=== PATIENT | female | born 1930 | race Caucasian/White ===

== ENCOUNTER 2018-03-22 00:31 | Inpatient (IN) | payer MEDICARE ==
[2018-03-22] MEDS ORDERED: NS 0.9% 1000 ML* 1,000 ML IV ONE (01:37)
--- NOTE | 2018-03-22 01:42 | ED ---
Abdominal Pain/Female - HPI Summary HPI Summary: The pt is a 87 y.o female who is presenting to the [facility] with a chief complaint of RUQ pain s/p fall. As per triage note, the pt has had multiple falls and left her stove on. The pt arrived via ambulance after alert was received upon fall. The Pt is responsive, alert to her name, the month as well as her address. She states she lives alone. She denies LOC. She receives assistance with a walker in order to ambulate. Pt also reports back pain and head injury s/p fall. - History of Current Complaint Chief Complaint: EDHipPelvisInjury Stated Complaint: FALL Time Seen by Provider: 03/22/18 01:18 Hx Obtained From: Patient, EMS Hx Last Menstrual Period: n/a Onset/Duration: Sudden Onset Timing: Constant Severity Initially: Severe Severity Currently: Severe Pain Intensity: 8 Pain Scale Used: 0-10 Numeric Location: Discrete At: RUQ Aggravating Factor(s): Nothing Alleviating Factor(s): Nothing Associated Signs and Symptoms: Positive: Back Pain, Other: - Head injury; Negative LOC Allergies/Adverse Reactions: Allergies Allergy/AdvReac Type Severity Reaction Status Date / Time Adhesive Tape [Plastic Tape] Allergy See Comment Verified 12/24/13 16:52 levofloxacin Allergy See Comment Verified 03/22/18 04:53 PMH/Surg Hx/FS Hx/Imm Hx Cardiovascular History: Reports: Hx Hypertension Sensory History: Denies: Hx Deafness Opthamlomology History: Denies: Hx Legally Blind - Surgical History Surgery Procedure, Year, and Place: bladder, B/L hip, appy, cholecystectomy, tubal ligatiion, hysterectomy Infectious Disease History: Yes Infectious Disease History: Denies: Traveled Outside the [place] in Last 30 Days - Family History Family History: Reviewed and Noncontributory - Social History Occupation: Retired Lives: Alone Alcohol Use: Occasionally Substance Use Type: Reports: None, Prescribed Review of Systems Constitutional: Negative Eyes: Negative ENT: Negative Cardiovascular: Negative Respiratory: Negative Positive: Abdominal Pain - RUQ Genitourinary: Negative Musculoskeletal: Other - Back pain Skin: Negative Neurological: Other - Head injury Negative: Syncope Psychological: Normal All Other Systems Reviewed And Are Negative: Yes Physical Exam - Summary Physical Exam Summary: VITAL SIGNS: Reviewed. GENERAL: Patient is a well-developed and nourished (FEMALE) who is lying comfortable in the stretcher. Patient is not in any acute respiratory distress. HEAD AND FACE: No signs of trauma. No ecchymosis, hematomas or skull depressions. No sinus tenderness. EYES: PERRLA, EOMI x 2, No injected conjunctiva, no nystagmus. EARS: Hearing grossly intact. Ear canals and tympanic membranes are within normal limits. MOUTH: Oropharynx within normal limits. NECK: Supple, trachea is midline, no adenopathy, no JVD, no carotid bruit, no c- spine tenderness, neck with full ROM. CHEST: Symmetric, no tenderness at palpation LUNGS: Clear to auscultation bilaterally. No wheezing or crackles. CVS: Regular rate and rhythm, S1 and S2 present, no murmurs or gallops appreciated. ABDOMEN: RUQ Tenderness EXTREMITIES: FROM in all major joints, no edema, no cyanosis or clubbing. NEURO: Alert and oriented x 3. No acute neurological deficits. Speech is normal and follows commands. SKIN: Dry and warm Triage Information Reviewed: Yes Vital Signs On Initial Exam: Initial Vitals Temp Pulse Resp BP Pulse Ox 97.4 F 59 20 143/65 90 03/22/18 01:04 03/22/18 01:04 03/22/18 01:04 03/22/18 01:04 03/22/18 01:04 Vital Signs Reviewed: Yes Diagnostics - Vital Signs Vital Signs Temp Pulse Resp BP Pulse Ox 03/22/18 01:04 97.4 F 59 20 143/65 90 - Laboratory Result Diagrams: 03/22/18 02:05 03/22/18 02:05 Lab Statement: Any lab studies that have been ordered have been reviewed, and results considered in the medical decision making process. - CT CT C-spine CT Interpretation Completed By: Radiologist - As per radiologist, the CT C- spine reveals no acute findings. The ED Physician has reviewed this radiology report. CT Brain CT Interpretation Completed By: Radiologist - As per radiologist, the CT Brain reveals no acute findings. The ED Physician has reviewed this radiology report. - EKG 0115 EKG Rhythm: Sinus Bradycardia - [address] Segment: Non-Specific EKG Interpretation: Normal axis, and normal intervals at 0115 Abdominal Pain Fem Course/Dx - Course Course Of Treatment: The pt is a 87 y/o female with a chief complaint of RUQ pain s/p falls. She reportedly fell multiple times as per EMS and triage notes. The pt will be signed out to Dr. Balderrama pending disposition and Ct Chest/Abd/ Pelvis results. The dx will be fall and right sided abd pain. - Diagnoses Provider Diagnoses: Right sided abdominal pain, Fall Discharge - Sign-Out/Discharge Documenting (check all that apply): Sign-Out Patient Signing out patient TO: Shmuel Balderrama - Pending disposition and CT Chest/Abd/ Pelvis - Discharge Plan Condition: Stable Referrals: Renato Solomon MD [Primary Care Provider] - - Attestation Statements Document Initiated by Scribe: Yes Documenting Scribe: Jim Figueroa Provider For Whom Scribe is Documenting (Include Credential): Dr. Jung Rivera Scribe Attestation: Jim Reyna, scribed for Dr. Jung Rivera on 03/22/18 at 0657.
[2018-03-22 02:22] LABS: ABS Basophils 0 10^3/ul (0-0.2); ABS Eosinophils 0.1 10^3/ul (0-0.6); ABS Lymphocytes 2.1 10^3/ul (1.0-4.8); ABS Monocytes 0.5 10^3/ul (0-0.8); ABS Neutrophils 4.3 10^3/ul (1.5-7.7); ABS Nucleated RBC 0 10^3/ul; Eosinophil % 1.3 % (0-6); Hematocrit 40 % (35-47); Hemoglobin 13.4 g/dl (12.0-16.0); Lymphocyte % 29.5 % (25-47); Mean Corpuscular HGB Conc 34 g/dl (31-36); Mean Corpuscular Hemoglobin 31 pg (27-31); Mean Corpuscular Volume 91 fL (80-97); Mean Platelet Volume 6.7 um3 (7.4-10.4); Nucleated Red Blood Cells % 0; Platelet Count 229 10^3/ul (150-450); Red Blood Count 4.36 10^6/ul (4.00-5.40); Red Cell Distribution Width 14 % (10.5-15)
[2018-03-22 02:30] LABS: INR 0.88 (0.77-1.02)
[2018-03-22 02:37] LABS: EGFR Non-African American 46.7 (>60)
[2018-03-22] MEDS ORDERED: Iodixanol* (CONTRAST) 320 MG/ML 100 ML SDV IV ONE (02:55)
--- NOTE | 2018-03-22 05:00 | RAD ---
EXAM: CT Head Without Intravenous Contrast CLINICAL HISTORY: 87 years old, female; Injury or trauma; Fall TECHNIQUE: Axial computed tomography images of the head/brain without intravenous contrast. All CT scans at this facility use at least one of these dose optimization techniques: automated exposure control; mA and/or kV adjustment per patient size (includes targeted exams where dose is matched to clinical indication); or iterative reconstruction. COMPARISON: No relevant prior studies available. FINDINGS: Brain: There is moderate diffuse cerebral atrophy present, consistent with this patient's age. There is moderate diffuse heterogeneity of the white matter attenuation, consistent with chronic white matter ischemic changes. No hemorrhage. Ventricles: Unremarkable. No ventriculomegaly. Bones/joints: Unremarkable. No acute fracture. Soft tissues: Unremarkable. Sinuses: Unremarkable as visualized. No acute sinusitis. Mastoid air cells: Unremarkable as visualized. No mastoid effusion. IMPRESSION: No acute findings.
--- NOTE | 2018-03-22 05:07 | RAD ---
EXAM: CT Cervical Spine Without Intravenous Contrast CLINICAL HISTORY: 87 years old, female; Injury or trauma; Fall; Initial encounter; Abrasion TECHNIQUE: Axial computed tomography images of the cervical spine without intravenous contrast. All CT scans at this facility use at least one of these dose optimization techniques: automated exposure control; mA and/or kV adjustment per patient size (includes targeted exams where dose is matched to clinical indication); or iterative reconstruction. COMPARISON: DX LSP SP LUMBARSACRAL 4+ VWS 08/19/2016 12:10 PM FINDINGS: Vertebrae: Unremarkable. No acute fracture. Discs/spinal canal/neural foramina: The cervical spine demonstrates moderate degenerative changes at multiple levels. No spinal canal stenosis. Soft tissues: Unremarkable. Lung apices: Unremarkable as visualized. IMPRESSION: No acute findings.
--- NOTE | 2018-03-22 07:12 | RAD ---
EXAM: CT Abdomen and Pelvis Without Intravenous Contrast CLINICAL HISTORY: 87 years old, female; Injury or trauma; Fall; Initial encounter; Abrasion TECHNIQUE: Axial computed tomography images of the abdomen and pelvis without intravenous contrast. All CT scans at this facility use at least one of these dose optimization techniques: automated exposure control; mA and/or kV adjustment per patient size (includes targeted exams where dose is matched to clinical indication); or iterative reconstruction. Coronal and sagittal reformatted images were created and reviewed. COMPARISON: No relevant prior studies available. FINDINGS: Lung bases: Unremarkable. No mass. No consolidation. ABDOMEN: Liver: Unremarkable. Gallbladder and bile ducts: Cholecystectomy. No ductal dilation. Pancreas: Unremarkable. No ductal dilation. Spleen: Unremarkable. No splenomegaly. Adrenals: Unremarkable. No mass. Kidneys and ureters: Moderate dilatation of the collecting system the right kidney with dilatation of an extrarenal pelvis. Moderate dilatation of the left ureter down to level of the pelvis. No calcified intraluminal stone. There is a calcified stone in a renal calyx which is nonobstructing. Right renal cortical cysts measuring 2.5 cm in diameter. The left kidney is of normal size and appearance. No hydronephrosis. Stomach and bowel: Surgical weston are in a segment of small bowel. No bowel obstruction. No bowel wall thickening. No free abdominal fluid or air. There are some diverticular changes in the area of the descending colon sigmoid colon. No evidence of acute diverticulitis. PELVIS: Appendix: No findings to suggest acute appendicitis. Bladder: Distended bladder. No intraluminal bladder stone. Reproductive: Unremarkable as visualized. ABDOMEN and PELVIS: Intraperitoneal space: Unremarkable. No free air. No significant fluid collection. Bones/joints: Bilateral hip arthroplasty. This obscures portions of the pelvis. No acute fracture. No dislocation. Soft tissues: Unremarkable. Vasculature: Unremarkable. No abdominal aortic aneurysm. Lymph nodes: Unremarkable. No enlarged lymph nodes. IMPRESSION: 1. Right-sided hydronephrosis with distention of the right ureter down to level of the pelvis. No calcified intraluminal stone. Suggest consideration of an CT urogram or possibly a retrograde study to assess the etiology of the distal renal ureter stenosis. No obvious mass lesion is demonstrated. EXAM: CT Chest Without Intravenous Contrast CLINICAL HISTORY: 87 years old, female; Injury or trauma; Fall; Initial encounter; Abrasion TECHNIQUE: Axial computed tomography images of the chest without intravenous contrast. All CT scans at this facility use at least one of these dose optimization techniques: automated exposure control; mA and/or kV adjustment per patient size (includes targeted exams where dose is matched to clinical indication); or iterative reconstruction. Coronal and sagittal reformatted images were created and reviewed. COMPARISON: OT HIP RT HIP RIGHT 2 VIEWS AND PELVIS 08/19/2016 12:10 PM FINDINGS: Lungs: Linear opacities looking lung bases which may represent areas of atelectasis. No traumatic bone or contusion. No traumatic pneumatocele. Pleural space: No pleural effusion or pneumothorax. Heart: Moderate coronary calcification. No pericardial thickening or effusion. Thyroid: Hypodense lesion involving the posterior medial aspect of the right thyroid lobe. This measures approximately 2 cm in AP length and 8 mm in width. Bones/joints: Acute fractures of the right 10th to 12th ribs. The 11th and 12th rib fractures has overlapping fracture fragments. Old fracture of the right 8th lateral rib fracture. Old fracture of the of the left 10th and 11th ribs. Anterior wedged compression fracture of T12 with loss of anterior height by about 60-70 %. Retropulsion of the posterior aspect of the T12 vertebral body into the spinal canal causing mild to moderate central canal stenosis. No perivertebral hematoma is seen. No dislocation. Soft tissues: Unremarkable. Vasculature: Calcification in the wall involving the thoracic aorta. No aneurysmal dilatation. Lymph nodes: No mediastinal adenopathy. IMPRESSION: 1. Multiple fractures of the right inferior rib cage. Approximately the right 10th to 12th ribs are involved. Overlapping fractures of the right 11th and 12th ribs. No associated pneumothorax or hemothorax. No traumatic pulmonary contusion or pneumatocele. Linear opacities in the lung bases which may represent areas of platelike atelectasis and/or scarring. 2. Anterior wedge compression fracture of T12 with loss of anterior height by about 60-70%. Slight retropulsion of the posterior aspect of the body of the T12 vertebral body into the spinal canal causing moderate central canal stenosis.
--- NOTE | 2018-03-22 07:27 | ED ---
Progress - Progress Note Progress Note: SIGN-OUT RECEIVED FROM DR. RIVERA AT SHIFT CHANGE PENDING IMAGING RESULTS AND DISPO. An 87 y/o F presents to ED s/p fall with c/o RUQ pain. At 0731: ED provider at bedside Discussing img results and plans to admit. - Results/Orders Results/Orders: CHEST/ABD/PELVIS CT as read by radiologist: IMPRESSION: 1. Right-sided hydronephrosis with distention of the right ureter down to level of the pelvis. No calcified intraluminal stone. Suggest consideration of an CT urogram or possibly a retrograde study to assess the etiology of the distal renal ureter stenosis. No obvious mass lesion is demonstrated. ED provider has reviewed this report. Course/Dx - Course Course Of Treatment: Ms. Deras was signed out to me at change of shift from Dr. Rivera. She apparently fell in the wee hours of the night and it sounds like she fell asleep with food still cooking on the stove. He had obtained a CT scan of her head and neck and she was complaining of right flank and chest pain and therefore a CT of her chest abdomen pelvis was pending. CT returned showing a right hydronephrosis, acute rib fractures laterally on the right 10- 12 and a T12 compression fracture with a small retropulsed fragment. Dr. Christianson was contacted about the T12 fracture and recommended bed rest until further evaluation with MR could be obtained although he thinks this is likely all old. Dr. Torres was contacted for the hospitalist and agreed to admit the patient. - Diagnoses Provider Diagnoses: Multiple rib fractures, Hydronephrosis, Compression fracture of T12 vertebra - Provider Notifications Discussed Care Of Patient With: Jazlyn Torres - Hospitalist Time Discussed With Above Provider: 07:25 Instructed by Provider To: Admit As Inpatient Discharge - Sign-Out/Discharge Documenting (check all that apply): Patient Departure - ADM, Receiving Sign-Out Receiving patient FROM: Leonel Rivera - Discharge Plan Condition: Stable Disposition: ADMITTED TO [facility] - Billing Disposition and Condition Condition: STABLE Disposition: Admitted to [facility] - Attestation Statements Document Initiated by Scribe: Yes Documenting Scribe: Gayle Johnson Provider For Whom Scribe is Documenting (Include Credential): Dr. Shmuel Balderrama MD Scribe Attestation: I, Gayle Johnson, scribed for Dr. Shmuel Balderrama MD on 03/22/18 at 0924. Scribe Documentation Reviewed: Yes Provider Attestation: The documentation as recorded by the saeibe, Gayle Johnson accurately reflects the service I personally performed and the decisions made by me, Dr. Shmuel Balderrama MD Consult Consult: AT 0728: Consult with Dr. Woody, neuro surgery Recommends bed rest and MRI.
--- NOTE | 2018-03-22 08:11 | RAD ---
Indication: Back pain. CT of the lumbar spine was obtained in the axial plane. Sagittal and coronal reconstructed images were obtained. The vertebral bodies appear normal in height. There is 50% compression of the T12 vertebra which was present on prior radiograph dated August 19, 2016 and are likely old. Degenerative disc disease at L5-S1, L4-L5, L3-L4, L2-L3 and L1-L2 is noted. There is minimal grade 1 spondylolisthesis of L4 on 5 and L5 on S1. Spinal canal is intact. No fracture is identified. Sacroiliac joint is intact. IMPRESSION: Approximately 50% compression of T12 which was present on prior radiographs dated August 19, 2016. Multilevel degenerative disc disease is noted without evidence of fracture.
[2018-03-22] MEDS ORDERED: Morphine VIAL* 4 MG/ML VIAL (1 ml vial) IV PRN (08:15)
[2018-03-22] MEDS ORDERED: Ondansetron ODT TAB* 4 MG PO PRN (08:15)
[2018-03-22] MEDS ORDERED: Acetaminophen TAB* 325 MG PO PRN (08:15)
[2018-03-22] MEDS ORDERED: ALPRAZolam TAB* 0.5 MG PO PRN (08:27)
[2018-03-22] MEDS ORDERED: Cyclobenzaprine TAB* 10 MG PO PRN (08:28)
[2018-03-22 08:50] LABS: Urine Appearance Cloudy; Urine Blood Negative (Negative); Urine Color Yellow; Urine Ketones Negative (Negative); Urine Protein Negative (Negative); Urine Specific Gravity 1.008 (1.010-1.030); Urine Urobilinogen Negative (Negative)
[2018-03-22] MEDS ORDERED: Vitamin THERAPEUTIC TAB PO SCH (09:00)
[2018-03-22] MEDS: HYDROcodone/ACETAMIN 5-325 MG* 1 TAB PO PRN (09:37)
[2018-03-22] MEDS: Aspirin 81 mg CHEW TAB* 81 MG TAB.CHEW PO SCH (10:36)
[2018-03-22] MEDS: DULoxetine DR CAP* 30 MG CAP.DR PO SCH (10:37)
[2018-03-22] MEDS: Losartan TAB* 25 MG PO SCH (10:37)
[2018-03-22] MEDS: Diltiazem CD CAP* 120 MG PO SCH ×2 (10:38→21:20)
[2018-03-22] MEDS: Omeprazole CAP* 20 MG PO SCH ×2 (10:38→21:20)
[2018-03-22] MEDS: Heparin VIAL(*) 5000 UNITS/ML VIAL (FIVE THOUSAND) SUBCUT SCH ×2 (14:07→21:21)
[2018-03-22] MEDS: NS 0.9% 1000 ML* 1,000 ML IV SCH (16:22)
--- NOTE | 2018-03-22 17:07 | RAD ---
Indication: Compression fracture with retropulsion. Sagittal T1, T2, STIR, axial T2 and T1-weighted images of the lumbar spine and thoracolumbar spine was obtained. There is marked compression of the T12 vertebra. No evidence of bone marrow edema to suggest a recent injury is noted. There is mild retropulsion of the superior posterior endplate. There is flattening the thecal sac without definite evidence of spinal CORD impingement. The conus medullaris ends at approximately L1-L2 level. The remainder of the vertebral bodies appear normal in height. At L2-L3 broad-based protrusion flattens the thecal sac. At L3-L4 broad-based protrusion flattens the thecal sac. At L4-L5 broad-based protrusion and facet arthropathy is noted. IMPRESSION: Old compression fracture of T12 with no bone marrow edema. Mild retropulsion of the superior posterior endplate is noted without definite evidence of cord compression. There is retropulsion of approximately 4 mm.
--- NOTE | 2018-03-22 19:50 | HP ---
CC: Dr. Kong * HISTORY AND PHYSICAL: DATE OF ADMISSION: 03/22/18 PRIMARY CARE PROVIDER: Dr. Kong. CHIEF COMPLAINT: Fall and right flank pain. HISTORY OF PRESENT ILLNESS: Ms. Deras is an 87-year-old female who has a history of hypertension, hyperlipidemia, osteoporosis, coronary artery disease, and history of kidney stones, who presents to the emergency room with complaints of fall with subsequent right flank pain. The patient states she was getting up to start moving about when she suddenly lost her balance and fell backwards. She states that she hit the floor. EMS was contacted via her Life Alert button and they helped her up. The patient states that she then was getting up again and again fell backwards necessitating EMS to return and this time she was brought to the emergency room for evaluation. Since the fall, the patient has had pain in her right flank. She describes this more towards the right hip. The patient states that the pain has been somewhat intermittent and grabbing at times. She has no other complaints at this point. PAST MEDICAL HISTORY: 1. Hypertension. 2. Hyperlipidemia. 3. GERD. 4. History of kidney stones. 5. Osteoporosis. 6. Osteoarthritis. 7. Coronary artery disease. PAST SURGICAL HISTORY: 1. Bilateral hip replacements. 2. Hysterectomy. 3. Lithotripsy x2. 4. Bilateral cataract extraction. 5. Cholecystectomy. 6. Appendectomy. MEDICATIONS: 1. Cymbalta 60 mg p.o. daily. 2. Simvastatin 40 mg p.o. q.h.s. 3. Multivitamin with iron 1 tab p.o. daily. 4. Gabapentin 300 mg p.o. at bedtime. 5. Aspirin 81 mg p.o. daily. 6. Xanax 0.5 mg p.o. b.i.d. p.r.n. anxiety. 7. Tylenol 650 mg p.o. q.4 hours p.r.n. pain. 8. Omeprazole 40 mg p.o. b.i.d. 9. Losartan 100 mg p.o. daily. 10. Diltiazem CD 120 mg p.o. b.i.d. 11. Alendronate 70 mg p.o. weekly. ALLERGIES: LEVAQUIN and PLASTIC TAPE. FAMILY HISTORY: Mom of heart disease. Dad due to stabbing. SOCIAL HISTORY: The patient does not smoke. She drinks alcohol rarely. 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 She is . She has 2 children. She indicates that her daughter, Lakisha Chapman, will be her health care proxy. REVIEW OF SYSTEMS: The patient denies any fevers, chills, or anorexia. No chest pain. She does admit to chronic lower extremity edema. No cough. She has had some intermittent shortness of breath though none currently. She has had some intermittent nausea over the last couple of weeks. No diarrhea, no abdominal pain, no hematuria, no dysuria, no focal weakness or sensory loss. No sudden changes in vision. No dysphagia. She does complain of pain around the right hip area. No rashes. She also admits to mild depression. PHYSICAL EXAMINATION GENERAL: The patient is a well-developed, elderly female seen lying flat in the stretcher, in no acute distress. VITAL SIGNS: Blood pressure 154/68, pulse 62, respirations 21, temp 97.4, O2 sat 93% on room air. HEENT: Pupils are equal and round. Extraocular muscles are intact. Oropharynx is clear. Oral mucosa is dry. The patient is edentulous. There is no submandibular, cervical, or supraclavicular adenopathy. Thyroid is not enlarged. No thyroid nodules noted. PULMONARY: Lungs are clear anteriorly and at the lateral bases. The patient does splint while taking a deep breath. CARDIAC: Normal S1 and S2. Regular rate and rhythm. I do not appreciate any murmurs. There is no lower extremity edema. ABDOMEN: Bowel sounds present. Abdomen is soft, nontender, and nondistended. MUSCULOSKELETAL: There is no cyanosis or clubbing of the digits. There is full active range of motion of all 4 extremities. NEURO: Cranial nerves II through XII are grossly intact. Sensation is intact to light touch throughout. Strength is 5/5 and symmetric in both upper and lower extremities bilaterally. PSYCH: The patient is alert, she is oriented x3. Affect appears appropriate. SKIN: Warm and dry. There are no rashes. DIAGNOSTIC STUDIES/LAB DATA: WBC 7.0, hemoglobin 13.4, hematocrit 40, platelets 229. INR 0.88. Sodium 134, potassium 3.6, chloride 101, CO2 of 25, BUN 19, creatinine 1.11, glucose 131, lactic acid 1.6, calcium 10.3. Bilirubin 0.5, AST 18, ALT 11, alk phos 62. CPK 144. Albumin 4.0, amylase 20. Urinalysis reveals cloudy urine with a specific gravity of 1.008 and otherwise no signs of infection. CT brain: No acute findings. CT cervical spine: No acute findings. CT chest, abdomen, and pelvis: Reveals right-sided hydronephrosis with distention of the ureter down to the level of the pelvis. No calcified intraluminal stone is noted. Suggests consideration of a CT urogram or possibly a retrograde study to assess the etiology of the distal renal ureteral stenosis. No obvious mass lesion is demonstrated. Multiple fractures of the right inferior rib cage are noted. Approximately the right 10th through the 12th ribs are involved. Overlapping fractures of the 11th and 12th ribs are noted. There is no associated pneumothorax or hemothorax. No traumatic pulmonary contusion or pneumatocele is noted. Linear opacities in the lung bases which may represent areas of plaque-like atelectasis and/or scarring is noted. There is also an anterior wedge compression fracture of T12 with a loss of anterior height by about 60% to 70%. Slight retropulsion of the posterior aspect of the body of the T12 vertebra into the spinal canal casing moderate central canal stenosis. Lumbar spine CT approximately 50% compression of T12, which was present on prior radiograph dated 08/19/16. Multilevel degenerative disk disease is noted without evidence of fracture. EKG reveals sinus bradycardia without any acute ST or T-wave abnormalities, though there are nonspecific T-wave abnormalities in the lateral leads. ASSESSMENT AND PLAN: Ms. Deras is an 87-year-old female with a history of osteoporosis, osteoarthritis, hypertension, hyperlipidemia, and coronary artery disease, who had been in her usual state of health until she fell due to loss of balance once requiring help to get up and the second time, at which point, she was brought to the emergency room and subsequently identified to have right- sided rib fractures and right-sided hydronephrosis in addition to a T12 compression fracture that has now been identified to be probably old. 1. Fall. This sounds to be secondary to loss of balance. The patient denied any dizziness or lightheadedness associated with this. She had no loss of consciousness. The patient will need a PT evaluation once she is off bedrest for evaluation of the possible retropulsion of the T12 vertebral body. The patient herself states that she was beginning to think that she could no longer manage at home in her senior apartment and was thinking about looking into getting into a senior living. At this point, she will likely need subacute rehab which will be a gateway into long-term care. 2. Right-sided 10 through 12 rib fractures. The patient will have pain control as well as Flexeril for muscle spasms. We will order incentive spirometry. Encouraged the patient to take deep breaths to prevent atelectasis and possible pneumonia. The patient will have Tylenol, Climax, and morphine as escalating levels of pain control. 3. T12 compression fracture. Dedicated lumbar spine CT from reconstructed images indicates that this is likely 50%. No retropulsion was noted on that imaging study. The ER provider did speak with Dr. Woody, who recommended getting an MRI of the lumbar spine. This has been ordered. The patient will remain on bedrest for now though she has no changes in sensation in her legs or weakness in her legs. After the MRI is completed and is evaluated by Dr. Woody, the patient can likely come off bedrest and start with physical therapy. 4. Right-sided hydronephrosis. The patient has a history of kidney stones in the past requiring lithotripsy. The patient herself did not remember this; however, it was identified in a history and physical from 8 to 9 years ago. I will speak to Urology about the next appropriate step in evaluating this. 5. Hypertension. The patient will be maintained on her usual doses of losartan and diltiazem CD. 6. Hyperlipidemia. Will continue statin. 7. Gastroesophageal reflux disease. Continue twice daily omeprazole. 8. Coronary artery disease. The patient was previously identified to have diffuse mild coronary artery disease on a distant catheterization. The patient has no complaints of chest pain. For now, she will continue on her aspirin and statin. 9. DVT prophylaxis. According to the Adult Thrombosis Prophylaxis Risk Factor Assessment Guide, the patient has a total risk factor score of 4 making her high risk. She will be placed on heparin 5000 units subcutaneous q.8 hours. 10. Code status is DNR. TIME SPENT: Sixty-five minutes was spent admitting this patient. [id number]/[facility] #: [id number] MARK
--- NOTE | 2018-03-22 20:20 | RAD ---
EXAM: US Retroperitoneal Limited, Renal CLINICAL HISTORY: 87 years old, female; Condition or disease; Kidney or ureter condition; Hydronephrosis; Additional info: Eval r hydronephrosis, eval for ureteral jet TECHNIQUE: Real-time ultrasound of the retroperitoneum (limited) with image documentation. COMPARISON: C/A/P WO CT CHEST/ABD/PEL W/O 03/22/2018 5:25 AM FINDINGS: Right kidney: As seen on the prior CT, there appears to be mild hydronephrosis on the current exam. The right ovary measures 9.2 x 5.0 x 4.6 cm. As seen on a prior CT, there is a simple appearing cyst in the interpolar region of the right kidney measuring a maximum of 2.2 cm. No visible right renal calculi. Left kidney: The left kidney was not evaluated. Bladder: A Waller catheter is in place with the urinary bladder empty of urine. No ureteral jets were visualized. IMPRESSION: 1. A Waller catheter is in place with the urinary bladder empty of urine. No ureteral jets were visualized. 2. As seen on the prior CT, there appears to be mild hydronephrosis on the current exam.
[2018-03-22] MEDS: Atorvastatin* 20 MG TAB PO SCH (21:20)
[2018-03-22] MEDS: Gabapentin CAP(*) 300 MG PO SCH (21:21)
--- NOTE | 2018-03-22 23:11 | CONS ---
CONSULTATION REPORT: DATE OF CONSULT: 03/22/18 HISTORY OF PRESENT ILLNESS: The patient is a very pleasant 87-year-old female with history of hypertension, hyperlipidemia, osteoporosis, and coronary artery disease, kidney stones, who presented to the emergency room after a fall with right flank pain. The patient was diagnosed with right T11 and T12 rib fractures and T12 vertebral body by CT of the chest, abdomen and pelvis. Requested to see the patient by ED physician regarding T12 fracture. The patient is a poor historian and she reports that she lost her balance and fell backwards when she was trying to sit on a chair. She did not lose her consciousness. She denies any weakness, numbness, or tingling of the extremities. Denies any back or neck pain. Denies urinary or GI incontinence. History is somewhat limited because of the patient's cooperation. PAST MEDICAL HISTORY: Hypertension, hyperlipidemia, GERD, history of kidney stones, osteoporosis, osteoarthritis, coronary artery disease. PAST SURGICAL HISTORY: Bilateral hip replacement, hysterectomy, lithotripsy, bilateral cataract extraction, cholecystectomy, appendectomy. MEDICATIONS: The patient is on: 1. Cymbalta. 2. Simvastatin. 3. Multivitamin. 4. Gabapentin. 5. Aspirin. 6. Xanax. 7. Tylenol. 8. Omeprazole. 9. Losartan. 10. Diltiazem. 11. Alendronate. ALLERGIES: LEVAQUIN and PLASTIC TAPE. FAMILY HISTORY: Heart disease. SOCIAL HISTORY: Tobacco negative. Alcohol occasionally. Recreational drug use negative. 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 She is a and she has 2 children. PHYSICAL EXAM: The patient is not in acute distress. She is awake, alert, and appropriate. Unfortunately, exam was somewhat limited because of her difficulty with hearing. She answers questions appropriately and she is oriented to herself. Her pupils are equal and reactive. Cranial nerves II through XII grossly intact. She does have bilateral decreased hearing. Motor is 4 to 5/5 in all extremities. Sensory grossly intact to light touch. Deep tendon reflexes +1 bilaterally. No clonus, no Babinski. Mcintosh's negative. Straight leg raise negative in sitting position. No pain to palpation of cervical, thoracic, and lumbar spine. She has free range of motion of the cervical spine. DIAGNOSTIC STUDIES/LAB DATA: The patient had a CT scan of the brain that did not reveal any acute findings. The patient had a CT scan of the cervical spine that did not reveal any evidence of fracture. The patient had the CT scan of the chest, abdomen and pelvis that revealed right T10 and T11 rib fracture and possible chronic T12 compression fracture with mild retropulsion. CT of the lumbar spine revealed similar findings with chronic T12 compression fracture with mild retropulsion that has sclerotic edges, which was present in the previous x-ray of her lumbar spine in 08/19/16. MRI of her lumbar spine revealed degenerative disk disease with chronic T12 fracture without evidence of history of changes. ASSESSMENT: The patient is a very pleasant 87-year-old female with multiple medical problems with history of a fall and rib fractures with chronic T12 compression fracture. PLAN: The patient at this point is resting comfortably. No surgical intervention is indicated at this time for her compression fracture. The patient was kindly admitted by internal medicine. From our standpoint, she can be out of bed as tolerated regarding her thoracic T12 fracture. We will be available as needed. Thank you for allowing us to participate in the care of this patient. Please do not hesitate to contact our office in case you have any further questions or concerns regarding the care of this patient. [id number]/[facility] #: [id number] MARK
[2018-03-23] MEDS: NS 0.9% 1000 ML* 1,000 ML IV SCH ×3 (04:03→13:50)
[2018-03-23] MEDS: Heparin VIAL(*) 5000 UNITS/ML VIAL (FIVE THOUSAND) SUBCUT SCH ×3 (05:08→20:26)
[2018-03-23] MEDS: DULoxetine DR CAP* 30 MG CAP.DR PO SCH (09:52)
[2018-03-23] MEDS: Diltiazem CD CAP* 120 MG PO SCH ×2 (09:52→20:26)
[2018-03-23] MEDS: Omeprazole CAP* 20 MG PO SCH ×2 (09:53→20:25)
[2018-03-23] MEDS: Losartan TAB* 25 MG PO SCH (09:54)
[2018-03-23] MEDS: Aspirin 81 mg CHEW TAB* 81 MG TAB.CHEW PO SCH (09:55)
[2018-03-23] MEDS: Multivitamins/Minerals TAB PO SCH (09:55)
--- NOTE | 2018-03-23 12:52 | PN ---
Subjective Date of Service: 03/23/18 Interval History: SOme pain with moving. Appetite OK. Objective Active Medications: Acetaminophen (Tylenol Tab*) 650 mg PO Q4H PRN PRN Reason: PAIN Last Admin: 03/23/18 09:53 Dose: 650 mg Hydrocodone Bitart/Acetaminophen ([place] 5-325 Tab*) 1 tab PO Q6H PRN PRN Reason: PAIN Last Admin: 03/22/18 09:37 Dose: 1 tab Alprazolam (Xanax Tab*) 0.5 mg PO BID PRN PRN Reason: ANXIETY Last Admin: 03/22/18 10:38 Dose: 0.5 mg Aspirin (Aspirin 81 Mg Chew Tab*) 81 mg PO DAILY [facility] Last Admin: 03/23/18 09:55 Dose: 81 mg Atorvastatin Calcium (Lipitor*) 20 mg PO BEDTIME [facility] Last Admin: 03/22/18 21:20 Dose: 20 mg Cyclobenzaprine HCl (Flexeril Tab*) 5 mg PO TID PRN PRN Reason: SPASMS Last Admin: 03/22/18 10:38 Dose: 5 mg Diltiazem HCl (Cardizem Cd Cap*) 120 mg PO BID [facility] Last Admin: 03/23/18 09:52 Dose: 120 mg Duloxetine HCl (Cymbalta Cap*) 60 mg PO DAILY [facility] Last Admin: 03/23/18 09:52 Dose: 60 mg Gabapentin (Neurontin Cap(*)) 300 mg PO BEDTIME [facility] Last Admin: 03/22/18 21:21 Dose: 300 mg Heparin Sodium (Porcine) (Heparin Vial(*)) 5,000 units SUBCUT Q8HR [facility] Last Admin: 03/23/18 05:08 Dose: 5,000 units Heparin Sodium (Porcine) (Heparin Flush Picc/Ml/Cvc(*)) 1 - 3 ml FLUSH 0600, 1800 [facility]; Protocol Last Admin: 03/23/18 05:08 Dose: 1 ml Sodium Chloride (Ns 0.9% 1000 Ml*) 1,000 mls @ 100 mls/hr IV PER RATE [facility] Last Admin: 03/23/18 04:05 Dose: 100 mls/hr Losartan Potassium (Cozaar Tab*) 100 mg PO DAILY [facility] Last Admin: 03/23/18 09:54 Dose: 100 mg Morphine Sulfate (Morphine Vial*) 2 mg IV Q4H PRN PRN Reason: PAIN - MILD Multivitamins/Minerals (Theragran/Minerals Tab*) 1 tab PO DAILY [facility] Last Admin: 03/23/18 09:55 Dose: 1 tab Omeprazole (Prilosec Cap*) 40 mg PO BID [facility] Last Admin: 03/23/18 09:53 Dose: 40 mg Ondansetron HCl (Zofran Odt Tab*) 4 mg PO Q6H PRN PRN Reason: NAUSEA Vital Signs - 8 hr 03/23/18 07:28 Temperature 98.5 F Pulse Rate 80 Respiratory 20 Rate Blood Pressure 122/59 (mmHg) O2 Sat by Pulse 91 Oximetry Oxygen Devices in Use Now: None Appearance: Alert, partly up in bed. Neutral affect. Looks comfortable at rest. Eyes: No Scleral Icterus Respiratory: Symmetrical Chest Expansion and Respiratory Effort, Clear to Auscultation, Clear to Percussion, - - Very tender R lateral ribs Extremities: No Edema, No Clubbing, Cyanosis, - Skin: No Rash or Ulcers, No Nodules or Sclerosis, - Neurological: Alert and Oriented x 3, NL Sensation Result Diagrams: 03/22/18 02:05 03/22/18 02:05 Assess/Plan/Problems-Billing Assessment: - Patient Problems (1) Rib fracture Current Visit: Yes Status: Acute Code(s): S22.39XA - FRACTURE OF ONE RIB, UNSP SIDE, INIT FOR CLOS FX SNOMED Code(s): 54674173 Comment: May impair her mobility. PT eval pending. Scheduled and PRN APAP ordered. (2) HTN (hypertension) Current Visit: Yes Status: Acute Code(s): I10 - ESSENTIAL (PRIMARY) HYPERTENSION SNOMED Code(s): 59819257 Comment: Reduce losartan to 50 mg daily start 03/24 in view of fall and low diastolic BP. Continue diltiazem. (3) Hyperlipidemia Current Visit: Yes Status: Acute Code(s): E78.5 - HYPERLIPIDEMIA, UNSPECIFIED SNOMED Code(s): 74507634 Comment: Continue statin. (4) Chronic GERD Current Visit: Yes Status: Acute Code(s): K21.9 - GASTRO-ESOPHAGEAL REFLUX DISEASE WITHOUT ESOPHAGITIS SNOMED Code(s): 737501047 Comment: Continue omeprazole.
[2018-03-23] MEDS: Acetaminophen TAB* 325 MG PO SCH ×3 (13:53→20:26)
[2018-03-23] MEDS: HYDROcodone/ACETAMIN 5-325 MG* 1 TAB PO PRN (20:25)
[2018-03-23] MEDS: Atorvastatin* 20 MG TAB PO SCH (20:25)
[2018-03-23] MEDS: Gabapentin CAP(*) 300 MG PO SCH (20:26)
[2018-03-24] MEDS: NS 0.9% 1000 ML* 1,000 ML IV SCH ×2 (01:27→14:07)
[2018-03-24] MEDS: Heparin VIAL(*) 5000 UNITS/ML VIAL (FIVE THOUSAND) SUBCUT SCH ×3 (05:47→21:07)
[2018-03-24] MEDS: Aspirin 81 mg CHEW TAB* 81 MG TAB.CHEW PO SCH (08:50)
[2018-03-24] MEDS: Multivitamins/Minerals TAB PO SCH (08:51)
[2018-03-24] MEDS: DULoxetine DR CAP* 30 MG CAP.DR PO SCH (08:51)
[2018-03-24] MEDS: Losartan TAB* 25 MG PO SCH (08:51)
[2018-03-24] MEDS: Omeprazole CAP* 20 MG PO SCH ×2 (08:52→21:09)
[2018-03-24] MEDS: Diltiazem CD CAP* 120 MG PO SCH ×2 (08:52→21:11)
[2018-03-24] MEDS: Acetaminophen TAB* 325 MG PO SCH ×4 (08:52→21:08)
--- NOTE | 2018-03-24 09:49 | PN ---
Subjective Date of Service: 03/24/18 Interval History: Pain control OK. Slept well last night. Appetite OK. No new c/o. Objective Active Medications: Acetaminophen (Tylenol Tab*) 650 mg PO Q4H PRN PRN Reason: PAIN Last Admin: 03/23/18 09:53 Dose: 650 mg Acetaminophen (Tylenol Tab*) 650 mg PO QID [facility] Last Admin: 03/24/18 08:52 Dose: 650 mg Hydrocodone Bitart/Acetaminophen ([place] 5-325 Tab*) 1 tab PO Q6H PRN PRN Reason: PAIN Last Admin: 03/23/18 20:25 Dose: 1 tab Alprazolam (Xanax Tab*) 0.5 mg PO BID PRN PRN Reason: ANXIETY Last Admin: 03/22/18 10:38 Dose: 0.5 mg Aspirin (Aspirin 81 Mg Chew Tab*) 81 mg PO DAILY [facility] Last Admin: 03/24/18 08:50 Dose: 81 mg Atorvastatin Calcium (Lipitor*) 20 mg PO BEDTIME [facility] Last Admin: 03/23/18 20:25 Dose: 20 mg Diltiazem HCl (Cardizem Cd Cap*) 120 mg PO BID [facility] Last Admin: 03/24/18 08:52 Dose: 120 mg Duloxetine HCl (Cymbalta Cap*) 30 mg PO DAILY [facility] Last Admin: 03/24/18 08:51 Dose: 30 mg Gabapentin (Neurontin Cap(*)) 300 mg PO BEDTIME [facility] Last Admin: 03/23/18 20:26 Dose: 300 mg Heparin Sodium (Porcine) (Heparin Vial(*)) 5,000 units SUBCUT Q8HR [facility] Last Admin: 03/24/18 05:47 Dose: 5,000 units Heparin Sodium (Porcine) (Heparin Flush Picc/Ml/Cvc(*)) 1 - 3 ml FLUSH 0600, 1800 [facility]; Protocol Last Admin: 03/24/18 05:47 Dose: 1 ml Sodium Chloride (Ns 0.9% 1000 Ml*) 1,000 mls @ 100 mls/hr IV PER RATE [facility] Last Admin: 03/24/18 01:27 Dose: 100 mls/hr Losartan Potassium (Cozaar Tab*) 50 mg PO DAILY [facility] Morphine Sulfate (Morphine Vial*) 2 mg IV Q4H PRN PRN Reason: PAIN - MILD Multivitamins/Minerals (Theragran/Minerals Tab*) 1 tab PO DAILY [facility] Last Admin: 03/24/18 08:51 Dose: 1 tab Omeprazole (Prilosec Cap*) 40 mg PO BID [facility] Last Admin: 03/24/18 08:52 Dose: 40 mg Ondansetron HCl (Zofran Odt Tab*) 4 mg PO Q6H PRN PRN Reason: NAUSEA Vital Signs - 8 hr 03/24/18 03/24/18 03/24/18 03:23 07:57 08:00 Temperature 98.2 F 97.9 F Pulse Rate 59 65 Respiratory 20 20 20 Rate Blood Pressure 135/64 148/65 (mmHg) O2 Sat by Pulse 91 92 Oximetry Oxygen Devices in Use Now: None Appearance: Alert, sitting up in bed. In good spirits. Looks comfortable at rest. Eyes: No Scleral Icterus Respiratory: Symmetrical Chest Expansion and Respiratory Effort, Clear to Auscultation, Clear to Percussion Cardiovascular: NL Sounds; No Murmurs; No JVD, RRR, No Edema, - Extremities: No Edema, No Clubbing, Cyanosis, - Skin: No Rash or Ulcers, No Nodules or Sclerosis, - Neurological: Alert and Oriented x 3, NL Sensation Result Diagrams: 03/22/18 02:05 03/22/18 02:05 Microbiology and Other Data: Microbiology 03/24/18 01:30 Nasal Screen MRSA (PCR) - Final Nasal Mrsa Not Detected Assess/Plan/Problems-Billing Assessment: - Patient Problems (1) Rib fracture Current Visit: Yes Status: Acute Code(s): S22.39XA - FRACTURE OF ONE RIB, UNSP SIDE, INIT FOR CLOS FX SNOMED Code(s): 65773264 Comment: Mix of new and old rib fx's, also some spinal stenosis on CT scan. May impair her mobility. PT eval pending. Continue scheduled and PRN APAP. (2) HTN (hypertension) Current Visit: Yes Status: Acute Code(s): I10 - ESSENTIAL (PRIMARY) HYPERTENSION SNOMED Code(s): 00655584 Comment: Reduce losartan to 50 mg daily start 03/25 in view of fall and low diastolic BP. Continue diltiazem. (3) Hyperlipidemia Current Visit: Yes Status: Acute Code(s): E78.5 - HYPERLIPIDEMIA, UNSPECIFIED SNOMED Code(s): 16244223 Comment: Continue statin. (4) Chronic GERD Current Visit: Yes Status: Acute Code(s): K21.9 - GASTRO-ESOPHAGEAL REFLUX DISEASE WITHOUT ESOPHAGITIS SNOMED Code(s): 929566490 Comment: Continue omeprazole.
[2018-03-24] MEDS: Gabapentin CAP(*) 300 MG PO SCH (21:08)
[2018-03-24] MEDS: Atorvastatin* 20 MG TAB PO SCH (21:11)
[2018-03-25] MEDS: Heparin VIAL(*) 5000 UNITS/ML VIAL (FIVE THOUSAND) SUBCUT SCH ×3 (05:26→22:53)
[2018-03-25] MEDS: NS 0.9% 1000 ML* 1,000 ML IV SCH ×2 (05:26→15:07)
[2018-03-25] MEDS: Acetaminophen TAB* 325 MG PO SCH ×4 (10:24→20:44)
[2018-03-25] MEDS: Losartan TAB* 25 MG PO SCH (10:25)
[2018-03-25] MEDS: Aspirin 81 mg CHEW TAB* 81 MG TAB.CHEW PO SCH (10:26)
[2018-03-25] MEDS: Omeprazole CAP* 20 MG PO SCH ×2 (10:26→20:47)
[2018-03-25] MEDS: Diltiazem CD CAP* 120 MG PO SCH ×2 (10:26→20:46)
[2018-03-25] MEDS: DULoxetine DR CAP* 30 MG CAP.DR PO SCH (10:27)
[2018-03-25] MEDS: Multivitamins/Minerals TAB PO SCH (10:27)
[2018-03-25] MEDS ORDERED: Cyclobenzaprine TAB* 10 MG PO PRN (14:41)
--- NOTE | 2018-03-25 14:44 | PN ---
Subjective Date of Service: 03/25/18 Interval History: Pt states she is doing ok. She has pain mostly with moving but does every once in a while get grabbing pain. At one point she states she has pain on the left and other times states the pain is on the R. She has been able to ambulate some. She is ok with going to rehab. Objective Active Medications: Acetaminophen (Tylenol Tab*) 650 mg PO Q4H PRN PRN Reason: PAIN Last Admin: 03/23/18 09:53 Dose: 650 mg Acetaminophen (Tylenol Tab*) 650 mg PO QID [facility] Last Admin: 03/25/18 10:24 Dose: 650 mg Hydrocodone Bitart/Acetaminophen ([place] 5-325 Tab*) 1 tab PO Q6H PRN PRN Reason: PAIN Last Admin: 03/23/18 20:25 Dose: 1 tab Alprazolam (Xanax Tab*) 0.5 mg PO BID PRN PRN Reason: ANXIETY Last Admin: 03/22/18 10:38 Dose: 0.5 mg Aspirin (Aspirin 81 Mg Chew Tab*) 81 mg PO DAILY [facility] Last Admin: 03/25/18 10:26 Dose: 81 mg Atorvastatin Calcium (Lipitor*) 20 mg PO BEDTIME [facility] Last Admin: 03/24/18 21:11 Dose: 20 mg Diltiazem HCl (Cardizem Cd Cap*) 120 mg PO BID [facility] Last Admin: 03/25/18 10:26 Dose: 120 mg Duloxetine HCl (Cymbalta Cap*) 30 mg PO DAILY [facility] Last Admin: 03/25/18 10:27 Dose: 30 mg Gabapentin (Neurontin Cap(*)) 300 mg PO BEDTIME [facility] Last Admin: 03/24/18 21:08 Dose: 300 mg Heparin Sodium (Porcine) (Heparin Vial(*)) 5,000 units SUBCUT Q8HR [facility] Last Admin: 03/25/18 05:26 Dose: 5,000 units Heparin Sodium (Porcine) (Heparin Flush Picc/Ml/Cvc(*)) 1 - 3 ml FLUSH 0600, 1800 [facility]; Protocol Last Admin: 03/25/18 05:26 Dose: 1 ml Sodium Chloride (Ns 0.9% 1000 Ml*) 1,000 mls @ 100 mls/hr IV PER RATE [facility] Last Admin: 03/25/18 05:26 Dose: 100 mls/hr Losartan Potassium (Cozaar Tab*) 50 mg PO DAILY [facility] Last Admin: 03/25/18 10:25 Dose: 50 mg Morphine Sulfate (Morphine Vial*) 2 mg IV Q4H PRN PRN Reason: PAIN - MILD Multivitamins/Minerals (Theragran/Minerals Tab*) 1 tab PO DAILY [facility] Last Admin: 03/25/18 10:27 Dose: 1 tab Omeprazole (Prilosec Cap*) 40 mg PO BID [facility] Last Admin: 03/25/18 10:26 Dose: 40 mg Ondansetron HCl (Zofran Odt Tab*) 4 mg PO Q6H PRN PRN Reason: NAUSEA Vital Signs - 8 hr 03/25/18 03/25/18 08:00 08:46 Temperature 98.5 F Pulse Rate 70 Respiratory 18 18 Rate Blood Pressure 153/67 (mmHg) O2 Sat by Pulse 96 Oximetry Oxygen Devices in Use Now: None Appearance: Elderly female lying in bed, NAD Eyes: No Scleral Icterus Ears/Nose/Mouth/Throat: Mucous Membranes Moist Respiratory: Symmetrical Chest Expansion and Respiratory Effort, Clear to Auscultation - anteriorly Cardiovascular: NL Sounds; No Murmurs; No JVD, RRR, No Edema Abdominal: NL Sounds; No Tenderness; No Distention Extremities: No Clubbing, Cyanosis Skin: No Nodules or Sclerosis Neurological: - - pleasantly confused Result Diagrams: 03/22/18 02:05 03/22/18 02:05 Microbiology and Other Data: Microbiology 03/24/18 01:30 Nasal Screen MRSA (PCR) - Final Nasal Mrsa Not Detected Assess/Plan/Problems-Billing Assessment: - Patient Problems (1) Rib fracture Current Visit: Yes Status: Acute Code(s): S22.39XA - FRACTURE OF ONE RIB, UNSP SIDE, INIT FOR CLOS FX SNOMED Code(s): 68962954 Comment: Continue pain control with tylenol and add prn flexeril for spasms. Will need STR on d/c. Await rehab bed offer. (2) HTN (hypertension) Current Visit: Yes Status: Acute Code(s): I10 - ESSENTIAL (PRIMARY) HYPERTENSION SNOMED Code(s): 15149594 Comment: BP is under fair control on the reduced dose of losartan. Continue diltiazem at home dose. Monitor BP. (3) Chronic GERD Current Visit: Yes Status: Acute Code(s): K21.9 - GASTRO-ESOPHAGEAL REFLUX DISEASE WITHOUT ESOPHAGITIS SNOMED Code(s): 400461708 Comment: Continue omeprazole. (4) Hyperlipidemia Current Visit: Yes Status: Acute Code(s): E78.5 - HYPERLIPIDEMIA, UNSPECIFIED SNOMED Code(s): 37812899 Comment: Continue statin. (5) DVT prophylaxis Current Visit: Yes Status: Acute Code(s): UDT2671 - SNOMED Code(s): 358971167 Comment: SQ heparin (6) DNR (do not resuscitate) Current Visit: Yes Status: Acute
[2018-03-25] MEDS: Atorvastatin* 20 MG TAB PO SCH (20:46)
[2018-03-25] MEDS: Gabapentin CAP(*) 300 MG PO SCH (20:47)
[2018-03-25] MEDS: HYDROcodone/ACETAMIN 5-325 MG* 1 TAB PO PRN (20:50)
[2018-03-26] MEDS: NS 0.9% 1000 ML* 1,000 ML IV SCH (03:07)
[2018-03-26] MEDS: HYDROcodone/ACETAMIN 5-325 MG* 1 TAB PO PRN (04:46)
[2018-03-26] MEDS: Heparin VIAL(*) 5000 UNITS/ML VIAL (FIVE THOUSAND) SUBCUT SCH ×2 (04:47→12:43)
[2018-03-26 07:14] LABS: EGFR Non-African American 82.2 (>60)
[2018-03-26 07:39] VITALS: BP 153/67
[2018-03-26] MEDS: Omeprazole CAP* 20 MG PO SCH (09:06)
[2018-03-26] MEDS: DULoxetine DR CAP* 30 MG CAP.DR PO SCH (09:07)
[2018-03-26] MEDS: Diltiazem CD CAP* 120 MG PO SCH (09:07)
[2018-03-26] MEDS: Aspirin 81 mg CHEW TAB* 81 MG TAB.CHEW PO SCH (09:07)
[2018-03-26] MEDS: Multivitamins/Minerals TAB PO SCH (09:09)
[2018-03-26] MEDS: Acetaminophen TAB* 325 MG PO SCH ×2 (09:09→12:41)
[2018-03-26] MEDS: Losartan TAB* 25 MG PO SCH (09:09)
--- NOTE | 2018-03-26 11:54 | PN ---
Progress Note - Progress Note Date of Service: 03/26/18 Note: Time spent on discharge 40 minutes, including exam o fpatient, discussion with patient, aide, nurse, CM, review of EMR and ISTOP and preparation of discharge documents.
--- NOTE | 2018-03-26 11:56 | PN ---
"Progress Note - Progress Note Date of Service: 03/26/18 Note: This report was requested by: Atul Hernandez | Reference #: [id number] Others' Prescriptions Patient Name: Fariba Méndez Date: 1930 Address: [address] [place] [address] Sex: Female Rx Written Rx Dispensed Drug Quantity Days Supply Prescriber Name 02/02/2018 02/08/2018 alprazolam 0.5 mg tablet 60 30 Hawk Schwartz 02/02/2018 02/08/2018 tramadol hcl 50 mg tablet 60 30 Hawk Schwartz Bridger 11/22/2017 11/23/2017 alprazolam 0.5 mg tablet 60 30 Renato Solomon MD 11/22/2017 11/23/2017 tramadol hcl 50 mg tablet 60 30 Renato Solomon MD Patient Name: Fariba Méndez Date: 1930 Address: [address] [place] [address] Sex: Female Rx Written Rx Dispensed Drug Quantity Days Supply Prescriber Name 08/04/2017 08/10/2017 tramadol hcl 50 mg tablet 60 30 Renato Solomon MD 08/04/2017 08/10/2017 alprazolam 0.5 mg tablet 60 30 Renato Solomon MD 05/16/2017 05/19/2017 tramadol hcl 50 mg tablet 60 30 Renato Solomon MD 04/13/2017 04/13/2017 tramadol hcl 50 mg tablet 60 30 Renato Solomon MD"
--- NOTE | 2018-03-26 12:43 | TRS ---
CC: Dr. Solomon * TRANSFER SUMMARY: DATE OF ADMISSION: DATE OF TRANSFER: 03/26/18 HISTORY: This 87-year-old woman presented after a fall. She had a right flank pain. She was found to have rib fractures. There were some old rib fractures as well as some new rib fractures. There was T12 compression fracture; this did not require any surgical or other procedural intervention. There was no retropulsion noted on lumbar spine CT. She was evaluated by Dr. Woody, her neurosurgeon. She has right-sided hydronephrosis which is likely chronic. She did well in hospital but still was having trouble with ambulation. She has had a little pain in her shoulder on the day of discharge probably from using the walker a lot but she was able to get around some with the walker. FINAL DIAGNOSES: 1. Rib fractures. 2. Hypertension. 3. Hyperlipidemia. 4. Chronic gastroesophageal reflux disease. DISCHARGE MEDICATIONS: 1. Hydrocodone/acetaminophen 5/325 one every 6 hours p.r.n. 2. Multivitamin with iron daily. 3. Aspirin 81 mg daily. 4. Simvastatin 40 mg h.s. 5. Acetaminophen 650 mg every 4 hours p.r.n. 6. Omeprazole 40 mg b.i.d. 7. Losartan 100 mg daily. 8. Gabapentin 300 mg h.s. 9. Diltiazem 120 mg b.i.d. 10. Alendronate 70 mg weekly. 11. Alprazolam 0.5 mg b.i.d. p.r.n. 12. Duloxetine 60 mg daily. CONDITION ON DISCHARGE: Stable. DISPOSITION: Transferred to [facility]. [id number]/[facility] #: [id number] [facility]
== END 2018-03-26 13:45 | DRG 184 ==
LOC: ED 00:31 → MED 09:02
PROVIDERS: ADMIT Hospitalist; ATTEND Internal Medicine
PROC: 02HV33Z Insertion of Infusion Device into Superior Vena Cava, Percutaneous Approach (ICD-10-PCS; principal; 2018-03-22)
DX: S22.41XA Multiple fractures of ribs, right side, initial encounter for closed fracture (principal); N13.30 Unspecified hydronephrosis; M48.54XA Collapsed vertebra, not elsewhere classified, thoracic region, initial encounter for fracture; I10 Essential (primary) hypertension; E78.5 Hyperlipidemia, unspecified; M81.0 Age-related osteoporosis without current pathological fracture; I25.10 Atherosclerotic heart disease of native coronary artery without angina pectoris; K21.9 Gastro-esophageal reflux disease without esophagitis; M19.90 Unspecified osteoarthritis, unspecified site; Z96.643 Presence of artificial hip joint, bilateral; Z66 Do not resuscitate; S09.90XA Unspecified injury of head, initial encounter; M25.519 Pain in unspecified shoulder; M51.34 Other intervertebral disc degeneration, thoracic region; W18.39XA Other fall on same level, initial encounter; Y92.9 Unspecified place or not applicable; Z98.51 Tubal ligation status; Z87.442 Personal history of urinary calculi; Z90.710 Acquired absence of both cervix and uterus; Z98.42 Cataract extraction status, left eye; Z98.41 Cataract extraction status, right eye; Z90.49 Acquired absence of other specified parts of digestive tract; Z88.1 Allergy status to other antibiotic agents; Z91.048 Other nonmedicinal substance allergy status; Z82.49 Family history of ischemic heart disease and other diseases of the circulatory system; Z72.89 Other problems related to lifestyle; Z79.82 Long term (current) use of aspirin; R60.0 Localized edema; F32.9 Major depressive disorder, single episode, unspecified; M48.00 Spinal stenosis, site unspecified
CPT/HCPCS: 36415; 70450; 71250; 72125; 72131; 72148; 74176; 76775; 80048; 80053; 81003; 82150; 82550; 83605; 85025; 85610; 85730; 87641; 93005; 99284; A9270-GY; C1751; G8978-GP-CK; G8979-GP-CJ; J1644

== ENCOUNTER 2018-04-14 19:18 | Emergency (ER) | payer MEDICARE ==
--- NOTE | 2018-04-14 19:54 | ED ---
Abdominal Pain/Female - HPI Summary HPI Summary: 87 year old F BIB EMS to [facility] with a chief complaint of RLQ abdominal pain that radiates to her right-sided back since "a while now," but worse since today. The patient rates the pain 6/10 in severity. Symptoms aggravated by talking and movement. Symptoms alleviated by nothing. Patient additionally complains of right-sided rib pain. Patient recently discharged from rehab for rib fractures and said the pain feels similar to pain from her rib fracture. She was not given pain medication. 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 - History of Current Complaint Chief Complaint: EDAbdPain Stated Complaint: ABD PAIN Time Seen by Provider: 04/14/18 19:42 Hx Obtained From: Patient Hx Last Menstrual Period: n/a Onset/Duration: Gradual Onset, Lasting Weeks - "a while now", Still Present, Worse Since - today Severity Initially: Mild Severity Currently: Moderate Pain Intensity: 6 Pain Scale Used: 0-10 Numeric Location: Discrete At: RLQ Radiates: Yes Radiates to: Back - right side Aggravating Factor(s): Movement, Other: - Talking Alleviating Factor(s): Nothing Associated Signs and Symptoms: Positive: Other: - right-sided rib pain Allergies/Adverse Reactions: Allergies Allergy/AdvReac Type Severity Reaction Status Date / Time Adhesive Tape [Plastic Tape] Allergy See Comment Verified 12/24/13 16:52 levofloxacin Allergy See Comment Verified 03/22/18 04:53 Home Medications: Home Medications Alendronate Sodium 70 mg PO WEEKLY 04/14/18 [History Confirmed 04/14/18] Meloxicam 7.5 mg PO BID 04/14/18 [History Confirmed 04/14/18] PMH/Surg Hx/FS Hx/Imm Hx Previously Healthy: No Cardiovascular History: Reports: Hx Hypertension Denies: Hx Pacemaker/ICD Musculoskeletal History: Reports: Hx of Fracture(s) - ribs Sensory History: Reports: Hx Contacts or Glasses Denies: Hx Legally Blind, Hx Deafness, Hx Hearing Aid Opthamlomology History: Reports: Hx Contacts or Glasses Denies: Hx Legally Blind Psychiatric History: Denies: Hx Panic Disorder - Surgical History Surgery Procedure, Year, and Place: gallbladder, B/L hip, appy, cholecystectomy , tubal ligatiion, hysterectomy Infectious Disease History: No Infectious Disease History: Denies: Traveled Outside the [place] in Last 30 Days - Family History Family History: Reviewed and Noncontributory - Social History Alcohol Use: None Substance Use Type: Reports: None, Prescribed Smoking Status (MU): Unknown if Ever Smoked Review of Systems Positive: Abdominal Pain - RLQ Positive: Other - right-sided rib pain All Other Systems Reviewed And Are Negative: Yes Physical Exam - Summary Physical Exam Summary: GENERAL: Patient is a well-developed and nourished F who is lying comfortable in the stretcher. Patient is not in any acute respiratory distress. HEAD AND FACE: Normocephalic EYES: PERRLA, EOMI x 2. EARS: Hearing grossly intact. MOUTH: Oropharynx within normal limits. NECK: Supple, trachea is midline, no adenopathy, no JVD, no carotid bruit. CHEST: Symmetric, no tenderness at palpation LUNGS: Clear to auscultation bilaterally. No wheezing or crackles. CVS: Regular rate and rhythm, S1 and S2 present, no murmurs or gallops appreciated. ABDOMEN: Tenderness to palpation to the right side of the abdomen. No rebound guarding. EXTREMITIES: Full ROM in all major joints, no edema, no cyanosis or clubbing. NEURO: Alert and oriented x 3. No acute neurological deficits. Speech is normal and follows commands. SKIN: Dry and warm Triage Information Reviewed: Yes Vital Signs On Initial Exam: Initial Vitals Temp Pulse Resp BP Pulse Ox 98.6 F 62 20 150/71 94 04/14/18 19:23 04/14/18 19:23 04/14/18 19:23 04/14/18 19:23 04/14/18 19:23 Vital Signs Reviewed: Yes Diagnostics - Vital Signs Vital Signs Temp Pulse Resp BP Pulse Ox 04/14/18 19:23 98.6 F 62 20 150/71 94 - Laboratory Result Diagrams: 04/14/18 20:11 04/14/18 20:11 Lab Statement: Any lab studies that have been ordered have been reviewed, and results considered in the medical decision making process. - CT Abd/Pel CT Interpretation Completed By: Radiologist - Moderate right sided hydronephrosis with distention of the extrarenal pelvis and moderate dilatation of the right ureter. No calcified stone within the right ureter or within the bladder. Small stone located in the collecting system of the inferior pole of the right kidney which is nonobstructing. These were noted on the prior CT study of 03/22/2018 and are unchanged. Suggest further evaluation of the right kidney to assess for that possibility of a distal ureteral obstruction. However a mass is noted evident. The patient may have reflux and cannot exclude the possibility of a urinary tract infection. ED physician has reviewed this report. Abdominal Pain Fem Course/Dx - Course Course Of Treatment: 87 year old F BIB EMS to [facility] with a chief complaint of RLQ abdominal pain that radiates to her right-sided back since "a while now," but worse since today. Workup is remarkable for sodium 130. UA shows slight evidence of UTI even though sample was contaminated. CT Abd/Pel shows right- sided hydronephrosis, which is not new compared to previous CT Abd/Pel. Patient was given a dose of Rocephin IM and subsequently discharged home on Klefex. I discussed results with patient and the patient reports feeling better. The patient is hemodynamically stable and safe for discharge. Strict return precautions given and the patient will otherwise follow up with follow up with primary care provider and urology. - Diagnoses Provider Diagnoses: Hydronephrosis, UTI (urinary tract infection) Discharge - Sign-Out/Discharge Documenting (check all that apply): Patient Departure - Discharge - Discharge Plan Condition: Stable Disposition: HOME Prescriptions: Cephalexin CAP* [Keflex CAP*] 500 mg PO QID 7 Days #28 cap Patient Education Materials: Urinary Tract Infection in Women (ED), Hydronephrosis (ED) Referrals: Renato Solomon MD [Primary Care Provider] - 3 Days Eduardo Martinez MD [Medical Doctor] - 3 Days Additional Instructions: Follow up with your primary care physician, Dr. Solomon, in 1-3 days. Also, follow up with Dr. Martinez, urology, in 1-3 days. RETURN TO THE EMERGENCY DEPARTMENT FOR CHANGING OR WORSENING SYMPTOMS. - Billing Disposition and Condition Condition: STABLE Disposition: Home - Attestation Statements Document Initiated by Scribe: Yes Documenting Scribe: Maddison Lam Provider For Whom Scribe is Documenting (Include Credential): Cathie Silveira MD Scribe Attestation: Maddison Reyna, scribed for Cathie Silveira MD on 04/15/18 at 2154. Scribe Documentation Reviewed: Yes Provider Attestation: The documentation as recorded by the scribeMaddison accurately reflects the service I personally performed and the decisions made by me, Cathie Silveira MD
[2018-04-14] MEDS ORDERED: NS 0.9% 1000 ML* 1,000 ML IV ONE (20:01)
[2018-04-14] MEDS ORDERED: Ondansetron INJ* 2 MG/ML VIAL IV ONE (20:03)
[2018-04-14] MEDS ORDERED: Ketorolac INJ* 30 MG/ML 1 ML VIAL IV PUSH ONE (20:03)
[2018-04-14 20:22] LABS: ABS Basophils 0 10^3/ul (0-0.2); ABS Eosinophils 0 10^3/ul (0-0.6); ABS Lymphocytes 2.5 10^3/ul (1.0-4.8); ABS Monocytes 0.5 10^3/ul (0-0.8); ABS Neutrophils 3.7 10^3/ul (1.5-7.7); ABS Nucleated RBC 0 10^3/ul; Eosinophil % 0.6 % (0-6); Hematocrit 38 % (35-47); Hemoglobin 12.8 g/dl (12.0-16.0); Lymphocyte % 36.8 % (25-47); Mean Corpuscular HGB Conc 34 g/dl (31-36); Mean Corpuscular Hemoglobin 31 pg (27-31); Mean Corpuscular Volume 90 fL (80-97); Nucleated Red Blood Cells % 0; Platelet Count 270 10^3/ul (150-450); Red Blood Count 4.14 10^6/ul (4.00-5.40); Red Cell Distribution Width 14 % (10.5-15); White Blood Count 6.8 10^3/ul (3.5-10.8)
[2018-04-14 20:31] LABS: INR 0.92 (0.77-1.02)
[2018-04-14 20:44] LABS: EGFR Non-African American 65.3 (>60)
[2018-04-14] MEDS ORDERED: Iohexol 300* (CONTRAST) 10 ML SDV IV ONE (22:10)
--- NOTE | 2018-04-15 00:34 | RAD ---
EXAM: CT Abdomen and Pelvis Without Intravenous Contrast EXAM DATE/TIME: 04/14/2018 11:46 PM CLINICAL HISTORY: 87 years old, female; Pain; Abdominal pain; Flank; Right; Additional info: Right sided abdominal pain TECHNIQUE: Axial computed tomography images of the abdomen and pelvis without intravenous contrast. All CT scans at this facility use at least one of these dose optimization techniques: automated exposure control; mA and/or kV adjustment per patient size (includes targeted exams where dose is matched to clinical indication); or iterative reconstruction. Coronal and sagittal reformatted images were created and reviewed. COMPARISON: C/A/P WO CT CHEST/ABD/PEL W/O 03/22/2018 5:25 AM FINDINGS: Lower thorax: Linear opacities located in the lung bases which may represent areas of atelectasis and/or scarring. Small hiatal hernia. ABDOMEN: Liver: The unenhanced liver is of normal size and appearance. No focal lesion. Gallbladder and bile ducts: Cholecystectomy. No pathologic dilatation common bile duct. Pancreas: No focal lesion involving the pancreas. No dilatation of the pancreatic duct. Spleen: The spleen is of normal size and appearance. Adrenals: Normal. No mass. Kidneys and ureters: Moderate distention of the left pyelocalyceal system with distention of the renal pelvis and right ureter. No calcification within the lumen of the ureter. These findings were noted on the prior CT study of 03/22/2018 and is unchanged. Right renal cortical cyst measuring 2.3 cm in diameter. Small punctate calcified stone in a right inferior pole calyx which is non-obstructing. The left kidney is of normal size and appearance. Stomach and bowel: Posterior gastric diverticulum. No bowel obstruction. Diverticular changes involving the colon. No acute diverticulitis. No bowel wall thickening. Appendix: No evidence of appendicitis. PELVIS: Bladder: Unremarkable as visualized. Reproductive: Unremarkable as visualized. ABDOMEN and PELVIS: Intraperitoneal space: Normal. No free air. No significant fluid collection. Bones/joints: Bilateral hip arthroplasties which distorts the anatomy of the lower pelvis. Compression fracture of T12 with loss of anterior height by about 60-70%. This was noted on the prior CT exam. Multilevel degenerative lumbar disc disease. Grade 1 anterolisthesis of L4 on to L5. Soft tissues: Unremarkable. Vasculature: Calcification of the wall of the abdominal aorta and iliac arteries. No aneurysmal dilatation. Lymph nodes: Normal. No enlarged lymph nodes. IMPRESSION: Moderate right sided hydronephrosis with distention of the extrarenal pelvis and moderate dilatation of the right ureter. No calcified stone within the right ureter or within the bladder. Small stone located in the collecting system of the inferior pole of the right kidney which is nonobstructing. These were noted on the prior CT study of 03/22/2018 and are unchanged. Suggest further evaluation of the right kidney to assess for that possibility of a distal ureteral obstruction. However a mass is noted evident. The patient may have reflux and cannot exclude the possibility of a urinary tract infection. To contact [facility] with a general question: Operations Center - [phone] For direct physician to physician contact: Physician Hotline - [phone] [facility] ([facility] Facility ID #[id number])
[2018-04-15 01:14] LABS: Urine Appearance Cloudy; Urine Blood Negative (Negative); Urine Color Yellow; Urine Ketones Negative (Negative); Urine Protein 1+(30 mg/dL) (Negative); Urine Red Blood Cell Absent (Absent); Urine Specific Gravity 1.017 (1.010-1.030); Urine Urobilinogen Negative (Negative); Urine White Blood Cell 3+(>20/hpf) (Absent)
[2018-04-15] MEDS ORDERED: cefTRIAXone VIAL(*) 1,000 MG VIAL IM ONE (02:15)
[2018-04-15] MEDS ORDERED: Lidocaine 1%* 5 ML VIAL ONE (02:23)
[2018-04-15 02:36] VITALS: BP 160/74
== END 2018-04-15 02:25 | disposition home or self-care (01) ==
LOC: ED 19:18
DX: N39.0 Urinary tract infection, site not specified (principal); N13.30 Unspecified hydronephrosis; R10.31 Right lower quadrant pain; I10 Essential (primary) hypertension
CPT/HCPCS: 36415; 74176; 80053; 81003; 81015; 83605; 83690; 83735; 85025; 85610; 85730; 86140; 87086; 96372; 96374; 96375; 99284; J0696; J1885; J2405

== ENCOUNTER 2018-05-19 21:53 | Inpatient (IN) | payer MEDICARE ==
[2018-05-19] MEDS ORDERED: Ondansetron INJ* 2 MG/ML VIAL IV ONE (22:22)
--- NOTE | 2018-05-19 22:29 | ED ---
Dizziness - HPI Summary HPI Summary: 87-year-old female presents with nausea for the past couple days. She states she has been dizzy all week. She states that dizziness occurs mostly when she stands up. States she has fallen today as she stood up got dizzy and struck her head. she is not on blood thinners. She was more incontinent than normal this morning. She denies any bowel pain. No chest pain or shortness breath. She denies any headache. No fevers. no diarrhea. She was treated for UTI couple weeks ago. She was seen here couple days ago and diagnosed with lumbar fracture. She denies any pain in her back. No saddle anesthesia. She denies any vomiting. She lives alone. - History Of Current Complaint Chief Complaint: EDGeneral Stated Complaint: GENERAL ILLNESS Time Seen by Provider: 05/19/18 22:12 - Allergies/Home Medications Allergies/Adverse Reactions: Allergies Allergy/AdvReac Type Severity Reaction Status Date / Time Adhesive Tape [Plastic Tape] Allergy See Comment Verified 05/19/18 22:05 levofloxacin Allergy See Comment Verified 05/19/18 22:05 PMH/Surg Hx/FS Hx/Imm Hx Endocrine/Hematology History: Denies: Hx Diabetes Cardiovascular History: Reports: Hx Hypertension Denies: Hx Pacemaker/ICD History: Denies: Hx Renal Disease Sensory History: Reports: Hx Contacts or Glasses Denies: Hx Legally Blind, Hx Deafness, Hx Hearing Aid Opthamlomology History: Reports: Hx Contacts or Glasses Denies: Hx Legally Blind Psychiatric History: Denies: Hx Panic Disorder - Cancer History Cancer Type, Location and Year: None reported Hx Hematologic Symptoms: No Hx Chemotherapy: No Hx Radiation Therapy: No Hx Palliative Cancer Treatment: No - Surgical History Surgery Procedure, Year, and Place: gallbladder, B/L hip, appy, cholecystectomy , tubal ligatiion, hysterectomy - Immunization History Date of Tetanus Vaccine: utd Date of Influenza Vaccine: fall 2017 Infectious Disease History: No Infectious Disease History: Denies: Traveled Outside the [place] in Last 30 Days - Family History Family History: Reviewed and Noncontributory - Social History Alcohol Use: None Substance Use Type: Reports: None Smoking Status (MU): Never Smoked Tobacco Review of Systems Negative: Fever Negative: Chest Pain Negative: Shortness Of Breath Positive: Nausea. Negative: Abdominal Pain, Vomiting, Diarrhea Neurological: Other - dizziness All Other Systems Reviewed And Are Negative: Yes Physical Exam Triage Information Reviewed: Yes Vital Signs On Initial Exam: Initial Vitals Resp 18 05/19/18 22:01 Vital Signs Reviewed: Yes Appearance: Positive: Well-Appearing Skin: Positive: Warm, Dry Head/Face: Positive: Normal Head/Face Inspection Eyes: Positive: Normal, Conjunctiva Clear ENT: Positive: Pharynx normal Respiratory/Lung Sounds: Positive: Clear to Auscultation, Breath Sounds Present Cardiovascular: Positive: Normal, RRR Abdomen Description: Positive: Nontender, Soft Bowel Sounds: Positive: Present Musculoskeletal: Positive: Normal Neurological: Positive: Sensory/Motor Intact, Alert, Oriented to Person Place, Time, CN Intact II-III Psychiatric: Positive: Normal Diagnostics - Vital Signs Vital Signs Temp Pulse Resp BP Pulse Ox 05/19/18 22:03 97.9 F 79 17 141/89 94 05/19/18 22:02 78 22 141/89 94 05/19/18 22:01 18 - Laboratory Result Diagrams: 05/19/18 22:28 05/19/18 22:29 Lab Statement: Any lab studies that have been ordered have been reviewed, and results considered in the medical decision making process. - CT brain CT Interpretation Completed By: Radiologist Summary of CT Findings: IMPRESSION: 1. No acute intracranial abnormality. 2. Age-related atrophy and moderate chronic small vessel ischemic disease. - EKG No standard instances Cardiac Rate: NL EKG Rhythm: Sinus Rhythm EKG Comparison: No Significant Change Summary of EKG Findings: sinus rhythm, prolonged QT Re-Evaluation - Re-Evaluation First Eval Re-Evaluation Time: 23:54 Change: Improved Comment: no longer nauseous Second Eval Re-Evaluation Time: 00:25 Change: Improved Comment: ambulated without any dizziness with steady gait with walker, orthostatic vitals normal Third Eval Re-Evaluation Time: 00:56 Comment: further discussion with patient does not have access to food. Dizzy Course/Dx - Course Course Of Treatment: 87-year-old female presents with nausea for the past couple days. She states she has been dizzy all week. She states that dizziness occurs mostly when she stands up. States she has fallen today as she stood up got dizzy and struck her head. she is not on blood thinners. She was more incontinent than normal this morning. She denies any bowel pain. No chest pain or shortness breath. She denies any headache. No fevers. She was treated for UTI couple weeks ago. She was seen here couple days ago and diagnosed with lumbar fracture. She denies any pain in her back. No saddle anesthesia. She denies any vomiting. She lives alone. on exam normal neuro exam. states is not dizzy now but is nauseaous. nontender abd. ekg shows sinus rhythm prolonged QT which is similiar to previous. does not have orthostatic vitals. urine shows uti. attempted to give rocephin but unable to due to issue with solution. will give augmentin. 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 dr pitts agrees to admit. - Diagnoses Differential Diagnosis/HQI/PQRI: Benign Paroxysmal Positional Vertigo, Dysrhythmia, Hypovolemia, Metabolic Abnormality Provider Diagnoses: Nausea, Dizziness, UTI (urinary tract infection), Frequent falls, Prolonged QT interval Discharge - Sign-Out/Discharge Documenting (check all that apply): Patient Departure - Discharge Plan Condition: Good Disposition: ADMITTED TO [facility] - Billing Disposition and Condition Condition: GOOD Disposition: Admitted to [facility]
[2018-05-19 22:48] LABS: ABS Basophils 0 10^3/ul (0-0.2); ABS Eosinophils 0.1 10^3/ul (0-0.6); ABS Lymphocytes 2.3 10^3/ul (1.0-4.8); ABS Monocytes 0.4 10^3/ul (0-0.8); ABS Neutrophils 3.6 10^3/ul (1.5-7.7); ABS Nucleated RBC 0 10^3/ul; Eosinophil % 1.2 % (0-6); Hematocrit 39 % (35-47); Lymphocyte % 36.1 % (25-47); Mean Corpuscular HGB Conc 34 g/dl (31-36); Mean Corpuscular Hemoglobin 31 pg (27-31); Mean Corpuscular Volume 92 fL (80-97); Nucleated Red Blood Cells % 0; Platelet Count 257 10^3/ul (150-450); Red Cell Distribution Width 15 % (10.5-15); White Blood Count 6.5 10^3/ul (3.5-10.8)
[2018-05-19] MEDS ORDERED: Ondansetron ODT TAB* 4 MG PO ONE (23:07)
[2018-05-19 23:13] LABS: EGFR Non-African American 79.5 (>60)
[2018-05-19] MEDS ORDERED: Magnesium Chloride EC TAB* 64 MG PO ONE (23:17)
[2018-05-19] MEDS ORDERED: NS 0.9% 1000 ML* 1,000 ML IV ONE (23:18)
[2018-05-19 23:57] LABS: Urine Appearance Clear; Urine Blood Negative (Negative); Urine Color Straw; Urine Ketones 1+ (Negative); Urine Protein Negative (Negative); Urine Red Blood Cell Absent (Absent); Urine Specific Gravity 1.008 (1.010-1.030); Urine Urobilinogen Negative (Negative); Urine White Blood Cell 3+(>20/hpf) (Absent)
[2018-05-20] MEDS ORDERED: Acetaminophen TAB* 325 MG PO ONE (00:07)
[2018-05-20] MEDS ORDERED: Lidocaine PATCH 5%* 1 PATCH TRANSDERM ONE (00:07)
[2018-05-20] MEDS ORDERED: cefTRIAXone VIAL(*) 1,000 MG VIAL IM ONE (00:10)
[2018-05-20] MEDS ORDERED: Lidocaine 1% INJ* 10 MG/ML 30 ML SDV INJ ONE (00:11)
[2018-05-20] MEDS ORDERED: Lidocaine 1%* 5 ML VIAL ONE (00:45)
[2018-05-20] MEDS ORDERED: cefTRIAXone VIAL(*) 1,000 MG VIAL ONE (00:45)
[2018-05-20] MEDS ORDERED: cefTRIAXone(*) 1 GM ADVAN/BAG IV ONE (01:00)
[2018-05-20] MEDS ORDERED: cefTRIAXone(*) 1 GM in NS 0.9% 50 ML* 50 ML IVPB ONE (01:00)
[2018-05-20] MEDS ORDERED: Amoxicillin/Clavulanate TAB* 500 MG PO ONE (01:07)
[2018-05-20] MEDS ORDERED: ALENDRONATE 70 MG PO SCH (02:00)
[2018-05-20] MEDS ORDERED: Magnesium Sulfate 2 GM IV* 2 GM/50 ML BAG IVPB ONE (02:10)
[2018-05-20] MEDS: NS 0.9% 1000 ML* 1,000 ML IV SCH (04:01)
[2018-05-20 05:12] LABS: ABS Basophils 0 10^3/ul (0-0.2); ABS Eosinophils 0.1 10^3/ul (0-0.6); ABS Lymphocytes 2.1 10^3/ul (1.0-4.8); ABS Monocytes 0.5 10^3/ul (0-0.8); ABS Neutrophils 3.5 10^3/ul (1.5-7.7); ABS Nucleated RBC 0 10^3/ul; Eosinophil % 1.9 % (0-6); Hematocrit 39 % (35-47); Hemoglobin 12.8 g/dl (12.0-16.0); Lymphocyte % 33.6 % (25-47); Mean Corpuscular HGB Conc 33 g/dl (31-36); Mean Corpuscular Hemoglobin 31 pg (27-31); Mean Corpuscular Volume 92 fL (80-97); Mean Platelet Volume 6.7 fL (7.4-10.4); Nucleated Red Blood Cells % 0; Platelet Count 246 10^3/ul (150-450); Red Blood Count 4.21 10^6/ul (4.00-5.40); Red Cell Distribution Width 15 % (10.5-15); White Blood Count 6.3 10^3/ul (3.5-10.8)
[2018-05-20 05:33] LABS: EGFR Non-African American 83.7 (>60)
--- NOTE | 2018-05-20 05:46 | ADMNOTE ---
Subjective Date of Service: 05/20/18 Interval History: code status dnr this is admission h/p hpi this is a 87 yr old wf lives home alone with hx of recurrent falls came in to er after second fall within two days. pt came into two days ago after fall but d /cd with a dx of new L2/L3 fracture. pt stated that she was sitting down in a chair but slided down to the floor---> she was able to get up on her own afterwards. she has her door open all the time and saw a maintainace francisco walking by and yelled out for help. she did have some lightheadness associated with this fall. as per nursing staff from er, she does not have any food left at home either. pt stated that she lives home alone but her kids rarely visit her. pt is aao times three and wants to be dnf molst in chart. intial ekg showed qtc 592. pt has been on mulitple different meds that could cause prolonged qtc such as pain meds/antidepressants she has been on cardizem 120 mg bid but denied any hx of a fib or flutter phx htn hyperlipidemia on zocor 40 mg chronic unsteady gait recurrent falls new L2/L3 fx after fall two days ago osteoporosis pshx s/p cholycystectomy s/p tonsilectomy social hx no cig no etoh lives home alone no family will visit her walks with a walker fhx dm Review of Systems - Measurements Intake and Output: Intake and Output Last 24 Hours 05/17/18 05/18/18 05/19/18 05/20/18 06:59 06:59 06:59 06:59 Weight 168 lb 3.2 oz pertinent as per hpi Objective Active Medications: Acetaminophen (Tylenol Tab*) 650 mg PO Q4H PRN PRN Reason: PAIN Alendronate Sodium (Fosamax (Nf)) 70 mg PO WEEKLY [facility]; Protocol Amoxicillin/Clavulanate Potassium (Augmentin Tab*) 875 mg PO BID [facility] Aspirin (Aspirin 81 Mg Chew Tab*) 81 mg PO DAILY [facility] Hydralazine HCl (Apresoline Tab*) 10 mg PO BID [facility] Sodium Chloride (Ns 0.9% 1000 Ml*) 1,000 mls @ 75 mls/hr IV PER RATE [facility] Last Admin: 05/20/18 04:01 Dose: 75 mls/hr Lidocaine (Lidoderm 5% Patch*) 1 patch TRANSDERM DAILY [facility] Losartan Potassium (Cozaar Tab*) 100 mg PO DAILY [facility] Meloxicam (Mobic(Nf)) 7.5 mg PO BID [facility] Multivitamins/Minerals (Theragran/Minerals Tab*) 1 tab PO DAILY [facility] Omeprazole (Prilosec Cap*) 20 mg PO BID [facility] Pharmacy Profile Note (Lidocaine Patch Remove*) 1 note PATCH OFF 1200 ONE Stop: 05/20/18 12:01 Pravastatin Sodium (Pravachol (Nf)) 80 mg PO BEDTIME [facility]; Protocol Vital Signs - 8 hr 05/19/18 05/19/18 05/19/18 22:01 22:02 22:03 Temperature 97.9 F Pulse Rate 78 79 Respiratory 18 22 17 Rate Blood Pressure 141/89 141/89 (mmHg) O2 Sat by Pulse 94 94 Oximetry 05/19/18 05/19/18 05/19/18 22:32 23:00 23:02 Temperature Pulse Rate 77 78 75 Respiratory 24 26 24 Rate Blood Pressure 166/82 174/91 (mmHg) O2 Sat by Pulse 93 92 93 Oximetry 05/19/18 05/19/18 05/19/18 23:32 23:56 23:57 Temperature Pulse Rate 79 85 77 Respiratory 20 25 Rate Blood Pressure 159/119 157/88 164/82 (mmHg) O2 Sat by Pulse 95 96 Oximetry 05/19/18 05/20/18 05/20/18 23:59 00:01 00:09 Temperature Pulse Rate 82 Respiratory 21 17 Rate Blood Pressure 168/91 157/88 172/91 (mmHg) O2 Sat by Pulse 91 Oximetry 05/20/18 05/20/18 05/20/18 00:33 01:00 01:02 Temperature Pulse Rate 84 76 77 Respiratory 19 22 25 Rate Blood Pressure 173/107 157/81 (mmHg) O2 Sat by Pulse 92 88 87 Oximetry 05/20/18 05/20/18 05/20/18 01:32 02:00 02:02 Temperature Pulse Rate 77 80 77 Respiratory 22 29 26 Rate Blood Pressure 149/77 166/76 (mmHg) O2 Sat by Pulse 88 90 89 Oximetry 05/20/18 05/20/18 05/20/18 02:32 02:51 04:15 Temperature 96.4 F 98.2 F Pulse Rate 83 73 76 Respiratory 13 18 18 Rate Blood Pressure 153/79 153/79 157/97 (mmHg) O2 Sat by Pulse 94 93 98 Oximetry Oxygen Devices in Use Now: None Appearance: nad Eyes: No Scleral Icterus, PERRLA Ears/Nose/Mouth/Throat: NL Teeth, Lips, Gums, Clear Oropharnyx, Mucous Membranes Moist Neck: NL Appearance and Movements; NL JVP, Trachea Midline, No Thyroid Enlargement, Masses Respiratory: Symmetrical Chest Expansion and Respiratory Effort, Clear to Auscultation Cardiovascular: NL Sounds; No Murmurs; No JVD, RRR Abdominal: NL Sounds; No Tenderness; No Distention, No Hepatosplenomegaly Extremities: - - trace pedal edema able to raise ue and le against gravity Skin: No Rash or Ulcers Neurological: Alert and Oriented x 3, NL Sensation, NL Muscle Strength and Tone , - - cranial n 2-12 grossly intact Result Diagrams: 05/20/18 05:00 05/20/18 05:00 EKG Data: ns prolonged qtc 593 but no other acute st t change Assess/Plan/Problems-Billing Assessment: this is a 87 yr old wf with chronic unsteady gait here for fall second times in two days pt was found to have uti besides prolonged qtc - Patient Problems (1) Recurrent falls Current Visit: Yes Status: Acute Code(s): R29.6 - REPEATED FALLS SNOMED Code(s): 309668643 Comment: etiology to be investigated tele with sha ck orthostatic vital in am echo pt eval ck vit d level as well as b12 (2) HTN (hypertension) Current Visit: Yes Status: Acute Code(s): I10 - ESSENTIAL (PRIMARY) HYPERTENSION SNOMED Code(s): 56393361 Comment: pt has been on cardizem 120 bid along with max dose of arb cardizem was d/cd due to prolong qtc will continue arb but add on hydralazeine 10 mg bid for b/p problem (3) Prolonged QT interval Current Visit: Yes Status: Acute Code(s): R94.31 - ABNORMAL ELECTROCARDIOGRAM [ECG] [EKG] SNOMED Code(s): 093352048 Comment: pt has been on multiple different meds which can accidently activate c2q4 enxyme then indirectly prolong the qtc will d/c pain meds/antidepressive and cardiazem tele moniter echo in am ck lytes including mag/phos/ ionized calcium (4) Lightheadedness Current Visit: Yes Status: Acute Code(s): R42 - DIZZINESS AND GIDDINESS SNOMED Code(s): 391082650 (5) UTI (urinary tract infection) Current Visit: Yes Status: Acute Comment: started with augmentin (6) Lumbar vertebral fracture Current Visit: Yes Status: Acute Comment: due to her fall two days ago pt was witnessed able to walk with her walker with not much pain c/o moniter and will d/c her opioid for now tylenol prn for pain (7) Osteoporosis Current Visit: Yes Status: Acute Code(s): M81.0 - AGE-RELATED OSTEOPOROSIS W /O CURRENT PATHOLOGICAL FRACTURE SNOMED Code(s): 64406637 Comment: alendronate ck vit d level (8) Hypothyroid Current Visit: Yes Status: Acute Code(s): E03.9 - HYPOTHYROIDISM, UNSPECIFIED SNOMED Code(s): 82892680 Comment: intial tsh is elevated will repeat tsh and free t4 level consider synthroid 12.5 mcg daily if she is still hypothyroid (9) Lightheadedness Current Visit: Yes Status: Acute Code(s): R42 - DIZZINESS AND GIDDINESS SNOMED Code(s): 305073571 Comment: tele with sha echo in am ck orthostatic gentle ivf
[2018-05-20] MEDS ORDERED: Potassium Chlor TAB* 20 MEQ TAB.ER PO ONE (07:12)
[2018-05-20] MEDS ORDERED: KCL 20 MEQ/100 ML IVPREMIX* 20 MEQ/100 ML BAG IV ONE (07:12)
[2018-05-20] MEDS ORDERED: DULoxetine DR CAP* 30 MG CAP.DR PO SCH (09:00)
[2018-05-20] MEDS: Amoxicillin/Clavulanate TAB* 875 MG PO SCH ×2 (09:01→20:57)
[2018-05-20] MEDS: Losartan TAB* 25 MG PO SCH (09:01)
[2018-05-20] MEDS: Multivitamins/Minerals TAB PO SCH (09:02)
[2018-05-20] MEDS: Omeprazole CAP* 20 MG PO SCH ×2 (09:02→20:57)
[2018-05-20] MEDS: hydrALAZINE TAB* 10 MG PO SCH ×2 (09:02→20:57)
[2018-05-20] MEDS: Aspirin 81 mg CHEW TAB* 81 MG TAB.CHEW PO SCH (09:02)
[2018-05-20] MEDS: CMCS: Meloxicam(NF) 7.5 MG TAB PO SCH ×2 (09:03→20:56)
--- NOTE | 2018-05-20 10:29 | PN ---
Subjective Date of Service: 05/20/18 Interval History: Ms. Deras feels better today. She reports an overwhelming sense of fatigue and has had this for at least a couple weeks. She does remember her 2 recent falls, but is unable to tell me the exact mechanism of the fall. She states that one of the falls occurred when she was standing up from her chair and fell forward. She does not believe she lost consciousness. She only reports that she felt weak, but is unable to fully described the situation. She does feel as though rehab would be a good idea as she states she does not feel safe at home. She has been to rehab multiple times in the past and thinks that some visits have been more helpful than others. She denies back pain. Somewhat decreased appetite. Denies CP, SOB, N/V/D, dizziness. Of note, the patient did have 4 beats of asymptomatic VT while I was speaking with her this morning. Family History: Unchanged from Admission Social History: Unchanged from Admission Past Medical History: Unchanged from Admission Objective Active Medications: Acetaminophen (Tylenol Tab*) 650 mg PO Q4H PRN PAIN Alendronate Sodium (Fosamax (Nf)) 70 mg PO WEEKLY [facility]; Protocol Amoxicillin/Clavulanate Potassium (Augmentin Tab*) 875 mg PO BID [facility] Aspirin (Aspirin 81 Mg Chew Tab*) 81 mg PO DAILY [facility] Hydralazine HCl (Apresoline Tab*) 10 mg PO BID [facility] Sodium Chloride (Ns 0.9% 1000 Ml*) 1,000 mls @ 75 mls/hr IV PER RATE [facility] Lidocaine (Lidoderm 5% Patch*) 1 patch TRANSDERM DAILY [facility] Losartan Potassium (Cozaar Tab*) 100 mg PO DAILY [facility] Meloxicam (Mobic(Nf)) 7.5 mg PO BID [facility] Multivitamins/Minerals (Theragran/Minerals Tab*) 1 tab PO DAILY [facility] Omeprazole (Prilosec Cap*) 20 mg PO BID [facility] Pharmacy Profile Note (Lidocaine Patch Remove*) 1 note PATCH OFF 1200 ONE Pravastatin Sodium (Pravachol (Nf)) 80 mg PO BEDTIME [facility]; Protocol Vital Signs - 8 hr 05/20/18 05/20/18 05/20/18 02:32 02:51 04:15 Temperature 96.4 F 98.2 F Pulse Rate 83 73 76 Respiratory 13 18 18 Rate Blood Pressure 153/79 153/79 157/97 (mmHg) O2 Sat by Pulse 94 93 98 Oximetry 05/20/18 07:41 Temperature 98.7 F Pulse Rate 73 Respiratory 18 Rate Blood Pressure 143/69 (mmHg) O2 Sat by Pulse 92 Oximetry Oxygen Devices in Use Now: None Appearance: Elderly woman laying in bed in NAD Eyes: No Scleral Icterus Ears/Nose/Mouth/Throat: Mucous Membranes Moist Neck: NL Appearance and Movements; NL JVP, Trachea Midline Respiratory: Symmetrical Chest Expansion and Respiratory Effort, Clear to Auscultation Cardiovascular: NL Sounds; No Murmurs; No JVD, RRR Abdominal: NL Sounds; No Tenderness; No Distention Extremities: No Edema Skin: No Rash or Ulcers Neurological: Alert and Oriented x 3, NL Sensation Lines/Tubes/Other Access: Clean, Dry and Intact Peripheral IV Nutrition: Taking PO's Result Diagrams: 05/20/18 05:00 05/20/18 05:00 Assess/Plan/Problems-Billing Assessment: Ms. Deras is an 87 yo with PMH of HTN, HLD, CAD, and osteoporosis who presented to the ED initially on 05/17 after a fall and was found to have L2-L3 fractures, then presented again on 05/19 after another fall and was found to have a UTI and prolonged QT interval. - Patient Problems (1) Prolonged QT interval Current Visit: Yes Status: Acute Code(s): R94.31 - ABNORMAL ELECTROCARDIOGRAM [ECG] [EKG] SNOMED Code(s): 967622606 Comment: - EKG machine reads as QTc 600, though it is actually closer to 450-500 based on measurements - Has been on multiple meds which can accidently activate c2q4 enxyme then indirectly prolong the QTc - Electrolytes normal - Hold cardizem - Monitor on tele and serial EKGs (2) Recurrent falls Current Visit: Yes Status: Acute Code(s): R29.6 - REPEATED FALLS SNOMED Code(s): 806464581 Comment: - Unclear etiology - Awaiting orthostatic VS, echo - Physical therapy - Likely needs [facility] (3) Lumbar vertebral fracture Current Visit: Yes Status: Acute Comment: - Pain control (4) UTI (urinary tract infection) Current Visit: Yes Status: Acute Comment: - Pending urine culture - Continue augmentin (5) HTN (hypertension) Current Visit: No Status: Acute Code(s): I10 - ESSENTIAL (PRIMARY) HYPERTENSION SNOMED Code(s): 55591818 Comment: - Fair control - Continue losartan, hydralazine (6) Coronary artery disease Current Visit: Yes Status: Acute Code(s): I25.10 - ATHSCL HEART DISEASE OF [place] CORONARY ARTERY W/O ANG PCTRS SNOMED Code(s): 90267108 Comment: - Continue aspirin (7) Hyperlipidemia Current Visit: Yes Status: Acute Code(s): E78.5 - HYPERLIPIDEMIA, UNSPECIFIED SNOMED Code(s): 14720532 Comment: - Continue pravastatin (8) DVT prophylaxis Current Visit: No Status: Acute Code(s): IRU6452 - SNOMED Code(s): 894933277 Comment: - Heparin SQ (9) DNR (do not resuscitate) Current Visit: No Status: Acute Status and Disposition: Inpatient. Anticipate d/c to [facility] when medically stable. Pending PT eval.
[2018-05-20] MEDS ORDERED: Lidocaine Patch REMOVE* 1 NOTE MISC PATCH OFF ONE (12:00)
--- NOTE | 2018-05-20 13:34 | ECHO ---
Patient: HEATHER MOORE [facility] Rec#: [id number] : 1930 Date: 05/20/2018 Age: 87y Height: 155 cm / 61.0 in Weight: 80.7 kg / 177.9 lbs Sex: F BSA: 1.8 Room#: 435 Admit Date#: 05/20/2018 Type: Inpatient Referring: Melisa Shell Reading: Randa Garcia MD Hand Cloth Folder: Adrianne Brody RDCS CC: Renato Solomon MD Transthoracic Echocardiogram Indication: Abnormal EKG, prolonged QT. BP: 157/97 HR: 79 Rhythm: NSR with PACs Findings History: HTN Technical Comments: The study quality is fair. Completed at 1300. Left Ventricle: The left ventricular chamber size is normal. There is no left ventricular hypertrophy. Global left ventricular wall motion and contractility are within normal limits. There is normal left ventricular systolic function. The estimated ejection fraction is 55-60%. The assessment of diastolic function is non-diagnostic. Left Atrium: The left atrium is mildly dilated. Right Ventricle: Moderator Band present. The right ventricular cavity size is normal. The right ventricular global systolic function is normal. Right Atrium: The right atrium is mildly dilated. Aortic Valve: The aortic valve is trileaflet. The aortic valve leaflets are moderately thickened. Systolic excursion of the aortic valve cusps is reduced. There is a trace of aortic regurgitation. There is no evidence of aortic stenosis. Mitral Valve: There is mitral annular calcification. The mitral valve leaflets are mildly thickened. There is trace to mild mitral regurgitation. There is no evidence of mitral stenosis. Tricuspid Valve: The tricuspid valve leaflets are normal. There is trace tricuspid regurgitation. Unable to estimate the right ventricular systolic pressure. There is no tricuspid stenosis. Pulmonic Valve: The pulmonic valve appears normal. There is a trace pulmonic regurgitation. There is no pulmonic stenosis. Pericardium: There is no significant pericardial effusion. Aorta: There is no dilatation of the ascending aorta. There is no dilatation of the aortic arch. The aortic root is normal in size. Pulmonary Artery: The main pulmonary artery appears normal. Venous: The inferior vena cava appears normal in size. There is a greater than 50% respiratory change in the inferior vena cava dimension. Conclusions The left ventricular chamber size is normal. Global left ventricular wall motion and contractility are within normal limits. The estimated ejection fraction is 55-60%. The assessment of diastolic function is non-diagnostic. The right ventricular global systolic function is normal. The aortic valve leaflets are moderately thickened and calcified with trace aortic regurgitation. There is trace to mild mitral regurgitation with MAC and mild leaflet sclerosis. No prior echo to compare available. Measurements Name Value Normal Range RVIDd (AP) 2D 2.33 cm (0.9 - 2.6) RVDdMajor (2D) 4 cm (2.2 - 4.4) RAd ISD 4CH 5.4 cm (3.4 - 4.9) RA (A4C)W 3.7 cm (2.9 - 4.6) IVSd (2D) 1 cm (0.6 - 1) LVPWd (2D) 1 cm (0.6 - 1) LVIDd (2D) 4 cm (3.6 - 5.4) LVIDs (2D) 2.8 cm - LV FS (2D) 30 % (25 - 45) Aortic Annulus 1.9 cm (1.4 - 2.6) Ao root diameter (2D) 2.8 cm (2.1 - 3.5) Ascending Ao 3.4 cm (2.1 - 3.4) Aortic arch 2.2 cm (1.8 - 3.4) LA dimension (AP) 2D 3.4 cm (2.3 - 3.8) LAd ISD 4CH 6.2 cm (2.9 - 5.3) LA ISD 4CH W 4.6 cm (2.5 - 4.5) Name Value Normal Range LA ESV BP (A/L) index 36 ml/m2 - Name Value Normal Range MV E-wave Vmax 0.7 m/sec - MV deceleration time 324 msec - MV A-wave Vmax 0.9 m/sec - MV E:A ratio 0.7 ratio - LV septal e' Vmax 0.06 m/sec - LV lateral e' Vmax 0.08 m/sec - LV E:e' septal ratio 11.67 ratio - LV E:e' lateral ratio 8.75 ratio - Name Value Normal Range AV Vmax 1.7 m/sec - AV VTI 33.4 cm - AV peak gradient 11 mmHg - AV mean gradient 5 mmHg - DAVID Vmax 0.8 m/sec - Name Value Normal Range IVC diameter 1.8 cm - Name Value Normal Range PV Vmax 1 m/sec - PV peak gradient 4 mmHg -
[2018-05-20] MEDS: Heparin VIAL(*) 5000 UNITS/ML VIAL (FIVE THOUSAND) SUBCUT SCH ×2 (14:43→20:57)
[2018-05-20] MEDS: CMCS: Pravastatin (NF) 20 MG TAB PO SCH (20:56)
[2018-05-20] MEDS ORDERED: Atorvastatin* 20 MG TAB PO SCH (21:00)
[2018-05-20] MEDS ORDERED: Gabapentin CAP(*) 300 MG PO SCH (21:00)
[2018-05-21] MEDS: NS 0.9% 1000 ML* 1,000 ML IV SCH (02:32)
[2018-05-21] MEDS: Heparin VIAL(*) 5000 UNITS/ML VIAL (FIVE THOUSAND) SUBCUT SCH ×3 (05:13→20:33)
[2018-05-21 06:01] LABS: EGFR Non-African American 82.2 (>60)
[2018-05-21] MEDS ORDERED: Magnesium Sulfate 2 GM IV* 2 GM/50 ML BAG IVPB ONE (08:16)
[2018-05-21] MEDS: CMCS: Meloxicam(NF) 7.5 MG TAB PO SCH ×2 (09:14→20:32)
[2018-05-21] MEDS: hydrALAZINE TAB* 10 MG PO SCH ×2 (09:14→20:32)
[2018-05-21] MEDS: Omeprazole CAP* 20 MG PO SCH ×2 (09:14→20:32)
[2018-05-21] MEDS: Aspirin 81 mg CHEW TAB* 81 MG TAB.CHEW PO SCH (09:14)
[2018-05-21] MEDS: Multivitamins/Minerals TAB PO SCH (09:15)
[2018-05-21] MEDS: Lidocaine PATCH 5%* 1 PATCH TRANSDERM SCH (09:15)
[2018-05-21] MEDS: Losartan TAB* 25 MG PO SCH (09:15)
[2018-05-21] MEDS: Cyanocobalamin TAB* 500 MCG PO SCH (09:20)
[2018-05-21] MEDS: Acetaminophen TAB* 325 MG PO PRN (11:15)
--- NOTE | 2018-05-21 15:36 | PN ---
Subjective Date of Service: 05/21/18 Interval History: Ms. Deras is feeling better today. She continues to report fatigue and generalized weakness, but feels this has improved since yesterday. She is now c/ o lower back pain. There is increased pain when she touches the area. She has been up ambulating in the halls with assistance. She denies CP, SOB, N/V/D, dizziness. Family History: Unchanged from Admission Social History: Unchanged from Admission Past Medical History: Unchanged from Admission Objective Active Medications: Acetaminophen (Tylenol Tab*) 650 mg PO Q4H PRN PAIN Alendronate Sodium (Fosamax (Nf)) 70 mg PO WEEKLY [facility]; Protocol Aspirin (Aspirin 81 Mg Chew Tab*) 81 mg PO DAILY [facility] Cyanocobalamin (Vitamin B12 Tab*) 1,000 mcg PO DAILY [facility] Heparin Sodium (Porcine) (Heparin Vial(*)) 5,000 units SUBCUT Q8HR [facility] Hydralazine HCl (Apresoline Tab*) 10 mg PO BID [facility] Lidocaine (Lidoderm 5% Patch*) 1 patch TRANSDERM DAILY [facility] Losartan Potassium (Cozaar Tab*) 100 mg PO DAILY [facility] Meloxicam (Mobic(Nf)) 7.5 mg PO BID [facility] Multivitamins/Minerals (Theragran/Minerals Tab*) 1 tab PO DAILY [facility] Omeprazole (Prilosec Cap*) 20 mg PO BID [facility] Pravastatin Sodium (Pravachol (Nf)) 80 mg PO BEDTIME [facility]; Protocol Vital Signs - 8 hr 05/21/18 05/21/18 05/21/18 07:38 11:11 11:12 Temperature 97.5 F 98.5 F Pulse Rate 74 71 Respiratory 18 Rate Blood Pressure 142/70 121/105 122/55 (mmHg) O2 Sat by Pulse 93 96 Oximetry 05/21/18 15:16 Temperature 98.0 F Pulse Rate 72 Respiratory 16 Rate Blood Pressure 143/68 (mmHg) O2 Sat by Pulse 98 Oximetry Oxygen Devices in Use Now: None Appearance: Elderly female sitting in bed in NAD Eyes: No Scleral Icterus Ears/Nose/Mouth/Throat: Mucous Membranes Moist Neck: NL Appearance and Movements; NL JVP, Trachea Midline Respiratory: Symmetrical Chest Expansion and Respiratory Effort, Clear to Auscultation Cardiovascular: NL Sounds; No Murmurs; No JVD, RRR Abdominal: NL Sounds; No Tenderness; No Distention Extremities: No Edema Skin: No Rash or Ulcers Neurological: Alert and Oriented x 3, NL Sensation, NL Gait Lines/Tubes/Other Access: Clean, Dry and Intact Peripheral IV Nutrition: Taking PO's Result Diagrams: 05/20/18 05:00 05/21/18 05:30 Assess/Plan/Problems-Billing Assessment: Ms. Deras is an 87 yo with PMH of HTN, HLD, CAD, and osteoporosis who presented to the ED initially on 05/17 after a fall and was found to have L2-L3 fractures, then presented again on 05/19 after another fall and was found to have a UTI and prolonged QT interval. - Patient Problems (1) Prolonged QT interval Current Visit: Yes Status: Acute Code(s): R94.31 - ABNORMAL ELECTROCARDIOGRAM [ECG] [EKG] SNOMED Code(s): 707314552 Comment: - EKG machine reads as QTc 600-700, though it is actually closer to 420-500 based on hand measurements - Has been on multiple meds which can accidently activate c2q4 enxyme then indirectly prolong the QTc - Electrolytes normal, but will give an extra 2gm mag sulfate today d/t QTc - Hold cardizem - Monitor on tele and serial EKGs (2) Recurrent falls Current Visit: Yes Status: Acute Code(s): R29.6 - REPEATED FALLS SNOMED Code(s): 580958349 Comment: - Unclear etiology - Not orthostatic; no significant abnormalities on echo - Physical therapy - Likely needs [facility] (3) Lumbar vertebral fracture Current Visit: Yes Status: Acute Comment: - Pain control - Add [place] for pain management (4) HTN (hypertension) Current Visit: No Status: Acute Code(s): I10 - ESSENTIAL (PRIMARY) HYPERTENSION SNOMED Code(s): 24363592 Comment: - Good control - Continue losartan, hydralazine (5) UTI (urinary tract infection) Current Visit: Yes Status: Acute Comment: - Urine culture showed no growth; Augmentin stopped (6) Coronary artery disease Current Visit: Yes Status: Acute Code(s): I25.10 - ATHSCL HEART DISEASE OF [place] CORONARY ARTERY W/O ANG PCTRS SNOMED Code(s): 46326218 Comment: - Continue aspirin (7) Hyperlipidemia Current Visit: Yes Status: Acute Code(s): E78.5 - HYPERLIPIDEMIA, UNSPECIFIED SNOMED Code(s): 73414952 Comment: - Continue pravastatin (8) DVT prophylaxis Current Visit: No Status: Acute Code(s): PUQ2510 - SNOMED Code(s): 620030517 Comment: - Heparin SQ (9) DNR (do not resuscitate) Current Visit: No Status: Acute Status and Disposition: Inpatient. Anticipate d/c to [facility] when medically stable.
[2018-05-21] MEDS: HYDROcodone/ACETAMIN 5-325 MG* 1 TAB PO PRN ×2 (16:19→20:32)
[2018-05-21] MEDS: CMCS: Pravastatin (NF) 20 MG TAB PO SCH (20:31)
[2018-05-22] MEDS: Heparin VIAL(*) 5000 UNITS/ML VIAL (FIVE THOUSAND) SUBCUT SCH ×3 (05:25→21:31)
[2018-05-22] MEDS: Multivitamins/Minerals TAB PO SCH (09:22)
[2018-05-22] MEDS: CMCS: Meloxicam(NF) 7.5 MG TAB PO SCH ×2 (09:22→21:31)
[2018-05-22] MEDS: Aspirin 81 mg CHEW TAB* 81 MG TAB.CHEW PO SCH (09:24)
[2018-05-22] MEDS: Losartan TAB* 25 MG PO SCH (09:25)
[2018-05-22] MEDS: Cyanocobalamin TAB* 500 MCG PO SCH (09:25)
[2018-05-22] MEDS: hydrALAZINE TAB* 10 MG PO SCH (09:25)
[2018-05-22] MEDS: Omeprazole CAP* 20 MG PO SCH ×2 (09:26→21:31)
[2018-05-22] MEDS: Lidocaine PATCH 5%* 1 PATCH TRANSDERM SCH (12:02)
--- NOTE | 2018-05-22 12:28 | PN ---
Subjective Date of Service: 05/22/18 Interval History: Ms. Deras is feeling good. She is in good spirits and happy that she will be returning to [facility]. She has been up ambulating in the halls with assistance. She continues to feel slightly weak from baseline. She c/o heartburn which she says is normal for her. She denies CP, SOB, N/V/D, dizziness. Family History: Unchanged from Admission Social History: Unchanged from Admission Past Medical History: Unchanged from Admission Objective Active Medications: Acetaminophen (Tylenol Tab*) 650 mg PO Q4H PRN PAIN Hydrocodone Bitart/Acetaminophen ([place] 5-325 Tab*) 1 tab PO Q4H PRN PAIN Alendronate Sodium (Fosamax (Nf)) 70 mg PO WEEKLY [facility]; Protocol Aspirin (Aspirin 81 Mg Chew Tab*) 81 mg PO DAILY [facility] Cyanocobalamin (Vitamin B12 Tab*) 1,000 mcg PO DAILY [facility] Heparin Sodium (Porcine) (Heparin Vial(*)) 5,000 units SUBCUT Q8HR [facility] Hydralazine HCl (Apresoline Tab*) 10 mg PO BID [facility] Lidocaine (Lidoderm 5% Patch*) 1 patch TRANSDERM DAILY [facility] Losartan Potassium (Cozaar Tab*) 100 mg PO DAILY [facility] Meloxicam (Mobic(Nf)) 7.5 mg PO BID [facility] Multivitamins/Minerals (Theragran/Minerals Tab*) 1 tab PO DAILY [facility] Omeprazole (Prilosec Cap*) 20 mg PO BID [facility] Pravastatin Sodium (Pravachol (Nf)) 80 mg PO BEDTIME [facility]; Protocol Vital Signs - 8 hr 05/22/18 05/22/18 05/22/18 07:41 08:00 11:17 Temperature 98.0 F 97.9 F Pulse Rate 65 78 Respiratory 18 18 16 Rate Blood Pressure 159/60 139/67 (mmHg) O2 Sat by Pulse 96 95 Oximetry Oxygen Devices in Use Now: None Appearance: Elderly female sitting in chair in NAD Eyes: No Scleral Icterus Ears/Nose/Mouth/Throat: Mucous Membranes Moist Neck: NL Appearance and Movements; NL JVP, Trachea Midline Respiratory: Symmetrical Chest Expansion and Respiratory Effort, Clear to Auscultation Cardiovascular: NL Sounds; No Murmurs; No JVD, RRR Abdominal: NL Sounds; No Tenderness; No Distention Extremities: No Edema Skin: No Rash or Ulcers Neurological: Alert and Oriented x 3 Lines/Tubes/Other Access: Clean, Dry and Intact Peripheral IV Nutrition: Taking PO's Result Diagrams: 05/20/18 05:00 05/21/18 05:30 Assess/Plan/Problems-Billing Assessment: Ms. Deras is an 87 yo with PMH of HTN, HLD, CAD, and osteoporosis who presented to the ED initially on 05/17 after a fall and was found to have L2-L3 fractures, then presented again on 05/19 after another fall and was found to have a UTI and prolonged QT interval. - Patient Problems (1) Prolonged QT interval Current Visit: Yes Status: Acute Code(s): R94.31 - ABNORMAL ELECTROCARDIOGRAM [ECG] [EKG] SNOMED Code(s): 958782450 Comment: - EKG machine showing high QTc as it is reading the U wave as a T wave; QTc on last EKG according to my measurement is 447 - Electrolytes normal, so U wave is not concerning - Continue to monitor on tele - Resume cardizem (2) Recurrent falls Current Visit: Yes Status: Acute Code(s): R29.6 - REPEATED FALLS SNOMED Code(s): 452326546 Comment: - Unclear etiology - Not orthostatic; no significant abnormalities on echo - Physical therapy; needs [facility] (3) Lumbar vertebral fracture Current Visit: Yes Status: Acute Comment: - Pain control - Add [place] for pain management (4) HTN (hypertension) Current Visit: No Status: Acute Code(s): I10 - ESSENTIAL (PRIMARY) HYPERTENSION SNOMED Code(s): 03329991 Comment: - Good control - Continue losartan, hydralazine - Resume cardizem (5) Coronary artery disease Current Visit: Yes Status: Acute Code(s): I25.10 - ATHSCL HEART DISEASE OF [place] CORONARY ARTERY W/O ANG PCTRS SNOMED Code(s): 19090004 Comment: - Continue aspirin (6) Hyperlipidemia Current Visit: Yes Status: Acute Code(s): E78.5 - HYPERLIPIDEMIA, UNSPECIFIED SNOMED Code(s): 54896488 Comment: - Continue pravastatin (7) DVT prophylaxis Current Visit: No Status: Acute Code(s): FGE5160 - SNOMED Code(s): 821137906 Comment: - Heparin SQ (8) DNR (do not resuscitate) Current Visit: No Status: Acute Status and Disposition: Inpatient. Anticipate d/c to [facility] tomorrow.
[2018-05-22] MEDS: Acetaminophen TAB* 325 MG PO PRN (16:50)
[2018-05-22] MEDS: Diltiazem CD CAP* 120 MG PO SCH (21:31)
[2018-05-22] MEDS: HYDROcodone/ACETAMIN 5-325 MG* 1 TAB PO PRN (21:31)
[2018-05-22] MEDS: CMCS: Pravastatin (NF) 20 MG TAB PO SCH (21:32)
[2018-05-23] MEDS: Heparin VIAL(*) 5000 UNITS/ML VIAL (FIVE THOUSAND) SUBCUT SCH (05:15)
[2018-05-23] MEDS: HYDROcodone/ACETAMIN 5-325 MG* 1 TAB PO PRN (06:14)
[2018-05-23 07:33] VITALS: BP 135/57
[2018-05-23] MEDS: Cyanocobalamin TAB* 500 MCG PO SCH (09:10)
[2018-05-23] MEDS: Losartan TAB* 25 MG PO SCH (09:10)
[2018-05-23] MEDS: Aspirin 81 mg CHEW TAB* 81 MG TAB.CHEW PO SCH (09:10)
[2018-05-23] MEDS: Multivitamins/Minerals TAB PO SCH (09:11)
[2018-05-23] MEDS: Lidocaine PATCH 5%* 1 PATCH TRANSDERM SCH (09:11)
[2018-05-23] MEDS: Diltiazem CD CAP* 120 MG PO SCH (09:11)
[2018-05-23] MEDS: Omeprazole CAP* 20 MG PO SCH (09:11)
[2018-05-23] MEDS: CMCS: Meloxicam(NF) 7.5 MG TAB PO SCH (09:11)
--- NOTE | 2018-05-23 10:31 | PN ---
Subjective Date of Service: 05/23/18 Interval History: Patient is feeling well. Patient denies CP, SOB, back pain, N/V, abdominal pain , diarrhea, dysuria, or other pain. Patient complains of chronic numbness in left and fingertips but denies other numbness. Family History: Unchanged from Admission Social History: Unchanged from Admission Past Medical History: Unchanged from Admission Objective Active Medications: Acetaminophen (Tylenol Tab*) 650 mg PO Q4H PRN PRN Reason: PAIN Last Admin: 05/22/18 16:50 Dose: 650 mg Hydrocodone Bitart/Acetaminophen (Francitas 5-325 Tab*) 1 tab PO Q4H PRN PRN Reason: PAIN Last Admin: 05/23/18 06:14 Dose: 1 tab Alendronate Sodium (Fosamax (Nf)) 70 mg PO WEEKLY [facility]; Protocol Aspirin (Aspirin 81 Mg Chew Tab*) 81 mg PO DAILY [facility] Last Admin: 05/23/18 09:10 Dose: 81 mg Cyanocobalamin (Vitamin B12 Tab*) 1,000 mcg PO DAILY [facility] Last Admin: 05/23/18 09:10 Dose: 1,000 mcg Diltiazem HCl (Cardizem Cd Cap*) 120 mg PO BID [facility] Last Admin: 05/23/18 09:11 Dose: 120 mg Heparin Sodium (Porcine) (Heparin Vial(*)) 5,000 units SUBCUT Q8HR [facility] Last Admin: 05/23/18 05:15 Dose: 5,000 units Lidocaine (Lidoderm 5% Patch*) 1 patch TRANSDERM DAILY [facility] Last Admin: 05/23/18 09:11 Dose: 1 patch Losartan Potassium (Cozaar Tab*) 100 mg PO DAILY [facility] Last Admin: 05/23/18 09:10 Dose: 100 mg Meloxicam (Mobic(Nf)) 7.5 mg PO BID [facility] Last Admin: 05/23/18 09:11 Dose: 7.5 mg Multivitamins/Minerals (Theragran/Minerals Tab*) 1 tab PO DAILY [facility] Last Admin: 05/23/18 09:11 Dose: 1 tab Omeprazole (Prilosec Cap*) 20 mg PO BID [facility] Last Admin: 05/23/18 09:11 Dose: 20 mg Pravastatin Sodium (Pravachol (Nf)) 80 mg PO BEDTIME [facility]; Protocol Last Admin: 05/22/18 21:32 Dose: 80 mg Vital Signs - 8 hr 05/23/18 05/23/18 05/23/18 03:25 06:14 07:20 Temperature 97.8 F 98.5 F Pulse Rate 61 57 Respiratory 16 20 16 Rate Blood Pressure 156/58 135/57 (mmHg) O2 Sat by Pulse 95 99 Oximetry 05/23/18 05/23/18 07:33 08:49 Temperature Pulse Rate Respiratory 14 16 Rate Blood Pressure (mmHg) O2 Sat by Pulse Oximetry Oxygen Devices in Use Now: None Appearance: Patient is an 87yo female who appears stated age and is sitting in the bed in NAD. Eyes: No Scleral Icterus, PERRLA Ears/Nose/Mouth/Throat: NL Teeth, Lips, Gums, Clear Oropharnyx, Mucous Membranes Moist Neck: NL Appearance and Movements; NL JVP, Trachea Midline Respiratory: Symmetrical Chest Expansion and Respiratory Effort, Clear to Auscultation Cardiovascular: NL Sounds; No Murmurs; No JVD, RRR, No Edema Abdominal: NL Sounds; No Tenderness; No Distention, No Hepatosplenomegaly Lymphatic: No Cervical Adenopathy Extremities: No Edema, No Clubbing, Cyanosis Skin: No Rash or Ulcers, No Nodules or Sclerosis Neurological: Alert and Oriented x 3, NL Sensation, NL Muscle Strength and Tone , - - CN II-XII intact. Negative Romberg and normal cerebellar testing. Result Diagrams: 05/20/18 05:00 05/21/18 05:30 Microbiology and Other Data: Microbiology 05/19/18 23:40 Urine Culture - Final Urine EKG Data: ns prolonged qtc 593 but no other acute st t change Assess/Plan/Problems-Billing Assessment: Ms. Deras is an 87 yo with PMH of HTN, HLD, CAD, and osteoporosis who presented to the ED initially on 05/17 after a fall and was found to have L2-L3 fractures, then presented again on 05/19 after another fall and was found to have a UTI and prolonged QT interval. Status and Disposition: Inpatient. Anticipate d/c to [facility] tomorrow.
--- NOTE | 2018-05-23 12:01 | DS ---
CC: Dr. Renato Solomon; [facility] * DISCHARGE SUMMARY: DATE OF ADMISSION: 05/20/18 DATE OF DISCHARGE: 05/23/18 (this has been dictated in advance). PRIMARY CARE PROVIDER: Dr. Renato Solomon. ATTENDING PHYSICIAN: Dr. Lety Islas * (dictated by Sandra Lawrence NP). PRIMARY DIAGNOSES: 1. Questionable prolonged QT interval, determined to be presence of U-wave. 2. Recurrent falls. 3. Lumbar vertebral fracture. SECONDARY DIAGNOSES: 1. Hypertension. 2. Coronary artery disease. 3. Hyperlipidemia. STUDIES WHILE IN THE HOSPITAL: 1. Brain CT on 05/19/18: No acute intracranial abnormality. Age-related atrophy and moderate small vessel ischemic changes. 2. EKG on 05/19/18 showed normal sinus rhythm at a rate of 74. No ischemic changes. U-waves are present. QTc read by EKG machine as 594, though to my measurement is 390. 3. EKG on 05/20/18 showed normal sinus rhythm with a rate of 74. No ischemic changes. U-waves are present. QTc on EKG machine is 602, though to my measurement is 444. 4. Transthoracic echocardiogram on 05/20/18 reads as: The left ventricular chamber size is normal. Global left ventricular wall motion and contractility are within normal limits. The estimated ejection fraction is 55% to 60%. The assessment of diastolic function is nondiagnostic. The right ventricular global systolic function is normal. The aortic valve leaflets are mildly thickened and calcified with trace aortic regurgitation. There is trace to mild mitral regurgitation with MAC and mild leaflet sclerosis. No prior echocardiogram to compare. 5. EKG on 05/21/18 showed normal sinus rhythm at a rate of 67. No ischemic changes. U-waves are present. QTc according to EKG machine is 730, though to my measurement is 423. 6. EKG on 05/21/18 shows normal sinus rhythm at a rate of 75. No ischemic changes. U-waves are present. QTc on EKG machine is 475, and my measurement is the same. HISTORY OF PRESENT ILLNESS AND HOSPITAL COURSE: Ms. Deras is an 87-year- old female with past medical history of hypertension, hyperlipidemia, CAD, and osteoporosis who presented to the emergency room initially on 05/17/18 after a fall and was found to have L2-L3 fractures and presented again on 05/19/18 after another fall with complaints of another fall. Please see the history and physical by Dr. Shell for a complete summary of the events leading up to this hospitalization. In short, the patient had another fall at home. She was unable to state whether these falls were mechanical. She denies losing consciousness and states as though she felt weak and hence fell on the floor. She reports that one of the falls occurred when she was sitting in her chair, went to stand up, felt weak and fell forward. She lives in a senior apartment and was able to call for help to get up. In the emergency room, there was an EKG which showed a questionable long QT. The patient had been on multiple medications which could have prolonged her QTc and there was therefore a concern for prolonged QT. She was admitted by the hospitalist service for recurrent falls and prolonged QT. The patient continued to feel generally weak and somewhat fatigued, although she has been able to work with Physical Therapy and has been able to ambulate through the unit with assistance. Syncope workup has been unremarkable as noted on imaging above and negative orthostatic vitals. As noted above, the EKG machine has read her QTc's long, up to 700, though it appears as though the EKG machine is picking up the presence of U-waves and measuring those as T- waves, hence measuring a long QT. According to my measurements, her QTc's have been under 500 and therefore there is not actually a significant concern for long QT. I will note that back in February, the patient had a normal EKG here , which showed a QTc in the 400s and no U-wave. The patient has been able to manage her back pain due to lumbar vertebral fractures with lidocaine patches and acetaminophen. She is agreeable to subacute rehab as she has gone to rehab before and feels as though it has helped her to get back to her baseline. She is looking forward to going to rehab and feels as though her fatigue and weakness are generally improving. Ms. Deras is stable for discharge. Vital signs are as follows: Temperature 97.9, heart rate 70, respiratory rate 20, oxygen saturation 96% on room air, blood pressure 141/73. DISCHARGE MEDICATIONS: New home medication: 1. Vitamin B12 1000 mcg daily. Continued home medications: 1. Acetaminophen 650 mg q.4 hours p.r.n. pain. 2. Fosamax 70 mg p.o. weekly. 3. Aspirin 81 mg p.o. daily. 4. Diltiazem 120 mg p.o. b.i.d. 5. Lidoderm patch 5% one patch transdermal daily. 6. Losartan 100 mg p.o. daily. 7. Meloxicam 7.5 mg p.o. b.i.d. 8. Multivitamin 1 tab p.o. daily. 9. Omeprazole 20 mg p.o. b.i.d. 10. Alprazolam 0.25 to 0.5 mg p.o. b.i.d. p.r.n. anxiety. 11. Betamethasone 0.05% topical t.i.d. p.r.n. itching. 12. Duloxetine 60 mg p.o. daily. 13. Gabapentin 300 mg p.o. at bedtime. 14. Simvastatin 40 mg p.o. at bedtime. 15. Tramadol 50 mg p.o. b.i.d. p.r.n. pain. Discontinued medication: 1. Etodolac. DISCHARGE PLAN: Ms. Deras will be discharged to subacute rehab at [facility]. ACTIVITY: As tolerated. DIET: Heart-healthy. MEDICATIONS: As noted above. The patient has been started on vitamin B12 as she was noted to have a low serum B12 level while here in the hospital. Her etodolac was discontinued as it was noted that the patient was taking meloxicam and etodolac at home and she should not be taking 2 different NSAIDs as this could lead to renal failure. She can continue her meloxicam. She can continue her other usual medications and her pain should be well managed with those medications. She will need to follow up with her primary care provider after leaving subacute rehab. She should return to the emergency room or nearest hospital for any worsening of symptoms, shortness of breath, lightheadedness, dizziness, chest discomfort, high fevers, chills, night sweats, loss of consciousness, or any other worrisome signs or symptoms. This is a summarized report of a complex medical history and hospital stay. For further details, please see the entire medical record. TIME SPENT: Approximately 40 minutes were spent on this discharge, greater than half of that time was spent [id number] with the patient discussing discharge plans and instructions. SANDRA LAWRENCE, VICTOR MANUEL [id number]/JAMAR #: [id number] MARK
== END 2018-05-23 11:40 | DRG 309 ==
LOC: ED 21:53 → MEDTELE 05-20 01:40
PROVIDERS: ADMIT Internal Medicine; ATTEND Internal Medicine
DX: I45.81 Long QT syndrome (principal); S32.029A Unspecified fracture of second lumbar vertebra, initial encounter for closed fracture; S32.039A Unspecified fracture of third lumbar vertebra, initial encounter for closed fracture; I11.9 Hypertensive heart disease without heart failure; W18.30XA Fall on same level, unspecified, initial encounter; I25.10 Atherosclerotic heart disease of native coronary artery without angina pectoris; Z66 Do not resuscitate; E78.5 Hyperlipidemia, unspecified; R26.81 Unsteadiness on feet; M81.0 Age-related osteoporosis without current pathological fracture; R42 Dizziness and giddiness; Y92.099 Unspecified place in other non-institutional residence as the place of occurrence of the external cause; Z91.81 History of falling; Z83.3 Family history of diabetes mellitus; Z79.2 Long term (current) use of antibiotics; Z79.1 Long term (current) use of non-steroidal anti-inflammatories (NSAID); Z79.82 Long term (current) use of aspirin; Z79.899 Other long term (current) drug therapy; M79.602 Pain in left arm
CPT/HCPCS: 36415; 70450; 80048; 80053; 80061; 81003; 81015; 82306; 82330; 82607; 83605; 83735; 83880; 84439; 84443; 84484; 85025; 87086; 93005; 93306; 99285; A9270-GY; G8978-GP-CJ; G8979-GP-CI; J0696; J1644; J2405; J3475; J3480

== ENCOUNTER 2018-07-19 10:51 | Inpatient (IN) | payer MEDICARE ==
--- NOTE | 2018-07-19 12:03 | ED ---
Complex/Multi-Sys Presentation - HPI Summary HPI Summary: Patient is a 87 y/o F presenting to ED with complaints of feeling unsafe at home , nausea, decreased appetite, and slight GIMENEZ. Per triage, visiting RN called EMS as she states that she did not feel safe at home. Nausea, decreased appetite, and GIMENEZ are noted to be present from the past few days. She reports a cough as well but describes it as chronic. Patient denies abdominal pain, chest pain, SOB , pain/edema in BLE. She is alert and oriented x2, patient is aware that she is in [place] but is unsure where she is specifically (could not say [facility]). In the room, she states that she does not feel safe "any place, except maybe here". Hx of dementia, she is fuzzy on history. Patient has a band on her wrist stating that patient was admitted to [facility] on 07/14/18. She received radial cardiac catheterization, based on exam with radial artery puncture site and ecchymosis, however pt cannot give any more details. Patient lives at home in [place], and states she has not been taking her meds. She has a son in [place] who was contacted by ED RN, however, no response as of time of initial evaluation. FMHx of cardiac disease in mother. Patient is unsure if she is on blood thinners at this time. She reports chronic cough. On triage, pain is denied, nothing it noted to aggravate/alleviate Sx. Home medications and allergies are reviewed. In room, pulse 76, o2 98, BP 147/118. There is no one accompanying pt while in the ED. Hx only from EMS who had hx from visiting nurse. Allergies Allergy/AdvReac Type Severity Reaction Status Date / Time Adhesive Tape [Plastic Tape] Allergy See Comment Verified 07/19/18 11:01 levofloxacin Allergy See Comment Verified 07/19/18 11:01 Home Medications Atorvastatin* [Lipitor 40 MG*] 40 mg PO BEDTIME 07/19/18 [History Confirmed ] Metoprolol Tartrate [Lopressor] 50 mg PO BID 07/19/18 [History Confirmed ] Nitroglycerin 0.4 mg SL Q5M PRN MDD 3 tabs 07/19/18 [History Confirmed 07/19/18] Ticagrelor* [Brilinta 90 MG*] 90 mg PO BID 07/19/18 [History Confirmed 07/19/18] - History Of Current Complaint Chief Complaint: EDGeneral Hx Obtained From: Patient, EMS Onset/Duration: Gradual Onset, Still Present Timing: Constant Severity Currently: Mild Severity Initially: Mild Location: Pain At: - head Character: Typical Headache Aggravating Factor(s): nothing Alleviating Factor(s): nothing Associated Signs And Symptoms: Positive: Headache, Nausea, Other - NEGATIVE - BLE PAIN; POSITIVE - DECREASED APPETITE, FEELING UNSAFE AT HOME. Negative: SOB , Chest Pain, Edema - BLE, Abdominal Pain Related History: Recent Hospitalization - [facility], records requested - Allergies/Home Medications Allergies/Adverse Reactions: Allergies Allergy/AdvReac Type Severity Reaction Status Date / Time Adhesive Tape [Plastic Tape] Allergy See Comment Verified 07/19/18 11:01 levofloxacin Allergy See Comment Verified 07/19/18 11:01 Home Medications: Home Medications Atorvastatin* [Lipitor 40 MG*] 40 mg PO BEDTIME 07/19/18 [History Confirmed ] Metoprolol Tartrate [Lopressor] 50 mg PO BID 07/19/18 [History Confirmed ] Nitroglycerin 0.4 mg SL Q5M PRN MDD 3 tabs 07/19/18 [History Confirmed 07/19/18] Ticagrelor* [Brilinta 90 MG*] 90 mg PO BID 07/19/18 [History Confirmed 07/19/18] PMH/Surg Hx/FS Hx/Imm Hx Previously Healthy: No Endocrine/Hematology History: Denies: Hx Diabetes Cardiovascular History: Reports: Hx Coronary Artery Disease - S/P radial artery catheterization 06/2018 and stents , Hx Hypertension Denies: Hx Pacemaker/ICD History: Denies: Hx Renal Disease Sensory History: Reports: Hx Contacts or Glasses, Hx Hearing Aid Denies: Hx Legally Blind, Hx Deafness Opthamlomology History: Reports: Hx Contacts or Glasses Denies: Hx Legally Blind Neurological History: Reports: Hx Dementia Psychiatric History: Denies: Hx Panic Disorder - Cancer History Cancer Type, Location and Year: None reported Hx Hematologic Symptoms: No Hx Chemotherapy: No Hx Radiation Therapy: No Hx Palliative Cancer Treatment: No - Surgical History Surgery Procedure, Year, and Place: gallbladder, B/L hip, appy, cholecystectomy , tubal ligation, hysterectomy, bladder resection, cardiac catheterization - Immunization History Date of Tetanus Vaccine: utd Date of Influenza Vaccine: fall 2017 Infectious Disease History: No Infectious Disease History: Denies: Traveled Outside the [place] in Last 30 Days - Family History Known Family History: Positive: Cardiac Disease - mother - Social History Lives: Alone Alcohol Use: None Substance Use Type: Reports: None Smoking Status (MU): Never Smoked Tobacco Review of Systems Constitutional: Negative Negative: Chest Pain Negative: Shortness Of Breath Positive: Nausea, Other - POSITIVE - DECREASED APPETITE . Negative: Abdominal Pain Positive: no symptoms reported Positive: Other - NEGATIVE - BLE PAIN . Negative: Edema - BLE Skin: Negative Positive: Headache Psychological: Other - POSITIVE - FEELING UNSAFE AT HOME All Other Systems Reviewed And Are Negative: Yes Physical Exam - Summary Physical Exam Summary: Appearance: Well-appearing, no pain distress, well-nourished, hypertensive Skin: Warm, color reflects adequate perfusion, dry Head: Normal Head/Face inspection, atraumatic Eyes: Conjunctiva clear ENT: Normal inspection Neck: Supple, no nodes, no JVD Respiratory: Lungs clear, normal breath sounds, no respiratory distress Cardio: RRR, No murmur, pulses normal, brisk capillary refill Abdomen: Soft, nontender, no guarding, no rebound, no masses. Scar at RUQ from cholecystectomy Bowel sounds: Present Musculoskeletal: Strength Intact/ROM intact, no calf tenderness, no edema. Psychological: pleasant, confused, cooperative Neuro: A&O x2, CN II-XII intact, motor function 5/5, sensation intact, cerebellar normal; GCS 15, unable to give coherent history, but can make her needs known Triage Information Reviewed: Yes Vital Signs On Initial Exam: Initial Vitals Temp Pulse Resp BP Pulse Ox 98.4 F 77 18 152/83 95 07/19/18 10:56 07/19/18 10:56 07/19/18 10:56 07/19/18 10:56 07/19/18 10:56 Vital Signs Reviewed: Yes - Lisandra Coma Scale Best Eye Response: 4 - Spontaneous Best Motor Response: 6 - Obeys Commands Best Verbal Response: 4 - Confused Coma Scale Total: 14 Diagnostics - Vital Signs Vital Signs Temp Pulse Resp BP Pulse Ox 07/19/18 11:07 83 22 95 07/19/18 10:56 98.4 F 77 18 152/83 95 - Laboratory Result Diagrams: 07/20/18 07:31 07/20/18 07:31 Lab Statement: Any lab studies that have been ordered have been reviewed, and results considered in the medical decision making process. - Radiology CXR Radiology Interpretation Completed By: Radiologist Summary of Radiographic Findings: CXR. IMPRESSION: NO ACTIVE CARDIOPULMONARY DISEASE. THIS REPORT WAS REVIEWED BY ED PHYSICIAN. - CT BRAIN CT CT Interpretation Completed By: Radiologist Summary of CT Findings: BRAIN CT IMPRESSION: NO ACUTE INTRACRANIAL PATHOLOGY. CHRONIC SMALL VESSEL ISCHEMIC CHANGE. THIS REPORT WAS REVIEWED BY ED PHYSICIAN. - EKG 1203 Cardiac Rate: NL - rate of 75 BPM EKG Rhythm: Sinus Rhythm ST Segment: Non-Specific Ectopy: None EKG Comparison: No Significant Change - compared to EKG from 05/21/18 Summary of EKG Findings: EKG showed sinus rhythm with rate of 75 BPM, nml AVIVCT , nml axis, nml QTc. No ectopy, non-specific ST. Inverted T waves V1-V6. No acute changes. No significant change compared to EKG from 05/21/18. Discussed with Dr. Molina. 1324 Cardiac Rate: NL - rate of 78 BPM EKG Rhythm: Sinus Rhythm ST Segment: Non-Specific Ectopy: None EKG Comparison: No Significant Change Summary of EKG Findings: Second EKG showed sinus rhythm with rate of 78 BPM, nml AVIVCT, nml axis, nml QTc. No ectopy, non-specific ST. Inverted T waves V1- V6. No acute changes. No significant change compared to first EKG. Discussed with Dr. Molina. Re-Evaluation - Re-Evaluation First Eval Re-Evaluation Time: 13:14 Change: Unchanged Comment: Trop 0.29, 2nd EKG to be ordered Second Eval Re-Evaluation Time: 14:17 Change: Unchanged Comment: Patient reports GIMENEZ, will be given Tylenol. Agrees to admission. No family present, and no family have called regarding pt. Complex Multi-Symp Course/Dx Course Of Treatment: Patient is a 87 y/o F presenting to ED with complaints of feeling unsafe at home, nausea, decreased appetite, and slight GIMENEZ. Per triage, visiting RN called EMS as she states that she did not feel safe at home. Nausea , decreased appetite, and GIMENEZ are noted to be present from the past few days. She reports a cough as well but describes it as chronic. Patient denies abdominal pain, chest pain, SOB, pain/edema in BLE. She is alert and oriented x2 , patient is aware that she is in [place] but is unsure where she is specifically (could not say [facility]). In the room, she states that she does not feel safe "any place, except maybe here". Hx of dementia, she is fuzzy on history. Patient has a band on her wrist stating that patient was admitted to [facility] on 07/14/18. She received radial cardiac catheterization, cannot give any more details beyond. Patient lives at home in [place], she has not been taking her meds. She has a son in [place] who was contacted, no response. FMHx of cardiac disease in mother. Patient is unsure if she is on blood thinners at this time. She reports chronic cough. On physical exam, patient is noted to be hypertensive, RUQ scar from cholecystectomy. Denies CP, SOB. CXR. IMPRESSION: NO ACTIVE CARDIOPULMONARY DISEASE. BRAIN CT IMPRESSION: NO ACUTE INTRACRANIAL PATHOLOGY. CHRONIC SMALL VESSEL ISCHEMIC CHANGE. EKG showed sinus rhythm with rate of 75 BPM, nml AVIVCT, nml axis, nml QTc. No ectopy, non-specific ST. Inverted T waves V1-V6. No acute changes. No significant change compared to EKG from 05/21/18. Second EKG showed sinus rhythm with rate of 78 BPM, nml AVIVCT, nml axis, nml QTc. No ectopy, non-specific ST. Inverted T waves V1-V6. No acute changes. No significant change compared to first EKG. Both EKG's discussed with Dr. Molina and do not show acute change while in ED, in view of elevated troponin. Labs showed MPV 7, BUN/creatinine ratio 24.1, glucose 106, lactic acid 0.8, calcium 10.6, magnesium 1.6, ammonia 47. Troponin was 0.29. Tox screen was negative. During ED course, patient was given lopressor 5 mg IV and Tylenol tab 650 mg PO. Patient's case was discussed with Dr. Islas at 1335, Dr. Islas recommends contacting [facility] for cardiac cath records and Dr. Molina. 1341 - Dr. Molina was consulted, he notes that [facility] medical records are necessary, notes that patient likely had a cardiac event and was revascularized , trop would likely be downward trending, however without records unable to know fully the significance of elevated troponin. With EKG unchanged in the ED, unlikely to be ACS. Control of BP with metoprolol recommended, which is also beneficial if recent [place]. Also recommends continuing Brilinta. Dr. Molina not formally consulted. Hospitalists will contact cardiology if consult desired. 1407 - updated Dr. Islas on what Dr. Molina stated. Dr. Islas accepts patient for admission. [facility] records received which show pt had acute [place], cardiac catheterization with drug eluting stent placed. Troponin is trending down based on [facility] records. - Diagnoses Provider Diagnoses: Elevated troponin, Status post cardiac catheterization, Paranoid ideation, Dementia, Confusion, Hypertension, poor control - Physician Notifications Discussed Care Of Patient With: Lety Islas Time Discussed With Above Provider: 13:35 Instructed by Provider To: Other - Patient's case was discussed with Dr. Islas at 1335, Dr. Islas recommends contacting [facility] for cardiac cath records and Dr. Molina. 1341 - Dr. Molina was consulted, he notes that [facility] medical records are necessary, notes that patient likely had a cardiac event and was revascularized, trop would likely be downward trending. Control of BP with metoprolol recommended. 1407 - updated Dr. Islas on what Dr. Molina stated. Dr. Islas accepts patient for admission. Discharge - Sign-Out/Discharge Documenting (check all that apply): Patient Departure - admit All imaging exams completed and their final reports reviewed: Yes - Discharge Plan Condition: Stable Disposition: ADMITTED TO [facility] - Billing Disposition and Condition Condition: STABLE Disposition: Admitted to [facility] - Attestation Statements Document Initiated by Krysta: Yes Documenting Deisiibalma delia: YULI LOPEZ Provider For Whom Krysta is Documenting (Include Credential): PILI LIN MD Scribe Attestation: YULI Reyna , scribed for PILI LIN MD on 07/20/18 at 2153. Scribe Documentation Reviewed: Yes Provider Attestation: The documentation as recorded by the YULI gomez accurately reflects the service I personally performed and the decisions made by me, PILI LIN MD Status of Scribe Document: Viewed
[2018-07-19 12:39] LABS: ABS Basophils 0 10^3/ul (0-0.2); ABS Eosinophils 0 10^3/ul (0-0.6); ABS Monocytes 0.5 10^3/ul (0-0.8); ABS Nucleated RBC 0 10^3/ul; Eosinophil % 0.5 %; Hematocrit 41 % (35-47); Hemoglobin 13.7 g/dl (12.0-16.0); Lymphocyte % 30.4 %; Mean Corpuscular HGB Conc 34 g/dl (31-36); Mean Corpuscular Hemoglobin 31 pg (27-31); Mean Corpuscular Volume 93 fL (80-97); Nucleated Red Blood Cells % 0; Platelet Count 240 10^3/ul (150-450); Red Cell Distribution Width 14 % (10.5-15); White Blood Count 6.5 10^3/ul (3.5-10.8)
[2018-07-19 13:00] LABS: ALT 8 U/L (7-52); AST 13 U/L (13-39); Albumin 4.2 g/dL (3.2-5.2); Albumin/Globulin Ratio 1.4 (1-3); Alkaline Phosphatase 59 U/L (34-104); Anion Gap 7 mmol/L (2-11); BUN/Creatinine Ratio 24.1 (8-20); Blood Urea Nitrogen 19 mg/dL (6-24); CO2 Carbon Dioxide 25 mmol/L (22-32); Calcium 10.6 mg/dL (8.6-10.3); Chloride 107 mmol/L (101-111); Creatine Kinase 44 U/L (10-223); EGFR African American 83.7 (>60); EGFR Non-African American 69.2 (>60); Globulin 2.9 g/dL (2-4); Glucose 106 mg/dL (70-100); Magnesium 1.6 mg/dL (1.9-2.7); Potassium 3.8 mmol/L (3.5-5.0); Sodium 139 mmol/L (135-145); Total Protein 7.1 g/dL (6.4-8.9)
[2018-07-19 13:01] LABS: Acetaminophen < 15 mcg/mL; Alcohol < 10 mg/dL (<10); Salicylate < 2.50 mg/dL (<30)
[2018-07-19 13:03] LABS: Troponin I 0.29 ng/mL (<0.04)
[2018-07-19 13:13] LABS: TSH (Thyroid Stimulating Horm) 2.75 mcIU/mL (0.34-5.60)
[2018-07-19 13:47] LABS: INR 0.95 (0.77-1.02)
[2018-07-19] MEDS ORDERED: Metoprolol Tartrate IV* 1 MG/ML 5 ML VIAL IV ONE (13:48)
[2018-07-19] MEDS ORDERED: Acetaminophen TAB* 325 MG PO ONE (14:16)
[2018-07-19] MEDS ORDERED: Magnesium Sulfate IV* 3 GM in NS 0.9% 100 ML* 100 ML IVPB ONE (15:13)
[2018-07-19] MEDS ORDERED: Al Hydrox/Mg Hydrox/Simet LIQ* 30 ML UDC PO PRN (15:15)
[2018-07-19] MEDS ORDERED: Nitroglycerin TAB 0.4 MG* 0.4 MG TAB SL PRN (15:35)
--- NOTE | 2018-07-19 17:24 | HP ---
ADDENDUM NOW INCLUDED ON THIS REPORT CC: Dr. Solomon * HISTORY AND PHYSICAL: DATE OF ADMISSION: 07/19/18 PRIMARY CARE PROVIDER: Dr. Solomon. CHIEF COMPLAINT: "I don't feel safe at home, I want to go to rehab." HISTORY OF PRESENT ILLNESS: Fariba Deras is an 87-year-old female, who stated she has had problems with memory ever since her frequent hospitalization started in February of 2018. The patient remembers that she was at [facility] and had cardiac stents placed after she developed chest pain. She has a bracelet on her arm noting the day of admission to [facility] of 07/14/18. Nevertheless, the patient does not remember when she was discharged, does not remember how many days she was at [facility] and how many days she spent at home after the discharge. The patient does not remember how she was brought home from her discharge at [facility] in [place]. She was seen by visiting nurse today for the first time for followup of her hospital visit and she was noted to be forgetful and asked the nurse to bring her to the hospital since she does not feel safe at home. She stated that she has many family members in the area, but they are all busy with "their own issues." The patient denies any chest pain or shortness of breath. She stated that she feels that her upper body strength is very diminished. She ambulates with a rolling walker, but with problems. She has chronic right hip pain. Upon evaluation in the emergency department, she was noted to have troponin of 0.2 and EKG changes that show resolution of ST-elevation TX. The patient has currently no chest pain. She is going to be admitted to telemetry monitored bed with a diagnosis of generalized weakness. I suspect the patient's troponin is likely downtrending from her acute TX that she suffered from several days ago. PAST MEDICAL HISTORY: 1. Hypertension. 2. Hyperlipidemia. 3. History of coronary artery disease with recent stenting at [facility], likely on 07/14/18. 4. History of kidney stones. 5. Osteoporosis. 6. Osteoarthritis. 7. History of falls and lumbar compression fractures in the recent past. PAST SURGICAL HISTORY: 1. Status post bilateral hip replacements. 2. Status post hysterectomy. 3. Lithotripsy x2. 4. Bilateral cataract extractions. 5. Cholecystectomy. 6. Appendectomy. MEDICATIONS: Include: 1. Nitroglycerin on a p.r.n. basis. 2. Omeprazole 20 mg daily. 3. Multivitamin 1 tablet daily. 4. Losartan 100 mg daily. 5. Gabapentin 300 mg at bedtime. 6. Brilinta 90 mg b.i.d. 7. Cymbalta 60 mg daily. 8. Fosamax 70 mg weekly. 9. Tylenol on a p.r.n. basis. 10. Metoprolol tartrate 50 mg b.i.d. 11. Atorvastatin 40 mg at bedtime. 12. Aspirin 81 mg daily. ALLERGIES: LEVAQUIN and PLASTIC TAPE. FAMILY HISTORY: History of mother with heart disease and father after being stabbed. SOCIAL HISTORY: The patient denies any tobacco, alcohol, or drug use. 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 She is a and she has 2 children. Apparently, today she is indicating her son-in-law to be the person who will be readily accessible, but she is unable to give me the phone number. The phone number of her son in the demographics in the computerized medical records, both of the numbers were called and there is no answer. I did leave an information to call us back in the son's answering machine. The patient also has a daughter, Lakisha Chapman, who apparently is her healthcare proxy. REVIEW OF SYSTEMS: The patient stated that she has chronic right hip pain. She complains of generalized weakness and problems with getting out of bed. She has not fallen recently. She denies any chest pain or shortness of breath. Last chest pain occurred when "she had a heart attack," but she does not remember what it was. The patient stated that she "does not remember anything" for the past couple of months, everything is "a blur." Specifically, she has no recollections of her last hospital stay apart from that that she got stents in her heart. All the remaining 12 systems were reviewed with the patient and were otherwise negative. PHYSICAL EXAMINATION GENERAL: The patient is a very pleasant 87-year-old female, who is well groomed and well kempt, in no acute distress. The patient is aware of her age. She knows that it is June 2018, but she does not remember the exact date. She has problems with short-term memory to be able to recall when she was discharged from her recent hospital stay. She does not remember her family's phone numbers and how to contact them. VITAL SIGNS: Blood pressure of 136/65, heart rate of 62 and regular, respiratory rate 26, oxygen saturation 93% on room air, temperature of 98.4. HEENT: Head: Atraumatic, normocephalic. Eyes: Pupils are equal, reactive to light and accommodation. Oropharynx is clear. Mucosa moist. NECK: Supple. No JVD. No bruits bilaterally. RESPIRATORY: Clear to auscultation bilaterally. CARDIOVASCULAR: Regular rate and rhythm. No murmur. ABDOMEN: Soft, nontender. Bowel sounds are present in all 4 quadrants. EXTREMITIES: There is no edema. Pulses are +2 bilaterally. No clubbing or cyanosis. NEUROLOGIC: Speech is clear. Cranial nerves II through XII are grossly intact. Motor strength is 5/5 in bilateral upper and lower extremities. On straight leg raise in bilateral lower extremities, the patient has limitations of raising her legs above 40 degrees on the right side due to hip pain, which as per the patient is chronic. SKIN: On evaluation of the skin, no rashes noted. DIAGNOSTIC STUDIES/LAB DATA: Shows white blood cell count of 6.5, hemoglobin of 13.7, hematocrit of 41, and platelets of 240. Sodium was 139, potassium 3.8 , chloride 107, carbon dioxide 25, BUN 19, creatinine 0.79. Calcium level of 10.6. Liver function tests unremarkable. Magnesium of 1.6. Troponin of 0.29. TSH of 2.75. The patient's EKG showed normal sinus rhythm with heart rate of 78 beats per minute with mild ST elevation and negative T-waves in leads V2, V3 and V4, as well as negative T-waves in leads V4 to V6 suggestive of recent ischemia. Comparing with an EKG from April of 2018, the negative Ts are new. Those changes are dynamic and repeated EKG shows exactly the same changes. The patient's portable chest x-ray, impression: "No active cardiopulmonary disease." Brain CT, impression: "No acute intracranial pathology. Chronic small vessel ischemic changes." ASSESSMENT AND PLAN: 1. The patient is forgetful and she reports that she has had problems with memory for the past several months. 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 It could have worsened after her hospital stay at [facility]. At this point, the patient needs placement. I am unable to contact any of the family members. I will ask Social Work as well as Physical Therapy and Occupational Therapy to see the patient in evaluation for short-term rehabilitation. 2. The patient has elevated troponin and history of recent heart attack with stents. At this point, she has no chest pain, no shortness of breath and no other indication of acute coronary syndrome. I suspect that troponin elevation is probably on its decline from what it was at [facility] the patient had suffered from ST-elevation myocardial infarction. 3. The patient's hypomagnesemia is going to be replaced IV. 4. The patient has mild hypercalcemia. I will check parathyroid hormone level to evaluate it further. 5. For DVT prophylaxis, the patient is going to be placed on heparin subcutaneously. 6. The patient's code status is full and her surrogate is likely her daughter, although the patient herself does not remember and she asked me to call her son or her son-in-law and once again I was unable to do so and reach anyone. In the medical records, the patient has history of DNR, but once again, at this point she is not competent to make decisions and I do not have any family member to confirm it and she is going to be placed on full code for the time being. 7. For her history of recent stenting and coronary artery disease, the patient' s Brilinta and aspirin are going to be continued. 8. For hypertension, her metoprolol and losartan are going to be continued. TIME SPENT: Approximately 65 minutes was spent on admission of this patient, more than half that time was spent [id number] with the patient during the admission and evaluation. ADDENDUM: Please note that we just received medical records from [facility]. The patient was hospitalized there after she was transferred from her home in [place] to [facility] where she was transferred to [facility] for further evaluation of non-ST elevation TX. She remained hemodynamically stable and she had cardiac catheterization and noted to have 1- vessel coronary artery disease and drug-eluting stent was placed into the diagonal. She was placed on Brilinta, started on beta-sylvain and ARB. She was discharged on 07/17/18 to go home. Her echocardiogram showed EF of 55% to 60% with left ventricular wall motion abnormal. The patient's troponin was noted to be at 5.5 on 07/15/18. At this point, it appears that the patient has no further symptoms of coronary artery disease and her troponin is decreasing at this point. The patient failed patient discharge and she is too forgetful and feels that she cannot manage at home alone. At this point, I am unable to contact the patient's family members and she is going to be admitted for PT and OT evaluation for short-term rehabilitation placement. [id number]/[facility]PS #: [id number]/CPS #: [id number] MARK
--- NOTE | 2018-07-19 19:02 | HP ---
CC: Dr. Solomon HISTORY AND PHYSICAL: ADDENDUM: Please note that we just received medical records from [facility]. The patient was hospitalized there after she was transferred from her home in [place] to [facility] where she was transferred to [facility] for further evaluation of non-ST elevation OH. She remained hemodynamically stable and she had cardiac catheterization and noted to have 1- vessel coronary artery disease and drug-eluting stent was placed into the diagonal. She was placed on Brilinta, started on beta-sylvain and ARB. She was discharged on 07/17/18 to go home. Her echocardiogram showed EF of 55% to 60% with left ventricular wall motion abnormal. The patient's troponin was noted to be at 5.5 on 07/15/18. At this point, it appears that the patient has no further symptoms of coronary artery disease and her troponin is decreasing at this point. The patient failed patient discharge and she is too forgetful and feels that she cannot manage at home alone. At this point, I am unable to contact the patient's family members and she is going to be admitted for PT and OT evaluation for short-term rehabilitation placement. [id number]/[facility] #: [id number] MARK
[2018-07-19] MEDS: Atorvastatin* 40 MG TAB PO SCH (21:03)
[2018-07-19] MEDS: Ticagrelor* 90 MG TAB PO SCH (21:03)
[2018-07-19] MEDS: Metoprolol Tartrate TAB* 50 mg PO SCH (21:03)
[2018-07-19] MEDS: Gabapentin CAP(*) 300 MG PO SCH (21:03)
[2018-07-19] MEDS: Acetaminophen TAB* 325 MG PO PRN (21:09)
[2018-07-19] MEDS: Heparin VIAL(*) 5000 UNITS/ML VIAL (FIVE THOUSAND) SUBCUT SCH (21:12)
[2018-07-19] MEDS: Docusate CAP* 100 MG PO SCH (21:14)
[2018-07-19 22:58] LABS: Urine Appearance Turbid; Urine Bacteria Absent (Absent); Urine Bilirubin Negative (Negative); Urine Blood Negative (Negative); Urine Color Yellow; Urine Glucose Negative (Negative); Urine Ketones Negative (Negative); Urine Nitrite Negative (Negative); Urine Protein Negative (Negative); Urine Red Blood Cell Trace(0-2/hpf) (Absent); Urine Specific Gravity 1.019 (1.010-1.030); Urine Squamous Epithelial Cell Present (Absent); Urine Urobilinogen Negative (Negative); Urine White Blood Cell 3+(>20/hpf) (Absent)
[2018-07-19 23:04] LABS: Barbiturates Urine Screen None Detected (None Detect); Benzodiazepine Urine Screen None Detected (None Detect); Urine Cannabinoids Screen None Detected (None Detect)
[2018-07-20] MEDS: Heparin VIAL(*) 5000 UNITS/ML VIAL (FIVE THOUSAND) SUBCUT SCH ×3 (05:43→20:42)
[2018-07-20 07:52] LABS: ABS Basophils 0 10^3/ul (0-0.2); ABS Eosinophils 0.1 10^3/ul (0-0.6); ABS Lymphocytes 1.7 10^3/ul (1.0-4.8); ABS Monocytes 0.5 10^3/ul (0-0.8); ABS Neutrophils 2.5 10^3/ul (1.5-7.7); ABS Nucleated RBC 0 10^3/ul; Eosinophil % 2.4 %; Hematocrit 40 % (35-47); Hemoglobin 13.2 g/dl (12.0-16.0); Mean Corpuscular HGB Conc 34 g/dl (31-36); Mean Corpuscular Hemoglobin 31 pg (27-31); Mean Corpuscular Volume 92 fL (80-97); Mean Platelet Volume 7.2 fL (7.4-10.4); Nucleated Red Blood Cells % 0.1; Platelet Count 219 10^3/ul (150-450); Red Cell Distribution Width 14 % (10.5-15); White Blood Count 4.9 10^3/ul (3.5-10.8)
[2018-07-20 08:13] LABS: BUN/Creatinine Ratio 19.7 (8-20); Calcium 9.9 mg/dL (8.6-10.3); EGFR African American 94.7 (>60); EGFR Non-African American 78.2 (>60); Potassium 3.7 mmol/L (3.5-5.0)
[2018-07-20] MEDS: Losartan TAB* 25 MG PO SCH (08:23)
[2018-07-20] MEDS: Ticagrelor* 90 MG TAB PO SCH ×2 (08:24→20:37)
[2018-07-20] MEDS: Aspirin 81 mg CHEW TAB* 81 MG TAB.CHEW PO SCH (08:24)
[2018-07-20] MEDS: DULoxetine DR CAP* 60 MG CAP.DR PO SCH (08:26)
[2018-07-20] MEDS: Pantoprazole TAB * 40 MG TAB PO SCH (08:26)
[2018-07-20] MEDS: Multivitamins/Minerals TAB PO SCH (08:26)
[2018-07-20] MEDS: Docusate CAP* 100 MG PO SCH ×2 (08:27→20:37)
[2018-07-20] MEDS: Metoprolol Tartrate TAB* 50 mg PO SCH ×3 (08:29→20:37)
[2018-07-20] MEDS: Acetaminophen TAB* 325 MG PO PRN (13:21)
--- NOTE | 2018-07-20 14:54 | PN ---
Subjective Date of Service: 07/20/18 Objective Active Medications: Acetaminophen (Tylenol Tab*) 650 mg PO Q4H PRN PRN Reason: FEVER/PAIN Last Admin: 07/20/18 13:21 Dose: 650 mg Al Hydrox/Mg Hydrox/Simethicone (Maalox Plus*) 30 ml PO Q6H PRN PRN Reason: INDIGESTION Aspirin (Aspirin 81 Mg Chew Tab*) 81 mg PO DAILY [facility] Last Admin: 07/20/18 08:24 Dose: 81 mg Atorvastatin Calcium (Lipitor*) 40 mg PO BEDTIME [facility] Last Admin: 07/19/18 21:03 Dose: 40 mg Docusate Sodium (Colace Cap*) 100 mg PO BID [facility] Last Admin: 07/20/18 08:27 Dose: 100 mg Duloxetine HCl (Cymbalta Cap*) 60 mg PO DAILY [facility] Last Admin: 07/20/18 08:26 Dose: 60 mg Gabapentin (Neurontin Cap(*)) 300 mg PO BEDTIME [facility] Last Admin: 07/19/18 21:03 Dose: 300 mg Heparin Sodium (Porcine) (Heparin Vial(*)) 5,000 units SUBCUT Q8HR [facility] Last Admin: 07/20/18 13:23 Dose: 5,000 units Losartan Potassium (Cozaar Tab*) 100 mg PO DAILY [facility] Last Admin: 07/20/18 08:23 Dose: 100 mg Metoprolol Tartrate (Lopressor Tab*) 50 mg PO BID [facility] Last Admin: 07/20/18 08:42 Dose: 50 mg Multivitamins/Minerals (Theragran/Minerals Tab*) 1 tab PO DAILY [facility] Last Admin: 07/20/18 08:26 Dose: 1 tab Nitroglycerin (Nitroglycerin Tab 0.4 Mg*) 0.4 mg SL Q5M PRN PRN Reason: PAIN - CHEST Pantoprazole Sodium (Protonix Tab*) 40 mg PO DAILY [facility] Last Admin: 07/20/18 08:26 Dose: 40 mg Ticagrelor (Brilinta*) 90 mg PO BID [facility] Last Admin: 07/20/18 08:24 Dose: 90 mg Vital Signs - 8 hr 07/20/18 07/20/18 07/20/18 07:12 08:00 11:37 Temperature 97.8 F 97.7 F Pulse Rate 54 54 Respiratory 20 18 18 Rate Blood Pressure 135/70 125/64 (mmHg) O2 Sat by Pulse 98 97 Oximetry Oxygen Devices in Use Now: None Result Diagrams: 07/20/18 07:31 07/20/18 07:31 Assess/Plan/Problems-Billing Assessment: This is a pleasant 87 year old female with recent [place] and stenting at [facility] that presents with weakness and confusion. - Patient Problems (1) Confusion Code(s): R41.0 - DISORIENTATION, UNSPECIFIED SNOMED Code(s): 081926018 Comment: - Etiology unclear, seems to have had acute delerium at admission - May be related to recent hospitalizations and illness - appears appropriate today, patient states she gets confused or forgetful sometimes when in a stressful environment, but keeps a journal to write everything down which helps - Mentation currently appropriate - PT/OT evals (2) Coronary artery disease Code(s): I25.10 - ATHSCL HEART DISEASE OF [place] CORONARY ARTERY W/O ANG PCTRS SNOMED Code(s): 75774286 Comment: - s/p [place] with stenting at [facility] - Continue ASA and Brilinta - Trop was 5.5 on the , negligible elevation now, does not correlate with ACS, no chest pain, trending down from recent event (3) HTN (hypertension) Code(s): I10 - ESSENTIAL (PRIMARY) HYPERTENSION SNOMED Code(s): 42519438 Comment: - Continue metoprolol and losartan (4) Hyperlipidemia Code(s): E78.5 - HYPERLIPIDEMIA, UNSPECIFIED SNOMED Code(s): 60553672 Comment: - Continue statin. (5) DVT prophylaxis Code(s): NAK0151 - SNOMED Code(s): 863381378 Comment: - Heparin SQ (6) DNR (do not resuscitate) Comment: - Confirmed her wishes, MOLST updated Status and Disposition: Inpatient, dispo to [facility].
[2018-07-20] MEDS: Atorvastatin* 40 MG TAB PO SCH (20:37)
[2018-07-20] MEDS: Gabapentin CAP(*) 300 MG PO SCH (20:38)
[2018-07-21] MEDS: Heparin VIAL(*) 5000 UNITS/ML VIAL (FIVE THOUSAND) SUBCUT SCH ×3 (06:20→20:51)
[2018-07-21] MEDS: DULoxetine DR CAP* 60 MG CAP.DR PO SCH (08:42)
[2018-07-21] MEDS: Pantoprazole TAB * 40 MG TAB PO SCH (08:43)
[2018-07-21] MEDS: Ticagrelor* 90 MG TAB PO SCH ×2 (08:43→20:45)
[2018-07-21] MEDS: Aspirin 81 mg CHEW TAB* 81 MG TAB.CHEW PO SCH (08:43)
[2018-07-21] MEDS: Metoprolol Tartrate TAB* 50 mg PO SCH ×2 (08:43→20:45)
[2018-07-21] MEDS: Docusate CAP* 100 MG PO SCH ×2 (08:43→20:46)
[2018-07-21] MEDS: Multivitamins/Minerals TAB PO SCH (08:43)
[2018-07-21] MEDS: Losartan TAB* 25 MG PO SCH (08:43)
--- NOTE | 2018-07-21 16:04 | PN ---
Subjective Date of Service: 07/21/18 Interval History: Patient seen and examined. No complaints today, states she is still feeling improved. Denies chest pain, no n/v, no SOB, no fever or chills. Objective Active Medications: Acetaminophen (Tylenol Tab*) 650 mg PO Q4H PRN PRN Reason: FEVER/PAIN Last Admin: 07/20/18 13:21 Dose: 650 mg Al Hydrox/Mg Hydrox/Simethicone (Maalox Plus*) 30 ml PO Q6H PRN PRN Reason: INDIGESTION Aspirin (Aspirin 81 Mg Chew Tab*) 81 mg PO DAILY [facility] Last Admin: 07/21/18 08:43 Dose: 81 mg Atorvastatin Calcium (Lipitor*) 40 mg PO BEDTIME [facility] Last Admin: 07/20/18 20:37 Dose: 40 mg Docusate Sodium (Colace Cap*) 100 mg PO BID [facility] Last Admin: 07/21/18 08:43 Dose: 100 mg Duloxetine HCl (Cymbalta Cap*) 60 mg PO DAILY [facility] Last Admin: 07/21/18 08:42 Dose: 60 mg Gabapentin (Neurontin Cap(*)) 300 mg PO BEDTIME [facility] Last Admin: 07/20/18 20:38 Dose: 300 mg Heparin Sodium (Porcine) (Heparin Vial(*)) 5,000 units SUBCUT Q8HR [facility] Last Admin: 07/21/18 13:35 Dose: 5,000 units Losartan Potassium (Cozaar Tab*) 100 mg PO DAILY [facility] Last Admin: 07/21/18 08:43 Dose: 100 mg Metoprolol Tartrate (Lopressor Tab*) 50 mg PO BID [facility] Last Admin: 07/21/18 08:43 Dose: 50 mg Multivitamins/Minerals (Theragran/Minerals Tab*) 1 tab PO DAILY [facility] Last Admin: 07/21/18 08:43 Dose: 1 tab Nitroglycerin (Nitroglycerin Tab 0.4 Mg*) 0.4 mg SL Q5M PRN PRN Reason: PAIN - CHEST Pantoprazole Sodium (Protonix Tab*) 40 mg PO DAILY [facility] Last Admin: 07/21/18 08:43 Dose: 40 mg Ticagrelor (Brilinta*) 90 mg PO BID [facility] Last Admin: 07/21/18 08:43 Dose: 90 mg Vital Signs - 8 hr 07/21/18 11:17 Temperature 97.4 F Pulse Rate 57 Respiratory 20 Rate Blood Pressure 142/55 (mmHg) O2 Sat by Pulse 98 Oximetry Oxygen Devices in Use Now: None Appearance: alert, NAD Eyes: No Scleral Icterus, PERRLA Ears/Nose/Mouth/Throat: Mucous Membranes Moist Neck: NL Appearance and Movements; NL JVP, Trachea Midline Respiratory: Symmetrical Chest Expansion and Respiratory Effort, Clear to Auscultation Cardiovascular: NL Sounds; No Murmurs; No JVD, RRR, No Edema Abdominal: NL Sounds; No Tenderness; No Distention Extremities: No Edema, No Clubbing, Cyanosis Skin: No Rash or Ulcers Neurological: Alert and Oriented x 3, NL Sensation Nutrition: Taking PO's Result Diagrams: 07/20/18 07:31 07/20/18 07:31 Diagnostic Imaging: Patient Name: HEATHER MOORE Medical Record#: [id number] Ordering Physician: Monse Narayanan MD Acct.#: [id number] : 1930 Age: 87 Sex: F Location: EMERGENCY DEPARTMENT Exam Date: 07/19/18 114 ADM Status: REG ER Order Information: CT BRAIN WO Accession Number: [id number] CPT: 43735 HISTORY: altered mental status, HTN COMPARISONS: May 19, 2018 TECHNIQUE: Multiple contiguous axial CT scans were obtained of the head without intravenous contrast. FINDINGS: HEMORRHAGE/INFARCT: There is no hemorrhage or acute infarct. MASSES/SHIFT: There is no mass or shift. EXTRA-AXIAL SPACES: There are no extra-axial fluid collections. SULCI AND VENTRICLES: The sulci and ventricles are normal in size and position for the patient's stated age. CEREBRUM: There is hypoattenuation of the periventricular and subcortical white matter. BRAINSTEM: There are no focal parenchymal abnormalities. CEREBELLUM: There are no focal parenchymal abnormalities. VESSELS: The vessels are grossly normal. PARANASAL SINUSES: The paranasal sinuses are clear. ORBITS: The orbits are unremarkable. BONES AND SOFT TISSUE: No bone or soft tissue abnormalities are noted. OTHER: None IMPRESSION: NO ACUTE INTRACRANIAL PATHOLOGY. CHRONIC SMALL VESSEL ISCHEMIC CHANGE <Electronically signed by Kareem Gonzalez MD in [place]> 07/19/181312 Dictated By: Kareem Gonzalez MD Dictated Date/Time: 07/19/181312 Transcribed Date/Time: 07/19/181312 Copy to: Assess/Plan/Problems-Billing Assessment: This is a pleasant 87 year old female with recent [place] and stenting at [facility] that presents with weakness and confusion. - Patient Problems (1) Confusion Code(s): R41.0 - DISORIENTATION, UNSPECIFIED SNOMED Code(s): 292239903 Comment: - Etiology unclear, seems to have had acute delerium at admission - May be related to recent hospitalizations and illness - Appears to have consistent improvement, but remains impulsive - Patient states she does feel forgetful (2) Coronary artery disease Code(s): I25.10 - ATHSCL HEART DISEASE OF [place] CORONARY ARTERY W/O ANG PCTRS SNOMED Code(s): 61625248 Comment: - s/p [place] with stenting at [facility] - Continue ASA and Brilinta - Trop was 5.5 on the , negligible elevation now, does not correlate with ACS, no chest pain, trending down from recent event (3) HTN (hypertension) Code(s): I10 - ESSENTIAL (PRIMARY) HYPERTENSION SNOMED Code(s): 55888981 Comment: - Continue metoprolol and losartan (4) Hyperlipidemia Code(s): E78.5 - HYPERLIPIDEMIA, UNSPECIFIED SNOMED Code(s): 46396464 Comment: - Continue statin. (5) DVT prophylaxis Code(s): ZVA0100 - SNOMED Code(s): 504557647 Comment: - Heparin SQ (6) DNR (do not resuscitate) Comment: - Confirmed her wishes, MOLST updated Status and Disposition: Inpatient, dispo to [facility] when bed available, likely [place].
[2018-07-21] MEDS: Gabapentin CAP(*) 300 MG PO SCH (20:46)
[2018-07-21] MEDS: Atorvastatin* 40 MG TAB PO SCH (20:50)
[2018-07-22] MEDS: Heparin VIAL(*) 5000 UNITS/ML VIAL (FIVE THOUSAND) SUBCUT SCH ×3 (06:44→22:23)
[2018-07-22] MEDS: Losartan TAB* 25 MG PO SCH (08:58)
[2018-07-22] MEDS: Ticagrelor* 90 MG TAB PO SCH ×2 (08:58→19:43)
[2018-07-22] MEDS: Aspirin 81 mg CHEW TAB* 81 MG TAB.CHEW PO SCH (08:58)
[2018-07-22] MEDS: DULoxetine DR CAP* 60 MG CAP.DR PO SCH (08:58)
[2018-07-22] MEDS: Metoprolol Tartrate TAB* 50 mg PO SCH ×2 (08:59→19:45)
[2018-07-22] MEDS: Multivitamins/Minerals TAB PO SCH (08:59)
[2018-07-22] MEDS: Docusate CAP* 100 MG PO SCH ×2 (08:59→19:45)
[2018-07-22] MEDS: Pantoprazole TAB * 40 MG TAB PO SCH (08:59)
[2018-07-22] MEDS: Ampicillin CAP* 500 MG PO SCH ×4 (08:59→19:43)
--- NOTE | 2018-07-22 13:15 | PN ---
Subjective Date of Service: 07/22/18 Interval History: Patient seen and examined. Discussed positive urine culture findings. Patient states she has had UTIs in the past. States no fever or chills, no burning with urination, no chest pain and no SOB. Objective Active Medications: Acetaminophen (Tylenol Tab*) 650 mg PO Q4H PRN PRN Reason: FEVER/PAIN Last Admin: 07/20/18 13:21 Dose: 650 mg Al Hydrox/Mg Hydrox/Simethicone (Maalox Plus*) 30 ml PO Q6H PRN PRN Reason: INDIGESTION Ampicillin (Ampicillin Cap*) 500 mg PO QID [facility] Last Admin: 07/22/18 08:59 Dose: 500 mg Aspirin (Aspirin 81 Mg Chew Tab*) 81 mg PO DAILY [facility] Last Admin: 07/22/18 08:58 Dose: 81 mg Atorvastatin Calcium (Lipitor*) 40 mg PO BEDTIME [facility] Last Admin: 07/21/18 20:50 Dose: 40 mg Docusate Sodium (Colace Cap*) 100 mg PO BID [facility] Last Admin: 07/22/18 08:59 Dose: 100 mg Duloxetine HCl (Cymbalta Cap*) 60 mg PO DAILY [facility] Last Admin: 07/22/18 08:58 Dose: 60 mg Gabapentin (Neurontin Cap(*)) 300 mg PO BEDTIME [facility] Last Admin: 07/21/18 20:46 Dose: 300 mg Heparin Sodium (Porcine) (Heparin Vial(*)) 5,000 units SUBCUT Q8HR [facility] Last Admin: 07/22/18 06:44 Dose: 5,000 units Losartan Potassium (Cozaar Tab*) 100 mg PO DAILY [facility] Last Admin: 07/22/18 08:58 Dose: 100 mg Metoprolol Tartrate (Lopressor Tab*) 50 mg PO BID [facility] Last Admin: 07/22/18 08:59 Dose: 50 mg Multivitamins/Minerals (Theragran/Minerals Tab*) 1 tab PO DAILY [facility] Last Admin: 07/22/18 08:59 Dose: 1 tab Nitroglycerin (Nitroglycerin Tab 0.4 Mg*) 0.4 mg SL Q5M PRN PRN Reason: PAIN - CHEST Pantoprazole Sodium (Protonix Tab*) 40 mg PO DAILY [facility] Last Admin: 07/22/18 08:59 Dose: 40 mg Ticagrelor (Brilinta*) 90 mg PO BID [facility] Last Admin: 07/22/18 08:58 Dose: 90 mg Vital Signs - 8 hr 07/22/18 07/22/18 08:00 08:26 Temperature 97.5 F Pulse Rate 62 Respiratory 16 18 Rate Blood Pressure 125/68 (mmHg) O2 Sat by Pulse 96 Oximetry Oxygen Devices in Use Now: None Appearance: alert, NAD Eyes: No Scleral Icterus, PERRLA Ears/Nose/Mouth/Throat: Mucous Membranes Moist Neck: NL Appearance and Movements; NL JVP Respiratory: Symmetrical Chest Expansion and Respiratory Effort, Clear to Auscultation Cardiovascular: NL Sounds; No Murmurs; No JVD, RRR, No Edema Abdominal: NL Sounds; No Tenderness; No Distention Skin: No Rash or Ulcers, No Nodules or Sclerosis Neurological: Alert and Oriented x 3 Nutrition: Taking PO's Result Diagrams: 07/20/18 07:31 07/20/18 07:31 Microbiology and Other Data: Microbiology 07/19/18 22:30 Urine Culture - Final Urine Enterococcus Faecalis Normal [facility]: Patient Name: HEATHER MOORE Medical Record#: [id number] Ordering Physician: Monse Narayanan MD Acct.#: [id number] : 1930 Age: 87 Sex: F Location: EMERGENCY DEPARTMENT Exam Date: 07/19/181148 ADM Status: REG ER Order Information: CT BRAIN WO Accession Number: [id number] CPT: 81671 HISTORY: altered mental status, HTN COMPARISONS: May 19, 2018 TECHNIQUE: Multiple contiguous axial CT scans were obtained of the head without intravenous contrast. FINDINGS: HEMORRHAGE/INFARCT: There is no hemorrhage or acute infarct. MASSES/SHIFT: There is no mass or shift. EXTRA-AXIAL SPACES: There are no extra-axial fluid collections. SULCI AND VENTRICLES: The sulci and ventricles are normal in size and position for the patient's stated age. CEREBRUM: There is hypoattenuation of the periventricular and subcortical white matter. BRAINSTEM: There are no focal parenchymal abnormalities. CEREBELLUM: There are no focal parenchymal abnormalities. VESSELS: The vessels are grossly normal. PARANASAL SINUSES: The paranasal sinuses are clear. ORBITS: The orbits are unremarkable. BONES AND SOFT TISSUE: No bone or soft tissue abnormalities are noted. OTHER: None IMPRESSION: NO ACUTE INTRACRANIAL PATHOLOGY. CHRONIC SMALL VESSEL ISCHEMIC CHANGE <Electronically signed by Kareem Gonzalez MD in [place]> 07/19/181312 Dictated By: Kareem Gonzalez MD Dictated Date/Time: 07/19/181312 Transcribed Date/Time: 07/19/181312 Copy to: Assess/Plan/Problems-Billing Assessment: This is a pleasant 87 year old female with recent NM and stenting at [facility] that presents with weakness and confusion. - Patient Problems (1) UTI (urinary tract infection) Comment: - Entereococcus on micro report - Started on ampicillin (2) Confusion Code(s): R41.0 - DISORIENTATION, UNSPECIFIED SNOMED Code(s): 573620200 Comment: - Given positive urine culture today, this may be the etiology of her acute delerium - Appears to have consistent improvement, responded well to IVF, but remains impulsive at times - Started ampicillin today (3) Coronary artery disease Code(s): I25.10 - ATHSCL HEART DISEASE OF [place] CORONARY ARTERY W/O ANG PCTRS SNOMED Code(s): 55007790 Comment: - s/p NM with stenting at [facility] - Continue ASA and Brilinta - Trop was 5.5 on the , negligible elevation now, does not correlate with ACS, no chest pain, trending down from recent event (4) HTN (hypertension) Code(s): I10 - ESSENTIAL (PRIMARY) HYPERTENSION SNOMED Code(s): 83645193 Comment: - Continue metoprolol and losartan (5) Hyperlipidemia Code(s): E78.5 - HYPERLIPIDEMIA, UNSPECIFIED SNOMED Code(s): 26261566 Comment: - Continue statin. (6) DVT prophylaxis Code(s): KCM0490 - SNOMED Code(s): 823838345 Comment: - Heparin SQ (7) DNR (do not resuscitate) Comment: - Confirmed her wishes, MOLST updated to reflect DNR/DNI Status and Disposition: Inpatient, dispo to [facility] when bed available, likely [place].
[2018-07-22] MEDS: Atorvastatin* 40 MG TAB PO SCH (19:43)
[2018-07-22] MEDS: Gabapentin CAP(*) 300 MG PO SCH (19:44)
[2018-07-23] MEDS: Heparin VIAL(*) 5000 UNITS/ML VIAL (FIVE THOUSAND) SUBCUT SCH ×3 (06:16→21:43)
[2018-07-23] MEDS: Losartan TAB* 25 MG PO SCH (09:19)
[2018-07-23] MEDS: Aspirin 81 mg CHEW TAB* 81 MG TAB.CHEW PO SCH (09:20)
[2018-07-23] MEDS: Ticagrelor* 90 MG TAB PO SCH ×2 (09:20→21:43)
[2018-07-23] MEDS: DULoxetine DR CAP* 60 MG CAP.DR PO SCH (09:20)
[2018-07-23] MEDS: Metoprolol Tartrate TAB* 50 mg PO SCH ×2 (09:20→21:42)
[2018-07-23] MEDS: Docusate CAP* 100 MG PO SCH ×2 (09:21→21:43)
[2018-07-23] MEDS: Ampicillin CAP* 500 MG PO SCH ×4 (09:21→21:43)
[2018-07-23] MEDS: Pantoprazole TAB * 40 MG TAB PO SCH (09:21)
[2018-07-23] MEDS: Multivitamins/Minerals TAB PO SCH (09:21)
--- NOTE | 2018-07-23 13:57 | PN ---
Subjective Date of Service: 07/23/18 Interval History: Patient seen and examined. No acute overnight events, patient states she is feeling better, no urinary complaints, no SOB, no chest pain, no weakness fever or chills. Objective Active Medications: Acetaminophen (Tylenol Tab*) 650 mg PO Q4H PRN PRN Reason: FEVER/PAIN Last Admin: 07/20/18 13:21 Dose: 650 mg Al Hydrox/Mg Hydrox/Simethicone (Maalox Plus*) 30 ml PO Q6H PRN PRN Reason: INDIGESTION Last Admin: 07/22/18 23:31 Dose: 30 ml Ampicillin (Ampicillin Cap*) 500 mg PO QID [facility] Last Admin: 07/23/18 09:21 Dose: 500 mg Aspirin (Aspirin 81 Mg Chew Tab*) 81 mg PO DAILY [facility] Last Admin: 07/23/18 09:20 Dose: 81 mg Atorvastatin Calcium (Lipitor*) 40 mg PO BEDTIME [facility] Last Admin: 07/22/18 19:43 Dose: 40 mg Docusate Sodium (Colace Cap*) 100 mg PO BID [facility] Last Admin: 07/23/18 09:21 Dose: 100 mg Duloxetine HCl (Cymbalta Cap*) 60 mg PO DAILY [facility] Last Admin: 07/23/18 09:20 Dose: 60 mg Gabapentin (Neurontin Cap(*)) 300 mg PO BEDTIME [facility] Last Admin: 07/22/18 19:44 Dose: 300 mg Heparin Sodium (Porcine) (Heparin Vial(*)) 5,000 units SUBCUT Q8HR [facility] Last Admin: 07/23/18 06:16 Dose: 5,000 units Losartan Potassium (Cozaar Tab*) 100 mg PO DAILY [facility] Last Admin: 07/23/18 09:19 Dose: 100 mg Metoprolol Tartrate (Lopressor Tab*) 50 mg PO BID [facility] Last Admin: 07/23/18 09:20 Dose: 50 mg Multivitamins/Minerals (Theragran/Minerals Tab*) 1 tab PO DAILY [facility] Last Admin: 07/23/18 09:21 Dose: 1 tab Nitroglycerin (Nitroglycerin Tab 0.4 Mg*) 0.4 mg SL Q5M PRN PRN Reason: PAIN - CHEST Pantoprazole Sodium (Protonix Tab*) 40 mg PO DAILY [facility] Last Admin: 07/23/18 09:21 Dose: 40 mg Ticagrelor (Brilinta*) 90 mg PO BID [facility] Last Admin: 07/23/18 09:20 Dose: 90 mg Vital Signs - 8 hr 07/23/18 07/23/18 08:00 08:06 Temperature 97.7 F Pulse Rate 59 Respiratory 18 20 Rate Blood Pressure 143/53 (mmHg) O2 Sat by Pulse 98 Oximetry Oxygen Devices in Use Now: None Appearance: alert, NAD Eyes: No Scleral Icterus, PERRLA Ears/Nose/Mouth/Throat: Clear Oropharnyx, Mucous Membranes Moist Neck: NL Appearance and Movements; NL JVP, Trachea Midline Respiratory: Symmetrical Chest Expansion and Respiratory Effort, Clear to Auscultation Cardiovascular: NL Sounds; No Murmurs; No JVD, RRR, No Edema Abdominal: NL Sounds; No Tenderness; No Distention Extremities: No Clubbing, Cyanosis Skin: No Rash or Ulcers Neurological: - - A&Ox2 Nutrition: Taking PO's Result Diagrams: 07/20/18 07:31 07/20/18 07:31 Microbiology and Other Data: Microbiology 07/19/18 22:30 Urine Culture - Final Urine Enterococcus Faecalis Normal [facility]: Patient Name: HEATHER MOOER Medical Record#: [id number] Ordering Physician: Monse Narayanan MD Acct.#: [id number] : 1930 Age: 87 Sex: F Location: EMERGENCY DEPARTMENT Exam Date: 07/19/18 1149 ADM Status: REG ER Order Information: CT BRAIN WO Accession Number: [id number] CPT: 13109 HISTORY: altered mental status, HTN COMPARISONS: May 19, 2018 TECHNIQUE: Multiple contiguous axial CT scans were obtained of the head without intravenous contrast. FINDINGS: HEMORRHAGE/INFARCT: There is no hemorrhage or acute infarct. MASSES/SHIFT: There is no mass or shift. EXTRA-AXIAL SPACES: There are no extra-axial fluid collections. SULCI AND VENTRICLES: The sulci and ventricles are normal in size and position for the patient's stated age. CEREBRUM: There is hypoattenuation of the periventricular and subcortical white matter. BRAINSTEM: There are no focal parenchymal abnormalities. CEREBELLUM: There are no focal parenchymal abnormalities. VESSELS: The vessels are grossly normal. PARANASAL SINUSES: The paranasal sinuses are clear. ORBITS: The orbits are unremarkable. BONES AND SOFT TISSUE: No bone or soft tissue abnormalities are noted. OTHER: None IMPRESSION: NO ACUTE INTRACRANIAL PATHOLOGY. CHRONIC SMALL VESSEL ISCHEMIC CHANGE <Electronically signed by Kareem Gonzalez MD in [place]> 07/19/181312 Dictated By: Kareem Gonzalez MD Dictated Date/Time: 07/19/181312 Transcribed Date/Time: 07/19/181312 Copy to: Assess/Plan/Problems-Billing Assessment: This is a pleasant 87 year old female with recent IN and stenting at [facility] that presents with weakness and confusion. - Patient Problems (1) UTI (urinary tract infection) Comment: - Entereococcus on micro report - Started on ampicillin, responding well (2) Confusion Code(s): R41.0 - DISORIENTATION, UNSPECIFIED SNOMED Code(s): 348119836 Comment: - Given positive urine culture, this may be the etiology of her acute delerium - Appears to have consistent improvement, responded well to IVF, but remains impulsive at times - Continue ampicillin (3) Coronary artery disease Code(s): I25.10 - ATHSCL HEART DISEASE OF [place] CORONARY ARTERY W/O ANG PCTRS SNOMED Code(s): 28073327 Comment: - s/p IN with stenting at [facility] this month - Continue ASA and Brilinta - Trop was 5.5 on the , negligible elevation now, does not correlate with ACS, no chest pain, trending down from recent event - Stable (4) HTN (hypertension) Code(s): I10 - ESSENTIAL (PRIMARY) HYPERTENSION SNOMED Code(s): 66941652 Comment: - Continue metoprolol and losartan (5) Hyperlipidemia Code(s): E78.5 - HYPERLIPIDEMIA, UNSPECIFIED SNOMED Code(s): 67980492 Comment: - Continue statin (6) DVT prophylaxis Code(s): KPY1544 - SNOMED Code(s): 883145162 Comment: - Heparin SQ (7) DNR (do not resuscitate) Comment: - Confirmed her wishes, MOLST updated to reflect DNR/DNI Status and Disposition: Inpatient, dispo to [facility] when bed available, likely [place].
[2018-07-23] MEDS: Atorvastatin* 40 MG TAB PO SCH (21:42)
[2018-07-23] MEDS: Gabapentin CAP(*) 300 MG PO SCH (21:42)
[2018-07-24] MEDS: Heparin VIAL(*) 5000 UNITS/ML VIAL (FIVE THOUSAND) SUBCUT SCH (05:37)
[2018-07-24 09:07] VITALS: BP 132/64
[2018-07-24] MEDS: Ticagrelor* 90 MG TAB PO SCH (09:08)
[2018-07-24] MEDS: Multivitamins/Minerals TAB PO SCH (09:08)
[2018-07-24] MEDS: Aspirin 81 mg CHEW TAB* 81 MG TAB.CHEW PO SCH (09:09)
[2018-07-24] MEDS: Metoprolol Tartrate TAB* 50 mg PO SCH (09:09)
[2018-07-24] MEDS: Pantoprazole TAB * 40 MG TAB PO SCH (09:09)
[2018-07-24] MEDS: Losartan TAB* 25 MG PO SCH (09:09)
[2018-07-24] MEDS: Ampicillin CAP* 500 MG PO SCH (09:09)
[2018-07-24] MEDS: Docusate CAP* 100 MG PO SCH (09:09)
[2018-07-24] MEDS: DULoxetine DR CAP* 60 MG CAP.DR PO SCH (09:10)
[2018-07-24] MEDS: Acetaminophen TAB* 325 MG PO PRN (12:08)
--- NOTE | 2018-07-24 13:05 | DS ---
CC: Dr. Renato Solomon * DATE OF ADMISSION: 07/19/2018. DATE OF DISCHARGE: 07/24/2018. PRIMARY CARE PHYSICIAN: Dr. Renato Solomon. ATTENDING PHYSICIAN: Dr. Rodney Hernandez * (dictated by Angella Rios NP). HOSPITAL COURSE: Please refer to admission history and physical from Dr. Lety Islas on 07/19/2018. In short, this is an 87-year-old female who was recently sent to [facility] for chest pain, was found to have an NSTEMI and then was subsequently transferred to [facility] for PCI. The patient did receive a stent and was discharged back home on July 17. On June, she was seen by visiting nurse service for a follow-up. The nurse, upon examining the patient and doing her assessment, found that the patient was somewhat confused and the nurse felt that she was compromised and perhaps there was some underlying infection, and that the patient just was not doing very well being at home by herself. In the emergency department, the patient did state that she did not feel safe at home. She does not have family members close by and having such an acute cardiac event, it was probably better for the patient to be sent to a rehab facility. In any case, the patient was admitted. We trended her troponins. Her EKG showed resolution of her NSTEMI. She had no chest pain and no other anginal equivalence. However, she did still have some persistent weakness, periods of confusion, and then was also having some urinary complaints. The patient ultimately was found to have an enterococcal urinary tract infection. Susceptibilities were followed. The patient was placed on Ampicillin to which she responded very well. The patient has now been accepted to [facility] for subacute rehab for her new cardiac condition and convalescing from her recent urinary tract infection. DISCHARGE DIAGNOSES: 1. Acute confusion and weakness secondary to urinary tract infection, recent hospitalization and PCI. 2. Coronary artery disease, status post NSTEMI and stenting. 3. History of hypertension, well-controlled. 4. Hyperlipidemia, on statin. MEDICATIONS ON DISCHARGE: 1. Nitroglycerin 0.4 mg sublingual as needed. 2. Omeprazole 20 mg p.o. daily. 3. Multivitamin one tablet daily. 4. Losartan 100 mg p.o. daily. 5. Gabapentin 300 mg at bedtime. 6. Brilinta 90 mg p.o. b.i.d. 7. Cymbalta 60 mg p.o. daily. 8. Alendronate 70 mg p.o. weekly. 9. Tylenol 650 mg q.6 hours as needed. 10. Lopressor 50 mg p.o. b.i.d. 11. Atorvastatin 40 mg at bedtime. 12. Aspirin 81 mg daily. 13. Docusate 100 mg p.o. b.i.d. 14. Ampicillin 500 mg p.o. q.i.d. for 4 more days. 15. Maalox 30 ml p.o. q.6 hours as needed. DISPOSITION: The patient will be discharged to [facility]. ACTIVITY: Progress as tolerated. DIET: Heart-healthy as tolerated. CODE STATUS: DNR/DNI. REVIEW OF SYSTEMS ON THE DAY OF DISCHARGE: The patient denies any fever, fatigue, or chills. No chest pain, no shortness of breath, no palpitations. No abdominal pains. No cough. No nausea, no vomiting. No further urinary complaints. She has some chronic arthralgias, chronic right hip pain and right shoulder pain which are at her baseline and manageable. No further constitutional complaints. PHYSICAL EXAMINATION THE DAY OF DISCHARGE: Vital Signs: Blood pressure 132/64 , heart rate 61, O2 saturation 97 percent on room air, respiratory rate 18, temperature 97.5. HEENT: The patient is atraumatic, normocephalic. PERRLA with nonicteric sclerae. Oral mucosa is moist. Tongue is midline. She is edentulous. Neck: Supple, nontender. No JVD noted. No carotid bruits auscultated. Cardiovascular: S1, S2 present. No murmurs, gallops, or rubs noted. Rate and rhythm are currently regular. Lungs: Clear bilaterally to auscultation with no wheezing, rhonchi or rales. Abdomen: Soft, nontender, nondistended. Positive bowel sounds all four quadrants. No organomegaly appreciated. : Deferred. Musculoskeletal: No clubbing and no cyanosis. She has some point tenderness over the right lateral hip area and up into the right shoulder. She has good range of motion. Steady gait. Gross motor and sensation are intact. Psychiatric: She can be forgetful at times, but is otherwise appropriate and alert. LABORATORY DATA: WBC 4.9, RBC 4.30, hemoglobin 13.2, hematocrit 40, platelets 219; sodium 138, potassium 3.7, chloride 107, CO2 24, BUN 14, creatinine 0.71, glucose 121, calcium 9.9. Troponin 0.29 at admission, 0.24, and then 0.19; again this trending down from her NSTEMI. Urinalysis showed 3+ leukocyte esterase, 3+ bacteria, and 3+ WBC. Microbiology shows enterococcus faecalis. DISPOSITION: [facility] for short term rehab. Social Work and Case Management have worked very diligently to communicate with her family on her discharge plan of care. They are aware that the patient will be going to [facility] today and are in agreement with this plan. DIET: Heart healthy as tolerated. ACTIVITY: Progress as tolerated TIME SPENT: Approximately 35 minutes interfacing with patient and staff on discharge plan of care. ANGELLA RIOS NP [id number]/CPS #: [id number] MARK
== END 2018-07-24 14:05 | DRG 689 ==
LOC: ED 10:51 → UNDOADMIN 15:15 → MED 15:15
PROVIDERS: ADMIT Internal Medicine; ATTEND Internal Medicine
DX: N39.0 Urinary tract infection, site not specified (principal); I21.4 Non-ST elevation (NSTEMI) myocardial infarction; E83.52 Hypercalcemia; E83.42 Hypomagnesemia; I11.9 Hypertensive heart disease without heart failure; B95.2 Enterococcus as the cause of diseases classified elsewhere; R41.0 Disorientation, unspecified; Z66 Do not resuscitate; R53.1 Weakness; I25.10 Atherosclerotic heart disease of native coronary artery without angina pectoris; E78.5 Hyperlipidemia, unspecified; M81.0 Age-related osteoporosis without current pathological fracture; M25.512 Pain in left shoulder; R74.8 Abnormal levels of other serum enzymes; M19.90 Unspecified osteoarthritis, unspecified site; M25.551 Pain in right hip; Z96.643 Presence of artificial hip joint, bilateral; Z95.5 Presence of coronary angioplasty implant and graft; Z91.81 History of falling; Z79.1 Long term (current) use of non-steroidal anti-inflammatories (NSAID); Z79.82 Long term (current) use of aspirin; Z79.899 Other long term (current) drug therapy; Z88.1 Allergy status to other antibiotic agents; Z91.048 Other nonmedicinal substance allergy status; Z82.49 Family history of ischemic heart disease and other diseases of the circulatory system
CPT/HCPCS: 36415; 70450; 71045; 80048; 80053; 80307; 80320; 80329; 81003; 81015; 82140; 82550; 83605; 83735; 84443; 84484; 85025; 85610; 87077; 87086; 87186; 93005; 99284; A9270-GY; G0480; G8978-GP-CI; G8979-GP-CI; G8980-GP-CI; G8987-GO-CJ; G8988-GO-CI; J1644; J3475; J3490

== ENCOUNTER 2018-09-24 12:56 | Emergency (ER) | payer MEDICARE ==
[2018-09-24] MEDS ORDERED: Meclizine TAB* 12.5 MG PO ONE (13:03)
--- NOTE | 2018-09-24 13:04 | ED ---
Dizziness - HPI Summary HPI Summary: This pt is an 88 y/o female presenting to [facility] via EMS from [facility] for dizziness for the past week. EMS reports pt has had recent falls, last one was yesterday where she was uninjured and was able to get herself back up. Pt describes dizziness as room spinning. Per EMS, pt was in bed until noon today due to dizziness until an aide was able to help her. She notes she had a headache yesterday but none today. Denies chest pain, abd pain, slurred speech. Pt is hard of hearing and has one hearing aid in right ear. - History Of Current Complaint Stated Complaint: DIZZINESS PER EMS Hx Obtained From: Patient Onset/Duration: Still Present Timing: Days Severity Currently: Moderate Character: Room Spinning, Dizzy Aggravating Factor(s): Nothing Alleviating Factor(s): Nothing Associated Signs And Symptoms: Negative: Chest Pain, SOB, Fever, Chills, Slurred Speech, Other: - NEG: headache, abd pain - Allergies/Home Medications Allergies/Adverse Reactions: Allergies Allergy/AdvReac Type Severity Reaction Status Date / Time Adhesive Tape [Plastic Tape] Allergy See Comment Verified 07/19/18 11:01 levofloxacin Allergy See Comment Verified 07/19/18 11:01 Home Medications: Home Medications Diltiazem TAB* [Cardizem 60 MG Tab*] 120 mg PO DAILY 09/24/18 [History Confirmed 09/24/18] Metoprolol Tartrate TAB* [Lopressor TAB*] 50 mg PO BID 09/24/18 [History Confirmed 09/24/18] Nitroglycerin TAB 0.4 MG* 0.4 mg SL Q5M PRN 09/24/18 [History Confirmed 09/24/18 ] PMH/Surg Hx/FS Hx/Imm Hx Endocrine/Hematology History: Denies: Hx Diabetes Cardiovascular History: Reports: Hx Coronary Artery Disease - S/P radial artery catheterization 06/2018 and stents , Hx Hypertension Denies: Hx Pacemaker/ICD History: Reports: Hx Kidney Stones Denies: Hx Renal Disease Musculoskeletal History: Reports: Hx Arthritis - Osteoarthritis Sensory History: Reports: Hx Contacts or Glasses, Hx Hearing Aid Denies: Hx Legally Blind, Hx Deafness Opthamlomology History: Reports: Hx Contacts or Glasses Denies: Hx Legally Blind Neurological History: Reports: Hx Dementia Psychiatric History: Denies: Hx Panic Disorder - Cancer History Cancer Type, Location and Year: None reported Hx Hematologic Symptoms: No Hx Chemotherapy: No Hx Radiation Therapy: No Hx Palliative Cancer Treatment: No - Surgical History Surgery Procedure, Year, and Place: gallbladder, B/L hip, appy, cholecystectomy , tubal ligation, hysterectomy, bladder resection, cardiac catheterization - Immunization History Date of Tetanus Vaccine: utd Date of Influenza Vaccine: fall 2017 - Family History Known Family History: Positive: Cardiac Disease - mother - Social History Alcohol Use: None Substance Use Type: Reports: None Smoking Status (MU): Never Smoked Tobacco Review of Systems Negative: Fever Negative: Chest Pain Neurological: Other - POS: dizziness Negative: Headache, Slurred Speech All Other Systems Reviewed And Are Negative: Yes Physical Exam - Summary Physical Exam Summary: VITAL SIGNS: Reviewed. GENERAL: Patient is a well-developed and nourished female who is lying comfortable in the stretcher. Patient is not in any acute respiratory distress. HEAD AND FACE: No signs of trauma. No ecchymosis, hematomas or skull depressions. No sinus tenderness. EYES: PERRLA, EOMI x 2, No injected conjunctiva, no nystagmus. EARS: Deaf in the left ear. Hearing aid in the right ear. Ear canals and tympanic membranes are within normal limits. MOUTH: Oropharynx within normal limits. NECK: Supple, trachea is midline, no adenopathy, no JVD, no carotid bruit, no c- spine tenderness, neck with full ROM. CHEST: Symmetric, no tenderness at palpation LUNGS: Clear to auscultation bilaterally. No wheezing or crackles. CVS: Regular rate and rhythm, S1 and S2 present, no murmurs or gallops appreciated. ABDOMEN: Soft, non-tender. No signs of distention. No rebound no guarding, and no masses palpated. Bowel sounds are normal. EXTREMITIES: FROM in all major joints, no edema, no cyanosis or clubbing. NEURO: Alert and oriented x 3. No acute neurological deficits. Speech is normal and follows commands. SKIN: Dry and warm GCS: 15 Triage Information Reviewed: Yes Vital Signs On Initial Exam: Initial Vitals Temp Pulse Resp BP Pulse Ox 98.8 F 54 18 160/73 96 09/24/18 13:08 09/24/18 13:08 09/24/18 13:08 09/24/18 13:08 09/24/18 13:08 Vital Signs Reviewed: Yes Diagnostics - Laboratory Result Diagrams: 09/24/18 13:26 09/24/18 13:26 Lab Statement: Any lab studies that have been ordered have been reviewed, and results considered in the medical decision making process. - Radiology Chest XR Radiology Interpretation Completed By: Radiologist Summary of Radiographic Findings: IMPRESSION: No active cardiopulmonary disease is noted. Dr. Bennett has reviewed this report. - CT Brain CT CT Interpretation Completed By: Radiologist Summary of CT Findings: IMPRESSION: There is no evidence of intracranial mass or hemorrhage noted. Chronic ischemic white matter change is noted. Dr. Bennett has reviewed this report. - EKG 13:27 Cardiac Rate: Bradycardia - at 52 bpm EKG Rhythm: Sinus Bradycardia EKG Comparison: No Significant Change - Similar to prior EKG on 07/19/18. Summary of EKG Findings: T wave inversions in V2, V3, V4, V5, V6. Re-Evaluation - Re-Evaluation First Eval Re-Evaluation Time: 14:57 Comment: I reviewed the results with the pt. Second Eval Re-Evaluation Time: 15:10 Comment: Pt was ambulated in the ED by an aide. Pt has a good steady walk. She uses a walker at baseline. Dizzy Course/Dx - Course Assessment/Plan: This patient is an 88-year-old female who presents to the emergency department with a chief complaint of having dizziness. Test results without any significant abnormality except for glucose of 124, magnesium 1.8. Chest x-ray impression: no active cardiopulmonary disease. Head CT impression: There is no evidence for intracranial mass, hemorrhage. Chronic ischemic white matter changes. In the ED course the patient was given magnesium by mouth, IV fluids and meclizine for the dizziness. After these medications the patient reports that she is feeling better. She has intermittent dizziness but right now she is feeling better she wants to go home. The patient was ambulated with one of the aides and she has a good steady walk. I discussed all the findings and test results with the patient. Patient was instructed to return to the emergency room immediately if any of the symptoms return worsens. Plan of care was discussed with the patient and understands and agrees. All questions were answered at patient satisfaction. There were no further complaints or concerns. Lung exam before discharge: CTA B/L. Good air exchange. No wheezing or crackles heard. CVS: S1 and S2 present. No murmurs appreciated. Patient is alert and oriented x 3. Patient is hemodynamically stable. Patient will be discharged home with follow up from his PCP in the next 2-3 days. - Diagnoses Differential Diagnosis/HQI/PQRI: Anxiety, Benign Paroxysmal Positional Vertigo, CVA, Labyrinthitis, Meniere's Disease Provider Diagnoses: Vertigo Discharge - Sign-Out/Discharge Documenting (check all that apply): Patient Departure - Discharge home Patient Received Moderate/Deep Sedation with Procedure: No - Discharge Plan Condition: Stable Disposition: HOME Patient Education Materials: Vertigo (ED) Referrals: Renato Solomon MD [Primary Care Provider] - Additional Instructions: FOLLOW UP WITH YOUR PRIMARY CARE PROVIDER IN 2-3 DAYS. RETURN TO THE EMERGENCY DEPARTMENT FOR ANY WORSENING OR NEW SYMPTOMS. - Billing Disposition and Condition Condition: STABLE Disposition: Home - Attestation Statements Document Initiated by Deisiibe: Yes Documenting Scribe: Slime Gar Provider For Whom Krysta is Documenting (Include Credential): Caden Bennett MD Scribe Attestation: Slime Reyna scribed for Caden Bennett MD on 09/24/18 at 1831. Scribe Documentation Reviewed: Yes Provider Attestation: The documentation as recorded by the Slime gomez accurately reflects the service I personally performed and the decisions made by Caden watts MD Status of Scribe Document: Viewed
[2018-09-24 13:33] LABS: ABS Basophils 0 10^3/ul (0-0.2); ABS Eosinophils 0 10^3/ul (0-0.6); ABS Lymphocytes 2.4 10^3/ul (1.0-4.8); ABS Monocytes 0.7 10^3/ul (0-0.8); ABS Nucleated RBC 0 10^3/ul; Eosinophil % 0.4 %; Hematocrit 43 % (33-41); Hemoglobin 14.6 g/dL (12.0-16.0); Lymphocyte % 23.4 %; Mean Corpuscular HGB Conc 34 g/dL (31-36); Mean Corpuscular Hemoglobin 30 pg (27-31); Mean Corpuscular Volume 90 fL (80-97); Nucleated Red Blood Cells % 0.1; Platelet Count 249 10^3/uL (150-450); Red Cell Distribution Width 15 % (10.5-15); White Blood Count 10.1 10^3/uL (3.5-10.8)
[2018-09-24 13:51] LABS: Albumin 4.5 g/dL (3.2-5.2); Albumin/Globulin Ratio 1.6 (1-3); BUN/Creatinine Ratio 15.9 (8-20); C Reactive Protein 1.41 mg/L (<8.01); Calcium 10.4 mg/dL (8.6-10.3); EGFR Non-African American 66.1 (>60); Globulin 2.8 g/dL (2-4); Magnesium 1.8 mg/dL (1.9-2.7); Potassium 3.8 mmol/L (3.5-5.0); Total Bilirubin 0.9 mg/dL (0.2-1.0); Total Protein 7.3 g/dL (6.4-8.9)
[2018-09-24 13:53] LABS: Troponin I 0.03 ng/mL (<0.04)
[2018-09-24 15:05] LABS: TSH (Thyroid Stimulating Horm) 1.81 mcIU/mL (0.34-5.60)
[2018-09-24] MEDS ORDERED: Magnesium Oxide TAB* 400 MG PO ONE (15:06)
[2018-09-24 15:27] VITALS: BP 152/77
== END 2018-09-24 15:26 | disposition home or self-care (01) ==
LOC: ED 12:56
DX: R42 Dizziness and giddiness (principal); I25.10 Atherosclerotic heart disease of native coronary artery without angina pectoris; I10 Essential (primary) hypertension
CPT/HCPCS: 36415; 70450; 71046; 80053; 83605; 83735; 83880; 84443; 84484; 85025; 86140; 93005; 99283; A9270-GY

== ENCOUNTER → 2018-11-07 11:01 | Emergency (ER) | payer MEDICARE ==
[~2018-11-07 11:01] MED LIST: Albuterol 2.5 MG/3 ML NEB.SOL* (0.083%) INH ONE; DOXYcycline CAP(*) 100 MG PO ONE
--- NOTE | 2018-11-07 11:15 | ED ---
Shortness of Breath - HPI Summary HPI Summary: An 88 y/o female brought in by [facility] ambulance presents to [facility] with a chief complaint of SOB with movement for two weeks. She notes that her sore throat will tingle her and lead to her SOB. She reports coughing up lots of yellow phlegm. She denies fever although she thinks that she is warm. She claims that she has been having difficulty sleeping. She also c/o intermittent headaches. She denies smoking or EtOH use. She walks with a walker. Her PCP is Dr. Mcconnell. - History of Current Complaint Time Seen by Provider: 11/07/18 11:08 Hx Obtained From: Patient, EMS Onset/Duration: Gradual Onset, Lasting Weeks, Still Present Timing: Intermittent Episodes Lasting: Current Severity: Mild Dyspnea At: Exertion Aggrevating Factors: Movement Alleviating Factors: Nothing Associated Signs & Symptoms: Negative, Cough (Productive), Edema - Allergy/Home Medications Allergies/Adverse Reactions: Allergies Allergy/AdvReac Type Severity Reaction Status Date / Time Adhesive Tape [Plastic Tape] Allergy See Comment Verified 11/07/18 11:16 levofloxacin Allergy See Comment Verified 11/07/18 11:16 Home Medications: Home Medications Alendronate (NF) [Fosamax (NF)] 70 mg PO WEEKLY 11/07/18 [History Confirmed ] Aspirin EC TAB* [Ecotrin EC Low Dose 81 MG*] 81 mg PO DAILY 11/07/18 [History Confirmed 11/07/18] Cyanocobalamin (Vitamin B-12) [Vitamin B-12] 1,000 mcg SL DAILY 11/07/18 [ History Confirmed 11/07/18] Cyanocobalamin TAB* [Vitamin B12 TAB*] 500 mcg PO DAILY 11/07/18 [History Confirmed 11/07/18] PMH/Surg Hx/FS Hx/Imm Hx Endocrine/Hematology History: Denies: Hx Diabetes Cardiovascular History: Reports: Hx Coronary Artery Disease - S/P radial artery catheterization 06/2018 and stents , Hx Hypertension Denies: Hx Pacemaker/ICD History: Reports: Hx Kidney Stones Denies: Hx Renal Disease Musculoskeletal History: Reports: Hx Arthritis - Osteoarthritis Sensory History: Reports: Hx Contacts or Glasses, Hx Hearing Aid Denies: Hx Legally Blind, Hx Deafness Opthamlomology History: Reports: Hx Contacts or Glasses Denies: Hx Legally Blind Neurological History: Reports: Hx Dementia Psychiatric History: Denies: Hx Panic Disorder - Cancer History Cancer Type, Location and Year: None reported Hx Hematologic Symptoms: No Hx Chemotherapy: No Hx Radiation Therapy: No Hx Palliative Cancer Treatment: No - Surgical History Surgery Procedure, Year, and Place: gallbladder, B/L hip, appy, cholecystectomy , tubal ligation, hysterectomy, bladder resection, cardiac catheterization - Immunization History Date of Tetanus Vaccine: utd Date of Influenza Vaccine: fall 2017 - Family History Known Family History: Positive: Cardiac Disease - mother - Social History Alcohol Use: None Substance Use Type: Reports: None Hx Tobacco Use: No Smoking Status (MU): Never Smoked Tobacco Review of Systems Negative: Fever Positive: Sore Throat Positive: Shortness Of Breath, Cough Positive: Headache All Other Systems Reviewed And Are Negative: Yes Physical Exam - Summary Physical Exam Summary: Appearance: Well-appearing, Well-nourished, lying in bed comfortably Skin: Warm, dry, no obvious rash Eyes: sclera anicteric, no conjunctival pallor ENT: mucous membranes moist, pharynx appears normal Neck: Supple, nontender Respiratory: respiratory wheezing both sides Cardiovascular: Normal S1, S2. No murmurs. Normal distal pulses in tibial and radial bilaterally. Abdomen: Soft, nontender, normal active bowel sounds present Musculoskeletal: Normal, Strength/ROM Intact, trace edema in legs Neurological: A&Ox3, awake and alert, mentation is normal, speech is fluent and appropriate Psychiatric: affect is normal, does not appear anxious or depressed Triage Information Reviewed: Yes Vital Signs Reviewed: Yes Diagnostics - Laboratory Result Diagrams: 11/07/18 11:56 11/07/18 11:56 Lab Statement: Any lab studies that have been ordered have been reviewed, and results considered in the medical decision making process. - Radiology CXR Radiology Interpretation Completed By: Radiologist Summary of Radiographic Findings: No active cardiopulmonary disease is noted. ED physician has reviewed this imaging report. - EKG 11:21 Cardiac Rate: NL - 86bpm EKG Rhythm: Sinus Rhythm Summary of EKG Findings: NSR at 86 BPM, P waves, QRS complex, and T waves are within normal limits, T waves and intervals are normal, no ischemic changes. This is a normal EKG. Compared to prior, T-wave inversions anteriorly, wave resolved. Course/Dx - Course Course Of Treatment: An 88 y/o female brought in by [facility] ambulance presents to [facility] with a chief complaint of SOB with movement for two weeks. The physical exam revealed respiratory wheezing both sides and trace edema in legs. EKG showed NSR at 86 BPM, P waves, QRS complex, and T waves are within normal limits , T waves and intervals are normal, no ischemic changes. This is a normal EKG. Compared to prior, T-wave inversions anteriorly, wave resolved. In the ED course the patient was given Albuterol INH. CXR impression: No active cardiopulmonary disease is noted. Bloodwork and chemistries obtained and are WNL. The patient will be discharged home with a prescription for Doxycycline and follow up with her PCP. The patient is agreeable with this plan. - Diagnoses Provider Diagnoses: Bronchitis Discharge - Sign-Out/Discharge Documenting (check all that apply): Patient Departure - DC Patient Received Moderate/Deep Sedation with Procedure: No - Discharge Plan Condition: Good Disposition: HOME Prescriptions: DOXYcycline CAP(*) [DOXYcycline 100MG CAP(*)] 100 mg PO BID #20 cap Patient Education Materials: Acute Bronchitis (ED) Referrals: Renato Solomon MD [Medical Doctor] - 1 Week (if not improving) - Billing Disposition and Condition Condition: GOOD Disposition: Home - Attestation Statements Document Initiated by Krysta: Yes Documenting Scribe: Andrzej Presley Provider For Whom Krysta is Documenting (Include Credential): Shmuel Orozco MD Scribe Attestation: Andrzej Reyna scribed for Shmuel Orozco MD on 11/09/18 at 0934. Scribe Documentation Reviewed: Yes Provider Attestation: The documentation as recorded by the Andrzej gomez accurately reflects the service I personally performed and the decisions made by Shmuel watts MD Status of Scribe Document: Viewed
[2018-11-07 12:05] LABS: ABS Eosinophils 0.1 10^3/ul (0-0.6); ABS Monocytes 0.6 10^3/ul (0-0.8); ABS Neutrophils 5.5 10^3/ul (1.5-7.7); Hematocrit 38 % (35-47); Hemoglobin 12.5 g/dL (12.0-16.0); Lymphocyte % 23.8 %; Mean Corpuscular HGB Conc 33 g/dL (31-36); Mean Corpuscular Hemoglobin 31 pg (27-31); Mean Corpuscular Volume 92 fL (80-97); Mean Platelet Volume 6.6 fL (7.4-10.4); Nucleated Red Blood Cells % 0.1; Platelet Count 228 10^3/uL (150-450); Red Cell Distribution Width 16 % (10.5-15); White Blood Count 8.3 10^3/uL (3.5-10.8)
[2018-11-07 12:27] LABS: Troponin I 0.03 ng/mL (<0.04)
[2018-11-07 12:29] LABS: Albumin 4.2 g/dL (3.2-5.2); Albumin/Globulin Ratio 1.6 (1-3); BUN/Creatinine Ratio 13.6 (8-20); Calcium 10.5 mg/dL (8.6-10.3); EGFR African American 102.7 (>60); EGFR Non-African American 84.9 (>60); Globulin 2.6 g/dL (2-4); Potassium 3.8 mmol/L (3.5-5.0); Total Bilirubin 0.7 mg/dL (0.2-1.0); Total Protein 6.8 g/dL (6.4-8.9)
[2018-11-07 14:23] VITALS: BP 148/76
== END | disposition home or self-care (01) ==
LOC: ED 11:01
DX: J40 Bronchitis, not specified as acute or chronic (principal); I25.10 Atherosclerotic heart disease of native coronary artery without angina pectoris; I10 Essential (primary) hypertension
CPT/HCPCS: 36415; 71046; 80053; 83605; 83880; 84484; 85025; 87040; 93005; 99283; A9270-GY